=== PATIENT | female | born 1945 | race Caucasian/White ===

== ENCOUNTER 2017-05-16 10:03 | Emergency (ER) | payer OTHER ==
[~2017-05-16] VITALS: Ht 160 cm; Wt 63.0 kg
[~2017-05-16 10:03] MED LIST: AMLO5TAB4 PO; ASPI-664 PO; CARV25TA79 PO; CIPR500T4 PO; DICY20TA59 PO; FERR324T6 PO; GABA100C14 PO; LANT3I SC; LEVE500T8 PO; LINA5TAB PO; LISI20TA11 PO; METF1000 PO; ONDA4TAB35 PO; TRAM-40 PO; [UNRECOGNIZED DRUG - CODE] PO
[2017-05-16 10:06] VITALS: Ht 160 cm; Wt 63.0 kg
--- NOTE | 2017-05-16 10:49 | ERD ---
ER Documentation Chief Complaint Date/Time DATE: 05/16/17 TIME: 10:49 Chief Complaint HEADCAHE , DIZZINESS , NAUSEA HPI 71-year-old female with history of diabetes, hypertension, GERD, seizure disorder, status post remote left BKA ambulatory to the ED with her daughter with multiple complaints. Patient was in her usual state of health until this afternoon. After taking her insulin she experienced generalized weakness, mild, generalized headache, nausea, lightheadedness and malaise. No seizure, syncope or loss of consciousness. Daughter checked her blood sugar and it was 66 mg/dL. Gave some sweets and patient immediately felt better. Currently is back to baseline. No chest pain, palpitations, shortness of breath or cough. No visual changes, focal weakness or numbness. No URI symptoms or body aches. No dysuria, polyuria or flank pain. No fevers or chills. ROS All systems reviewed and are negative except as per history of present illness. Medications Home Meds Active Scripts Ferrous Sulfate (Ferrous Sulfate) 324 Mg Tabsr, 324 MG PO BID, #60 0 Refills Prov:GRAY GARSIA MD 01/18/16 Amlodipine Besylate* (Norvasc*) 5 Mg Tablet, 10 MG PO DAILY, #30 TAB 1 Refill Prov:GRAY GARSIA MD 01/18/16 Carvedilol* (Carvedilol*) 25 Mg Tablet, 50 MG PO BID, #60 TAB 1 Refill Prov:GRAY GARSIA MD 01/18/16 Reported Medications Ibuprofen* (Motrin*) 600 Mg Tab, 600 MG PO Q6H Y for PAIN, TAB 05/16/17 Insulin Lispro (Humalog Kwikpen) 200 Unit/1 Ml Insuln.pen, 5 UNIT SQ AC MEALS, EA 05/16/17 Insulin Glargine,Hum.rec.anlog (Toujeo Solostar) 300 Unit/1 Ml Insuln.pen, 10 UNIT SQ QHS 05/16/17 Omeprazole* (Omeprazole*) 20 Mg Capsule.dr, 20 MG PO DAILY, #30 CAP 05/16/17 Gabapentin* (Gabapentin*) 100 Mg Capsule, 100 MG PO TID, #90 CAP 01/14/16 Metformin Hcl* (Metformin Hcl*) 1,000 Mg Tablet, 1000 MG PO BID WITH MEALS, TAB 06/13/15 Levetiracetam* (Levetiracetam*) 500 Mg Tablet, 500 MG PO BID, TAB 06/13/15 Lisinopril* (Lisinopril*) 20 Mg Tablet, 20 MG PO DAILY, TAB 06/13/15 Aspirin (Low Dose Aspirin) 81 Mg Tablet.dr, 81 MG PO DAILY 06/13/15 Discontinued Reported Medications Insulin Glargine* (Lantus*) 100 Unit/Ml Soln, 27 UNIT SC QHS, VIAL 01/14/16 Linagliptin (TRADJENTA) 5 Mg Tablet, 5 MG PO DAILY 06/13/15 Discontinued Scripts Ciprofloxacin Hcl* (Ciprofloxacin Hcl*) 500 Mg Tablet, 500 MG PO BID, #14 TAB Prov:MEKHI SIDDIQUISTBRITTAS A. DO 01/21/16 Tramadol Hcl* (Ultram*) 50 Mg Tablet, 50 MG PO Q6H Y for PAIN, #20 TAB Prov:MEKHI SIDDIQUISTBRITTAS A. DO 01/21/16 Dicyclomine Hcl* (Bentyl*) 20 Mg Tablet, 20 MG PO QID, #20 TAB Prov:MEKHI SIDDIQUISTBRITTAS A. DO 01/21/16 Ondansetron Hcl* (Zofran* ODT) 4 mg -ODT Tab.disper, 4 MG PO Q6 Y for NAUSEA AND /OR VOMITING, #10 TAB Prov:MEKHI SIDDIQUISTBRITTAS A. DO 01/21/16 Cefuroxime Axetil* (Ceftin*) 250 Mg Tablet, 250 MG PO BID, #20 TAB 0 Refills Prov:GRAY GARSIA MD 01/18/16 Allergies Allergies: Coded Allergies: acetaminophen (Verified Allergy, Unknown, 05/16/17) hydrocodone (Verified Allergy, Unknown, 05/16/17) PMhx/Soc Reviewed in chart. As per HPI. History of Surgery: Yes (RT GREAT TOE AMPUTATION 15 YEARS AGO,LT BKA 4 YEARS AGO) Anesthesia Reaction: No Hx Neurological Disorder: Yes (SEIZURES) Hx Respiratory Disorders: No Hx Cardiac Disorders: Yes (HTN) Hx Psychiatric Problems: No Hx Miscellaneous Medical Probl: Yes (GERD, DM) Hx Alcohol Use: No Hx Substance Use: No Hx Tobacco Use: No FmHx Reviewed in chart. As per HPI. No hypertension, stroke or diabetes Physical Exam Vitals Vital Signs Date Time Temp Pulse Resp B/P Pulse Ox O2 Delivery O2 Flow Rate FiO2 05/16/17 14:59 98.6 85 21 159/71 99 Room Air 05/16/17 13:30 98.8 80 14 150/60 98 Room Air 05/16/17 12:20 98.9 83 15 149/53 99 Room Air 05/16/17 10:06 98.1 84 18 199/85 100 Physical Exam Const: Alert, no acute distress. Head: Atraumatic Eyes: Normal Conjunctiva. Pupils equal reactive light, extraocular movements are intact ENT: Normal External Ears, Nose and Mouth. Neck: Full range of motion. Nontender. Thyromegaly. Resp: Breath sounds are equal and clear to auscultation bilaterally Cardio: Regular rate and rhythm, no murmurs Abd: Soft, non tender, non distended. Normal bowel sounds Skin: No petechiae or rashes Back: No midline or flank tenderness Ext: No cyanosis, or edema. Status post left BKA Neur: Awake and alert. Cranial nerves II through XII are grossly intact. No focal deficit Psych: Normal Mood and Affect Result Diagram: 05/16/17 1104 05/16/17 1305 Results 24 hrs Laboratory Tests Test 05/16/17 10:54 05/16/17 11:04 05/16/17 13:05 Bedside Glucose 242mg/dL White Blood Count 9.110^3/ul Red Blood Count 3.3810^6/ul Hemoglobin 9.2g/dl Hematocrit 28.4% Mean Corpuscular Volume 84.0fl Mean Corpuscular Hemoglobin 27.2pg Mean Corpuscular Hemoglobin Concent 32.4g/dl Red Cell Distribution Width 13.3% Platelet Count 68302^3/UL Mean Platelet Volume 11.7fl Neutrophils % 69.9% Lymphocytes % 24.9% Monocytes % 4.4% Eosinophils % 0.4% Basophils % 0.1% Nucleated Red Blood Cells % 0.0/100WBC Neutrophils # 6.410^3/ul Lymphocytes # 2.310^3/ul Monocytes # 0.410^3/ul Eosinophils # 0.010^3/ul Basophils # 0.010^3/ul Nucleated Red Blood Cells # 0.010^3/ul Sodium Level 137mmol/L 139mmol/L Potassium Level 5.3mmol/L 4.7mmol/L Chloride Level 111mmol/L 110mmol/L Carbon Dioxide Level 15mmol/L 18mmol/L Anion Gap 16 16 Blood Urea Nitrogen 27mg/dl 27mg/dl Creatinine 1.31mg/dl 1.31mg/dl Glucose Level 255mg/dl 225mg/dl Calcium Level 9.0mg/dl 9.0mg/dl Total Bilirubin 0.0mg/dl Direct Bilirubin 0.00mg/dl Indirect Bilirubin 0.0mg/dl Aspartate Amino Transf (AST/SGOT) 13IU/L Alanine Aminotransferase (ALT/SGPT) 24IU/L Alkaline Phosphatase 81IU/L Troponin I < 0.012ng/ml Total Protein 7.3g/dl Albumin 4.3g/dl Globulin 3.00g/dl Albumin/Globulin Ratio 1.43 Current Medications Medications (Trade) Dose Ordered Sig/Le Route PRN Reason Start Time Stop Time Status Last Admin Dose Admin Sodium Chloride (NS) 500 ml @ 500 mls/hr Q1H STAT IV 05/16/17 12:57 05/16/17 13:56 DC 05/16/17 13:33 EKG: Time: 11:02. Sinus rhythm. Ventricular rate 83, normal OK and QRS intervals. No acute ST segment elevation or depression. No axis deviation or ectopy. EP Impression: Normal EKG IMAGING: PROCEDURE: Chest x-ray CLINICAL INDICATION: Weakness TECHNIQUE: Chest single view COMPARISON: 01/15/2016 FINDINGS: The heart is normal in size. There is stable atherosclerotic aortic calcification. The pulmonary vessels are normal in caliber. The lungs are clear. The costophrenic angles are sharp. The visualized bony thorax is unremarkable. IMPRESSION: No acute cardiopulmonary disease. Stable atherosclerotic aortic calcification There is abnormal calcification right paratracheal space with deviation of the trachea to the left. This may be related to a large thyroid lobe with nodule, tortuous vascularity, or adenopathy. Recommend ultrasound correlation. RPTAT: HH .Demetrius Lincoln MD, MD Date Time Electronically viewed and signed by .Demetrius Lincoln MD, MD on 05/16/2017 11:38 .W/ Procedures/MDM DOCUMENTS REVIEWED: ED nurse, no prior records ED COURSE: Normal saline 500 cc 2. REEXAMINATION/REEVALUATION: Time: 15:00. Doing well. Vital signs stable. Asymptomatic [employer]ISION [employer]KIN-year-old female with history of diabetes, hypertension, GERD, seizure disorder, status post remote left BKA ambulatory to the ED with her daughter with multiple complaints including headache, generalized weakness and malaise. Patient was mildly hypoglycemic and symptoms resolved with oral nutrition. No chest pain, ischemic EKG changes or other signs of ACS. Abdominal exam is benign without tenderness, masses or other signs of an acute intra-abdominal process including abdominal aortic aneurysm or obstruction. Chronic renal insufficiency not significantly changed from baseline. Now with mild hyperglycemia but no DKA or HONK. No fever, leukocytosis or signs of an occult infectious process. Mild headache not consistent with subarachnoid hemorrhage, no focal deficit or indication for neuroimaging. Chest x-ray reveals thyroid abnormality with the patient is already familiar with and has had prior workup which was negative hence no further evaluation be done today. Patient observed in the ED for over 4 hours, asymptomatic and wants to go home. I discussed the case with her PMD, recommends discharge with outpatient follow-up in his office tomorrow. Stable for discharge precautionary instructions and outpatient follow -up as counseled. Counseled patient and daughter regarding diagnostic workup, diagnosis and need for followup. Understands to return to ED if symptoms recur, worsen or any other concerns. Observation Note: Time: 4 hours Family Hx: No Hypertension Evaluation: Multiple exams showed improving symptoms and no evidence of acute neurologic deficit, unstable vital signs or hypoglycemia. Departure Diagnosis: Primary Impression: Hypoglycemia Additional Impressions: Diabetes mellitus Diabetes mellitus type: type 2 Diabetes mellitus complication status: without complication Diabetes mellitus intermodal truck driver insulin use: with intermodal truck driver use Qualified Code: E11.9 - Type 2 diabetes mellitus without complication, with long-term current use of insulin Dehydration Chronic kidney disease Chronic kidney disease stage: unspecified stage Qualified Code: N18.9 - Chronic kidney disease, unspecified stage Condition: Stable (Improved) ANGELES HERNANDEZ MD May 16, 2017 10:49
[2017-05-16 11:23] LABS: ADD SCAN DIFF NO
[2017-05-16 11:38] LABS: BASOPHILS % 0.1 % (0.0-2.0); EOSINOPHILS % 0.4 % (0.0-7.0); HEMATOCRIT 28.4 % (37.0-47.0); HEMOGLOBIN 9.2 g/dl (12.0-16.0); LYMPHOCYTES # 2.3 10^3/ul (0.8-2.9); LYMPHOCYTES % 24.9 % (15.0-51.0); MEAN CORPUSCULAR HEMOGLOBIN 27.2 pg (29.0-33.0); MEAN CORPUSCULAR HGB CONC 32.4 g/dl (32.0-37.0); MONOCYTE # 0.4 10^3/ul (0.3-0.9); MONOCYTES % 4.4 % (0.0-11.0); NEUTROPHIL # 6.4 10^3/ul (1.6-7.5); NEUTROPHILS % 69.9 % (39.0-77.0); PLATELET COUNT 257 10^3/UL (140-415); RED BLOOD COUNT 3.38 10^6/ul (4.20-5.40); RED CELL DISTRIBUTION WIDTH 13.3 % (11.5-14.5); WHITE BLOOD COUNT 9.1 10^3/ul (4.8-10.8)
--- NOTE | 2017-05-16 11:38 | RADRPT ---
PROCEDURE: Chest x-ray CLINICAL INDICATION: Weakness TECHNIQUE: Chest single view COMPARISON: 01/15/2016 FINDINGS: The heart is normal in size. There is stable atherosclerotic aortic calcification. The pulmonary ve ssels are normal in caliber. The lungs are clear. The costophrenic angles are sharp. The visualiz ed bony thorax is unremarkable. IMPRESSION: No acute cardiopulmonary disease. Stable atherosclerotic aortic calcification There is abnormal calcification right paratracheal space with deviation of the trachea to the left. This may be related to a large thyroid lobe with nodule, tortuous vascularity, or adenopathy. [place] mmend ultrasound correlation. RPTAT: HH .Demetrius Lincoln MD, Date Time Electronically viewed and signed by .Demetrius Lincoln MD, on 05/16/2017 11:38 .W/
[2017-05-16 11:39] LABS: MEAN PLATELET VOLUME 11.7 fl (7.4-10.4)
[2017-05-16] MEDS ORDERED: OMEP20CA16 PO (11:58)
[2017-05-16] MEDS ORDERED: INSU300I SQ (11:58)
[2017-05-16] MEDS ORDERED: INSU200I SQ (11:59)
[2017-05-16] MEDS ORDERED: IBUP-1542 PO (11:59)
[2017-05-16 12:06] LABS: ALANINE AMINOTRANSFERASE 24 IU/L (13-69); ALBUMIN 4.3 g/dl (3.3-4.9); ALBUMIN/GLOBULIN RATIO 1.43; ALKALINE PHOSPHATASE 81 IU/L (42-121); ASPARTATE AMINO TRANSFERASE 13 IU/L (15-46); BLOOD UREA NITROGEN 27 mg/dl (7-20); CARBON DIOXIDE 15 mmol/L (21-31); CHLORIDE 111 mmol/L (97-110); CREATININE 1.31 mg/dl (0.44-1.00); GLUCOSE 255 mg/dl (70-220); SODIUM 137 mmol/L (135-144); TOTAL PROTEIN 7.3 g/dl (6.1-8.1)
[2017-05-16 12:27] LABS: ANION GAP 16 (8-16); POTASSIUM 5.3 mmol/L (3.5-5.1); TROPONIN-I < 0.012 ng/ml (0.00-0.12)
[2017-05-16] MEDS ORDERED: SOD CHLORIDE 0.9% 500 ML IV STA (12:57)
[2017-05-16 13:43] LABS: CREATININE 1.31 mg/dl (0.44-1.00); POTASSIUM 4.7 mmol/L (3.5-5.1)
[2017-05-16 14:59] VITALS: BP 159/71; PULSE 85; RESP 21; TEMP 98.6
== END 2017-05-16 15:08 | disposition home or self-care (01) ==
LOC: E/R 10:03
DX: E11.649 Type 2 diabetes mellitus with hypoglycemia without coma (principal); E86.0 Dehydration; I12.9 Hypertensive chronic kidney disease with stage 1 through stage 4 chronic kidney disease, or unspecified chronic kidney disease; N18.9 Chronic kidney disease, unspecified; Z79.4 Long term (current) use of insulin; Z79.82 Long term (current) use of aspirin; Z79.84 Long term (current) use of oral hypoglycemic drugs
CPT/HCPCS: 71010; 80048; 80053; 82962; 84484; 85025; 93005; J7040; 36415; 96360; 96361

== ENCOUNTER 2017-08-30 09:06 | Inpatient (IN) | payer MEDICARE, OTHER ==
[~2017-08-30] VITALS: Ht 157.5 cm; Wt 55.9 kg
[~2017-08-30 09:06] MED LIST changes: -CIPR500T4 PO; -DICY20TA59 PO; +IBUP-1542 PO; +INSU200I SQ; +INSU300I SQ; -LANT3I SC; -LINA5TAB PO; +OMEP20CA16 PO; -ONDA4TAB35 PO; -TRAM-40 PO; -[UNRECOGNIZED DRUG - CODE] PO
[2017-08-30] MEDS ORDERED: AMLO5TAB4 PO (10:01)
[2017-08-30] MEDS ORDERED: ASPI-664 PO (10:03)
[2017-08-30] MEDS ORDERED: CARV12.598 PO (10:05)
[2017-08-30] MEDS ORDERED: LEVE-5 PO (10:05)
[2017-08-30] MEDS ORDERED: SIMV10TA PO (10:06)
[2017-08-30] MEDS ORDERED: INSU3INS2 SQ (10:06)
[2017-08-30] MEDS ORDERED: OMEP20CA16 PO (10:07)
[2017-08-30] MEDS ORDERED: LOSA25TA5 PO (10:07)
[2017-08-30] MEDS ORDERED: ONDANSETRON 4 MG INJ IV PRN ×2 (10:30→14:00)
[2017-08-30] MEDS ORDERED: NA POLYST SULFON 15 GM/60 ML BTL PO ONE (11:30)
[2017-08-30 12:38] VITALS: BP 178/77; PULSE 88; Ht 157.5 cm; Wt 55.9 kg
--- NOTE | 2017-08-30 13:19 | ERD ---
ER Documentation Chief Complaint Chief Complaint sent by pmd for blood transfusion, unknown h&h HPI Patient is a 72-year-old female with hypertension and diabetes who presents for a blood transfusion. The patient was sent by Dr. Dexter for "blood transfusion". The patient said that she has had blood in her stool and urine for the past 15 days. She denies weakness or shortness of breath. She denies pain. She has had no treatment as of yet. ROS All systems reviewed and are negative except as per history of present illness. Medications Home Meds Reported Medications Omeprazole* (Omeprazole*) 20 Mg Capsule.dr, 20 MG PO DAILY, #30 CAP 08/30/17 Losartan Potassium* (Losartan Potassium*) 25 Mg Tablet, 25 MG PO DAILY, TAB 08/30/17 Simvastatin* (Zocor*) 10 Mg Tablet, 10 MG PO QHS, #30 TAB 08/30/17 Insulin Glargine/Lixisenatide (Soliqua 100 Unit-33 Mcg/ml Pen) 3 Ml Insuln.pen, 20 UNITS SQ DAILY 08/30/17 Levetiracetam* (Keppra*) 500 Mg Tablet, 500 MG PO BID, TAB 08/30/17 Carvedilol* (Coreg*) 12.5 Mg Tablet, 12.5 MG PO BID, #60 TAB 08/30/17 Aspirin* (Aspirin* EC) 81 Mg Tablet.dr, 81 MG PO DAILY, TAB 08/30/17 Amlodipine Besylate* (Norvasc*) 5 Mg Tablet, 5 MG PO DAILY, TAB 08/30/17 Gabapentin* (Gabapentin*) 100 Mg Capsule, 100 MG PO TID, #90 CAP 01/14/16 Levetiracetam* (Levetiracetam*) 500 Mg Tablet, 500 MG PO BID, TAB 06/13/15 Discontinued Reported Medications Ibuprofen* (Motrin*) 600 Mg Tab, 600 MG PO Q6H Y for PAIN, TAB 05/16/17 Insulin Lispro (Humalog Kwikpen) 200 Unit/1 Ml Insuln.pen, 5 UNIT SQ AC MEALS, EA 05/16/17 Insulin Glargine,Hum.rec.anlog (Toujeo Solostar) 300 Unit/1 Ml Insuln.pen, 10 UNIT SQ QHS 05/16/17 Omeprazole* (Omeprazole*) 20 Mg Capsule.dr, 20 MG PO DAILY, #30 CAP 05/16/17 Metformin Hcl* (Metformin Hcl*) 1,000 Mg Tablet, 1000 MG PO BID WITH MEALS, TAB 06/13/15 Lisinopril* (Lisinopril*) 20 Mg Tablet, 20 MG PO DAILY, TAB 06/13/15 Aspirin (Low Dose Aspirin) 81 Mg Tablet.dr, 81 MG PO DAILY 06/13/15 Discontinued Scripts Ferrous Sulfate (Ferrous Sulfate) 324 Mg Tabsr, 324 MG PO BID, #60 0 Refills Prov:GRAY GARSIA MD 01/18/16 Amlodipine Besylate* (Norvasc*) 5 Mg Tablet, 10 MG PO DAILY, #30 TAB 1 Refill Prov:GRAY GARSIA MD 01/18/16 Carvedilol* (Carvedilol*) 25 Mg Tablet, 50 MG PO BID, #60 TAB 1 Refill Prov:GRAY GARSIA MD 01/18/16 Allergies Allergies: Coded Allergies: acetaminophen (Verified Allergy, Unknown, 08/30/17) hydrocodone (Verified Allergy, Unknown, 08/30/17) PMhx/Soc Anesthesia Reaction: No Hx Neurological Disorder: No Hx Respiratory Disorders: No Hx Cardiac Disorders: Yes (HTN) Hx Psychiatric Problems: No Hx Miscellaneous Medical Probl: No Hx Alcohol Use: No Hx Substance Use: No Hx Tobacco Use: No Smoking Status: Never smoker FmHx Family History: diabetes Physical Exam Vitals Vital Signs Date Time Temp Pulse Resp B/P Pulse Ox O2 Delivery O2 Flow Rate FiO2 08/30/17 12:38 97.6 88 178/77 96 Room Air 08/30/17 11:36 78 20 120/78 99 Room Air 08/30/17 09:51 Nasal Cannula 2 08/30/17 09:10 97.8 82 18 118/57 98 Physical Exam Const: No acute distress Head: Atraumatic Eyes: Normal Conjunctiva ENT: Normal External Ears, Nose and Mouth. Neck: Full range of motion..~ No meningismus. Resp: Clear to auscultation bilaterally Cardio: Regular rate and rhythm, no murmurs Abd: Soft, non tender, non distended. Normal bowel sounds Skin: Pale skin Back: No midline or flank tenderness Ext: No cyanosis, or edema Neur: Awake and alert Psych: Normal Mood and Affect Result Diagram: 08/30/17 0840 08/30/17 0840 Results 24 hrs Laboratory Tests Test 08/30/17 08:40 White Blood Count 9.210^3/ul Red Blood Count 3.1210^6/ul Hemoglobin 8.1g/dl Hematocrit 26.6% Mean Corpuscular Volume 85.3fl Mean Corpuscular Hemoglobin 26.0pg Mean Corpuscular Hemoglobin Concent 30.5g/dl Red Cell Distribution Width 13.7% Platelet Count 93854^3/UL Mean Platelet Volume 9.9fl Neutrophils % 61.6% Lymphocytes % 27.1% Monocytes % 7.6% Eosinophils % 3.1% Basophils % 0.3% Nucleated Red Blood Cells % 0.0/100WBC Neutrophils # 5.710^3/ul Lymphocytes # 2.510^3/ul Monocytes # 0.710^3/ul Eosinophils # 0.310^3/ul Basophils # 0.010^3/ul Nucleated Red Blood Cells # 0.010^3/ul Prothrombin Time 12.5Sec Prothrombin Time Ratio 1.0 INR International Normalized Ratio 0.93 Activated Partial Thromboplast Time 31.6Sec Sodium Level 144mmol/L Potassium Level 5.6mmol/L Chloride Level 111mmol/L Carbon Dioxide Level 20mmol/L Anion Gap 19 Blood Urea Nitrogen 44mg/dl Creatinine 2.12mg/dl Glucose Level 148mg/dl Calcium Level 8.9mg/dl Total Bilirubin 0.1mg/dl Direct Bilirubin 0.00mg/dl Indirect Bilirubin 0.1mg/dl Aspartate Amino Transf (AST/SGOT) 13IU/L Alanine Aminotransferase (ALT/SGPT) 21IU/L Alkaline Phosphatase 76IU/L Troponin I < 0.012ng/ml Total Protein 8.0g/dl Albumin 4.1g/dl Globulin 3.90g/dl Albumin/Globulin Ratio 1.05 Current Medications Medications (Trade) Dose Ordered Sig/Le Route PRN Reason Start Time Stop Time Status Last Admin Dose Admin Ondansetron HCl (Zofran Inj) 4 mg BRIDGE ORDER PRN IV NAUSEA AND/OR VOMITING 08/30/17 10:30 08/31/17 10:29 Sodium Polystyrene Sulfonate (Kayexalate) 30 gm ONCE ONCE PO 08/30/17 11:30 08/30/17 11:31 DC 08/30/17 11:32 Procedures/MDM EKG read by me: Rate/Rhythm: Regular rate and rhythm at a normal rate Intervals: Normal Impression: No evidence of ischemia or arrhythmia Patient is a 72-year-old female presents with acute GI bleed. Her hemoglobin is 8.1 and she currently does not need transfusion but if she drops below 7 she will require transfusion. She has elevated BUN and creatinine as well showing acute renal failure likely from GI bleed. Her potassium is elevated at 5.6 and she was given Kayexalate. She will be admitted to the panel team to a medical surgical bed. She will likely benefit from GI consultation. Departure Diagnosis: Primary Impression: Anemia Anemia type: unspecified type Qualified Code: D64.9 - Anemia, unspecified type Additional Impressions: ARF (acute renal failure) Acute renal failure type: unspecified Qualified Code: N17.9 - Acute renal failure, unspecified acute renal failure type GI bleed GI bleed type/associated pathology: anorectal hemorrhage Qualified Code: K62.5 - Gastrointestinal hemorrhage associated with anorectal source Hyperkalemia Condition: NEHA Prajapati MD Aug 30, 2017 13:19
[2017-08-30 13:20] VITALS: BP 142/63; PULSE 89
[2017-08-30] MEDS ORDERED: SOD CHLORIDE 0.9% 1,000 ML IV SCH (13:34)
--- NOTE | 2017-08-30 13:55 | HP ---
Date/Time of Note Date/Time of Note DATE: 08/30/17 TIME: 13:44 Assessment/Plan VTE Prophylaxis VTE Prophylaxis Intervention: ambulation Lines/Catheters IV [facility]from [facility] Saline Lock Assessment/Plan Chief Complaint/Hosp Course 72-year-old female, with a family hx of colon cancer (mother) who was sent by primary care doctor to the emergency room for evaluation of anemia and positive FOBT done as outpatient. 1.Mild Anemia: Differential diagnoses includes: decreased production, sequestration, destruction/loss. At this time most concerning is occult GI blood loss vs colon malignancy given the patients reported guaiac positive stools (done outpt) and hypochromic indices and strong family hx of colon cancer (mother). Plan: N.p.o. except medications, PPI prophylaxis,GI consult for C-scope evaluation Repeat FOBT, Check FE studies Follow serial HCT (check q12h) Needs routine health screening (colonoscopy as age recommended). 2. RODRICK on likely CKD. Note patient with long-standing hx of DM put her at risk of DM nephropathy. -Nephrology consult -Monitor renal fxn closely-Renally dose meds 3.Metabolic acidosis/Hyperkalemia with RODRICK/Possible GI bleed. -Status post Kayexalate. -Repeat K level, f/u with nephro recs. 4. Essential hypertension -Resume home medications 5. Hypercholesterolemia. -Resume statin. Obtain lipid panel and titrate dose as indicated. 6. Type 2 diabetes. -Obtain A1c. Accu-Cheks/ISS/Lantus based on weight-titrate as indicated 7. Diabetic neuropathy. -Resume gabapentin 7. Diabetic foot ulcer, right. Chronic -Wound care consult and start wound care protocol. 9. Peripheral vascular disease, status post left AKA. -Hold aspirin secondary to GI bleed. 10. Constipation -Stool softeners/ PRN Laxatives. 11. Hx biliary Pancreatitis, status post ERCP with sphincterotomy and stent placement. -Defer sx for further recs GI Prophylaxis: PPIs Rest of the management per clinical course and input from consultants. Approximately 60mins spent on this H &P Patient was seen in collaboration with . Problems: HPI/ROS Admit Date/Time Admit Date/Time Aug 30, 2017 at 10:29 Hx of Present Illness This is a 72-year-old female with a past medical history of hypertension, hypercholesterolemia, type 2 diabetes, iron deficiency anemia,atherosclerosis, left AKA, Pancreatitis with status post ERCP with sphincterotomy and stent placement, who was sent by patient's primary care doctor for evaluation of anemia with rectal bleed/positive FOBT. Patient denied any visible melena, hematochezia, or hematemesis,unintentional weight loss or poor appetitive. However, she reported that she has been tested for positive occult blood before and her mother of colon cancer. Patient also takes aspirin and iron at home. She is also constipated. Patient denied nausea, vomiting, abdominal pain , loss of appetite, dysuria, hematuria, hemoptysis, cough, chest pain, palpitation, shortness of breath or other constitutional symptoms. Patient denied fever or chills. She denied any hx of cancer.She never had colonoscopy or endoscopy. In the emergency room, patient's hemoglobin was 8.1, hematocrit 26.6, potassium 5.6, BUN 44, and creatinine 2.12. Patient was given 30 g Kayexalate in the emergency room. There is no repeat potassium available at this time. ROS A 12 point review of system was assessed and is negative other than what is mentioned in the HPI. PMH/Family/Social Past Medical History See HPI Past Surgical History See HPI Family History Significant Family History: cancer (mother of colon cancer) Social History Patient denied history of alcohol, smoking or illicit drug use but Smoking Status: Never smoker Exam/Review of Systems Vital Signs Vitals Vital Signs Date Time Temp Pulse Resp B/P Pulse Ox O2 Delivery O2 Flow Rate FiO2 08/30/17 13:20 89 142/63 08/30/17 12:38 97.6 96 Room Air 08/30/17 11:36 20 08/30/17 09:51 2 Exam Exam General: Well developed,adequately built female, not in any acute distress . HEENT: Normocephalic, Atraumatic, No laceration or hematoma; Eyes: PEERL, Conjunctiva clear, Anicteric sclera Neck: Supple without any lymphadenopathy, nontender, no JVD, no carotid bruits, trachea midline, no thyromegaly Cardiac: S1, S2 auscultated, regular rhythm and rate, no mumurs or gallop Pulmonary: Normal respiratory effort. Chest clear to auscultation bilaterally, no adventitious breath sounds GI: Abdomen normal to inspection. Soft, non tender, non- distended, no masses, no rebound tenderness or guarding. Bowel sounds active on all four quadrants Genitourinary: With some dysuria. No hematuria. Extremities: Left AKA. No cyanosis, clubbing, or edema. Pulses [2+] bilaterally. Full ROM on all THREE extremities. No focal weakness appreciated. Neurologic: Alert to person, place, time, and situation. Affect appropriate, intact sensation. Skin: Clean,dry, and intact. No ecchymosis, no rashes, or lesions Labs Result Diagram: 08/30/17 0840 08/30/17 0840 BERNARD PYLE NP Aug 30, 2017 13:54
--- NOTE | 2017-08-30 13:56 | CONS ---
Date/Time of Note Date/Time of Note DATE: 08/30/17 TIME: 13:55 Assessment/Plan Assessment/Plan Additional Assessment/Plan 1. Non oliguric Acute kidney injury on possible CKD due to prerenal azotemi + ATN f 2. 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 Acute hyperkalemia due to RODRICK on CKD 4. Severe Iron deficiency anemia with possible FOBT Positive, pt also has contributing anemia of CKD 5. H/o Type II DM poorly controlled with HBA1c 8.9 6. H/o HTN 7. H/o PVD Plan: Pt has RODRICK on CKD Ferrlecit 125mg IV daily x 5 days will order urine studies including urine Na, urine prot/cr ratio, Urine Eosinophils, Uric acid, Renal US has been ordered Pt is developing hyperchloremic metabolic acidosis- d/c NS, switch to 1/2 NS at 75 cc/hr GI work up as per PMD and Monitoring of H/H Q 6 hr Thanks for consultation, we will continue to follow up on patient Consultation Date/Type/Reason Admit Date/Time Aug 30, 2017 at 10:29 Date of Consultation: Aug 30, 2017 Type of Consultation: NEPHROLOGY Reason for Consultation acute kidney injury, Hyperkalemia Referring Provider: JUSTIN CHANDLER of Present Illness 72-year-old female with a past medical history of hypertension, hypercholesterolemia, type 2 diabetes, iron deficiency anemia,atherosclerosis, left AKA, Pancreatitis with status post ERCP with sphincterotomy and stent placement, who was sent by patient's primary care doctor for evaluation of anemia with rectal bleed/positive FOBT. pt give h/o positive FOBT but denies any BRBPR. Pt denies any previous PMHx of CKD, kidney stone and kidney cyst. In the emergency room, patient's hemoglobin was 8.1, hematocrit 26.6, potassium 5.6, BUN 44, and creatinine 2.12. Patient was given 30 g Kayexalate in the emergency room. pt also has severe iron deficiency with Iron saturation level 7. BP stable, afebrile Renal has been consulted for RODRICK, Metabolic acidossi and Hyperkalemia Constitutional: no complaints Eyes: no complaints ENT: no complaints Respiratory: no complaints Cardiovascular: no complaints Gastrointestinal: blood, constipation Genitourinary: no complaints Musculoskeletal: no complaints Skin: no complaints Neurologic: no complaints Endocrine: no complaints Lymphatic: no complaints Psychological: no complaints Immunologic: no complaints Past Medical History Medical History: diabetes, high cholesterol, hypertension, other ( atherosclerotic vascular disease ) Past Surgical History Past Surgical Hx: no surgical history Family History Significant Family History: no pertinent family hx Social History Alcohol Use: none Smoking Status: Never smoker Drug Use: none Exam/Review of Systems Vital Signs Vitals Vital Signs Date Time Temp Pulse Resp B/P Pulse Ox O2 Delivery O2 Flow Rate FiO2 08/30/17 13:20 89 142/63 08/30/17 12:38 97.6 96 Room Air 08/30/17 11:36 20 08/30/17 09:51 2 Exam Constitutional: alert Psych: no complaints Head: normocephalic Eyes: nl conjunctiva ENMT: nl external ears & nose Neck: non-tender, supple Respiratory: clear to auscultation, diminished breath sounds, normal air movement Cardiovascular: nl pulses, regular rate and rhythm Gastrointestinal: firm, non-tender, soft Musculoskeletal: muscle tone, muscle weakness, nl extremities to inspection, nl gait and stance Extremities: normal pulses Neurological: OUTER DIAMETER TECHNICIAN II-XII intact, nl mental status, nl speech, nl strength Results Result Diagram: 08/30/17 0840 08/30/17 0840 Results 24 hrs Laboratory Tests Test 08/30/17 08:40 White Blood Count 9.2 Red Blood Count 3.12 L Hemoglobin 8.1 L Hematocrit 26.6 L Mean Corpuscular Volume 85.3 Mean Corpuscular Hemoglobin 26.0 L Mean Corpuscular Hemoglobin Concent 30.5 L Red Cell Distribution Width 13.7 Platelet Count 408 # Mean Platelet Volume 9.9 Neutrophils % 61.6 Lymphocytes % 27.1 Monocytes % 7.6 Eosinophils % 3.1 Basophils % 0.3 Nucleated Red Blood Cells % 0.0 Neutrophils # 5.7 Lymphocytes # 2.5 Monocytes # 0.7 Eosinophils # 0.3 Basophils # 0.0 Nucleated Red Blood Cells # 0.0 Prothrombin Time 12.5 Prothrombin Time Ratio 1.0 INR International Normalized Ratio 0.93 Activated Partial Thromboplast Time 31.6 Sodium Level 144 Potassium Level 5.6 H Chloride Level 111 H Carbon Dioxide Level 20 L Anion Gap 19 H Blood Urea Nitrogen 44 H Creatinine 2.12 H Glucose Level 148 Calcium Level 8.9 Total Bilirubin 0.1 L Direct Bilirubin 0.00 Indirect Bilirubin 0.1 Aspartate Amino Transf (AST/SGOT) 13 L Alanine Aminotransferase (ALT/SGPT) 21 Alkaline Phosphatase 76 Troponin I < 0.012 Total Protein 8.0 Albumin 4.1 Globulin 3.90 H Albumin/Globulin Ratio 1.05 Medications Medications Current Medications Sodium Chloride (NS) 1,000 ml @ 75 mls/hr [id number] IV ; Start 08/30/17 at 13:34 ; Status UNV Ondansetron HCl (Zofran Inj) 4 mg Q6H PRN IV NAUSEA AND/OR VOMITING; Start at 14:00; Status UNV Acetaminophen (Tylenol Tab) 650 mg Q6H PRN PO PAIN LEVEL 1-3 OR FEVER; Start 08/30/17 at 14:00; Status UNV Acetaminophen (Tylenol Supp) 650 mg Q6H PRN MT PAIN LEVEL 1-3 OR FEVER; Start 08/30/17 at 14:00; Status UNV Morphine Sulfate (morphine) 2 mg Q4H PRN IV SEVERE PAIN LEVEL 7-10; Start at 14:00; Status UNV Amlodipine Besylate (Norvasc) 5 mg DAILY PO ; Start 08/31/17 at 09:00; Status UNV Carvedilol (Coreg) 12.5 mg BID PO ; Start 08/30/17 at 21:00; Status UNV Gabapentin (Neurontin) 100 mg TID PO ; Start 08/30/17 at 21:00; Status UNV Levetiracetam (Keppra) 500 mg BID PO ; Start 08/30/17 at 21:00; Status UNV Losartan Potassium (Cozaar) 25 mg DAILY PO ; Start 08/31/17 at 09:00; Status UNV Miscellaneous Information 10 mg QHS PO ; Start 08/30/17 at 21:00; Status UNV Pantoprazole (Protonix Iv) 40 mg BID@06,18 IV ; Start 08/30/17 at 18:00; Status UNV Influenza Virus Vaccine (Fluzone) 0.5 ml ONCE ONCE IM* ; Start 08/31/17 at 10: 00; Stop 08/31/17 at 10:01 SHADI GOINS MD Aug 30, 2017 13:56
[2017-08-30] MEDS ORDERED: ACETAMINOPHEN 650 MG SUPP PR PRN (14:00)
[2017-08-30] MEDS ORDERED: morphine 2 MG INJ IV PRN (14:00)
[2017-08-30] MEDS ORDERED: NACL 0.9% 3 ML SYG IV SCH (14:00)
[2017-08-30] MEDS ORDERED: GLUCAGON 1 MG INJ IM PRN (14:30)
[2017-08-30] MEDS ORDERED: GLUCOSE GEL 15 GRAM TUBE BUCCAL PRN (14:30)
[2017-08-30] MEDS ORDERED: DEXTROSE 50% 50 ML SYRINGE IV PRN ×2 (14:30)
[2017-08-30] MEDS ORDERED: GLUCOSE GEL 15 GRAM TUBE PO PRN ×2 (14:30)
[2017-08-30] MEDS ORDERED: AMLODIPINE 5 MG TAB PO SCH (15:30)
[2017-08-30 15:40] VITALS: BP 148/73; PULSE 89; RESP 18
--- NOTE | 2017-08-30 16:22 | CONS ---
Date/Time of Note Date/Time of Note DATE: 08/30/17 TIME: 16:03 Assessment/Plan Assessment/Plan Chief Complaint/Hosp Course Summary Assessment and Plan: Assessment: Anemia-hypochromic Positive FOBT (outpatient) Plan: KUB to assess if CBD stent has been removed Clear liquids today and in am Then NPO after 10:00 am Colonoscopy tomorrow Endoscopy - risks/benefits/alternatives/indications of procedure and sedation/ anesthesia discussed with patient who states understanding and gives informed consent to proceed. PARQ held and questions were answered. 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 She denies seeing any BRBPR, black tarry stools, hematemesis, nausea, vomiting, diarrhea, abdominal pain,or unintentional weight loss. She does complain of constipation since she started po iron replacement. She states she has never had a colonoscopy family history of colon cancer i.e. mother, did have an ERCP January 2016 with stent placement, not sure if stent has been removed. Will plan for colonoscopy tomorrow and order KUB, to assess if stent has been removed. Past Medical History: DM HTN ERCP with stent placement 01/2016-no indication stent was removed Renal disease GERD HAS NEVER HAD A COLON Allergies: acetaminophen Hydrocodone Family History: Family history of colon cancer i.e. mother Social History: Denies drinking Denies smoking Denies drug use PHYSICAL EXAMINATION: GENERAL: Well developed, well nourished, alert & oriented x 3, in no acute distress SKIN: No lesions, no stigmata chronic liver disease, no evidence of bleeding diathesis LYMPHATIC: No palpable lymphadenopathy. HEAD: Normocephalic, atraumatic, no tenderness. EYES: Pupils equal reactive to light and accommodation, full extraocular movements, sclera clear, non-icteric, no discharge. EARS/NOSE AND THROAT: Ears normal, nose normal, oropharynx normal, oral membranes well hydrated without lesions. NECK: Supple, no masses, thyroid normal, JVP within normal limits, carotids normal without bruits. CHEST: Inspection within normal limits. CARDIOVASCULAR: Heart: Regular rate and rhythm, no murmurs, gallops or rubs. Peripheral pulses present within normal limits, no cyanosis, clubbing or edemas. No pulsatile abdominal mass RESPIRATORY: Lungs clear to auscultation and percussion, no wheezing, no rubs GASTROINTESTINAL AND LIVER: Abdomen: Soft, non tenderness, non-distended, no hernias, no masses, no organomegaly, no ascites, no guarding, no rebound tenderness, normoactive bowel sounds. Rectal: Deferred. GENITOURINARY: Female genitalia within normal limits. EXTREMITIES: No cyanosis, clubbing or edema. Problems: Consultation Date/Type/Reason Admit Date/Time Aug 30, 2017 at 10:29 Date of Consultation: Aug 30, 2017 Type of Consultation: GI Reason for Consultation (+) FOBT, anemia Past Medical History Medical History: diabetes, gallstones, GERD, hypertension, renal disease, other (Constipation ) Past Surgical History Past Surgical Hx: endoscopy (ERCP with stent placement ) Family History Significant Family History: cancer (colon cancer i.e. mother) Social History Alcohol Use: none Smoking Status: Never smoker Drug Use: none Exam/Review of Systems Vital Signs Vitals Vital Signs Date Time Temp Pulse Resp B/P Pulse Ox O2 Delivery O2 Flow Rate FiO2 08/30/17 13:20 89 142/63 08/30/17 12:38 97.6 96 Room Air 08/30/17 11:36 20 08/30/17 09:51 2 Results Result Diagram: 08/30/17 0840 08/30/17 0840 Results 24 hrs Laboratory Tests Test 08/30/17 08:40 White Blood Count 9.2 Red Blood Count 3.12 L Hemoglobin 8.1 L Hematocrit 26.6 L Mean Corpuscular Volume 85.3 Mean Corpuscular Hemoglobin 26.0 L Mean Corpuscular Hemoglobin Concent 30.5 L Red Cell Distribution Width 13.7 Platelet Count 408 # Mean Platelet Volume 9.9 Neutrophils % 61.6 Lymphocytes % 27.1 Monocytes % 7.6 Eosinophils % 3.1 Basophils % 0.3 Nucleated Red Blood Cells % 0.0 Neutrophils # 5.7 Lymphocytes # 2.5 Monocytes # 0.7 Eosinophils # 0.3 Basophils # 0.0 Nucleated Red Blood Cells # 0.0 Prothrombin Time 12.5 Prothrombin Time Ratio 1.0 INR International Normalized Ratio 0.93 Activated Partial Thromboplast Time 31.6 Sodium Level 144 Potassium Level 5.6 H Chloride Level 111 H Carbon Dioxide Level 20 L Anion Gap 19 H Blood Urea Nitrogen 44 H Creatinine 2.12 H Glucose Level 148 Hemoglobin A1c 8.9 H Calcium Level 8.9 Iron Level 24 L Total Iron Binding Capacity 346 Percent Iron Saturation 7 L Ferritin 11.4 Total Bilirubin 0.1 L Direct Bilirubin 0.00 Indirect Bilirubin 0.1 Aspartate Amino Transf (AST/SGOT) 13 L Alanine Aminotransferase (ALT/SGPT) 21 Alkaline Phosphatase 76 Troponin I < 0.012 Total Protein 8.0 Albumin 4.1 Globulin 3.90 H Albumin/Globulin Ratio 1.05 Triglycerides Level 76 Cholesterol Level 97 L LDL Cholesterol, Calculated 52 HDL Cholesterol 30 L Cholesterol/HDL Ratio 3.2 Thyroid Stimulating Hormone (TSH) 0.035 L Medications Medications Current Medications Sodium Chloride (NS) 1,000 ml @ 75 mls/hr [id number] IV Last administered on t 14:18; Admin Dose 75 MLS/HR; Start 08/30/17 at 13:34 Ondansetron HCl (Zofran Inj) 4 mg Q6H PRN IV NAUSEA AND/OR VOMITING; Start at 14:00 Acetaminophen (Tylenol Tab) 650 mg Q6H PRN PO PAIN LEVEL 1-3 OR FEVER; Start 08/30/17 at 14:00 Acetaminophen (Tylenol Supp) 650 mg Q6H PRN OR PAIN LEVEL 1-3 OR FEVER; Start 08/30/17 at 14:00 Morphine Sulfate (morphine) 2 mg Q4H PRN IV SEVERE PAIN LEVEL 7-10; Start at 14:00 Carvedilol (Coreg) 12.5 mg BID PO ; Start 08/30/17 at 21:00 Gabapentin (Neurontin) 100 mg TID PO ; Start 08/30/17 at 21:00 Levetiracetam (Keppra) 500 mg BID PO ; Start 08/30/17 at 21:00 Losartan Potassium (Cozaar) 25 mg DAILY PO ; Start 08/31/17 at 09:00 Atorvastatin Calcium (Lipitor) 10 mg DAILY@21 PO ; Start 08/30/17 at 21:00 Pantoprazole (Protonix Iv) 40 mg BID@06,18 IV ; Start 08/30/17 at 18:00 Influenza Virus Vaccine (Fluzone) 0.5 ml ONCE ONCE IM* ; Start 08/31/17 at 10: 00; Stop 08/31/17 at 10:01 Insulin Glargine (Lantus) 14 unit DAILY@08 SC ; Start 08/31/17 at 08:00 Diagnostic Test (Pha) (Accu-Chek) 1 ea 02 XX ; Start 08/31/17 at 02:00 Amlodipine Besylate (Norvasc) 5 mg DAILY PO ; Start 08/31/17 at 09:00 Miscellaneous Information 1 ea NOTE XX ; Start 08/30/17 at 14:30 Glucose (Glutose) 15 gm Q15M PRN PO DECREASED GLUCOSE; Start 08/30/17 at 14:30 Glucose (Glutose) 22.5 gm Q15M PRN PO DECREASED GLUCOSE; Start 08/30/17 at 14: 30 Dextrose (D50w Syringe) 25 ml Q15M PRN IV DECREASED GLUCOSE; Start 08/30/17 at 14:30 Dextrose (D50w Syringe) 50 ml Q15M PRN IV DECREASED GLUCOSE; Start 08/30/17 at 14:30 Glucagon (Glucagen) 1 mg Q15M PRN IM DECREASED GLUCOSE; Start 08/30/17 at 14: 30 Glucose (Glutose) 15 gm Q15M PRN BUCCAL DECREASED GLUCOSE; Start 08/30/17 at 14:30 Copies To: CC: QUIRINO GALVAN MD, VICTORIA Aug 30, 2017 16:14
[2017-08-30] MEDS ORDERED: BISACODYL (EC) 5 MG TAB PO ONE (16:30)
--- NOTE | 2017-08-30 17:18 | RADRPT ---
PROCEDURE: Renal US. CLINICAL INDICATION: Renal dysfunction. TECHNIQUE: Multiple sonographic images of the kidneys and urinary bladder were obtained. The imag es were reviewed on a PACS workstation. COMPARISON: CT scan of the abdomen and pelvis dated 01/21/2016. FINDINGS: The right kidney measures 10.2 cm. The left kidney measures 9.6 cm. There is no renal mass. There is no hydronephrosis. There is no renal calculus. Renal parenchymal thickness is normal bilaterally. Both kidneys are hyperechoic consistent with medical renal disease. The perirenal regions are normal with no fluid collection or mass. The urinary bladder is unremarkable. IMPRESSION: 1. Bilateral hyperechoic kidneys consistent with medical renal disease. 2. No hydronephrosis. 3. Otherwise unremarkable renal ultrasound. RPTAT: QQ .Edmar Holt MD, Date Time Electronically viewed and signed by .Edmar Holt MD, on 08/30/2017 17:18 .R/
[2017-08-30] MEDS: PANTOPRAZOLE 40 MG INJ IV SCH (17:28)
[2017-08-30] MEDS: SOD CHLORIDE 0.45% 1,000 ML IV SCH (17:28)
[2017-08-30] MEDS ORDERED: MAGNESIUM CITRATE 300 ML BTL PO ONE (17:30)
[2017-08-30] MEDS: INSULIN ASPART [NOVOLOG] 3 ML PEN SC SCH ×2 (18:05→21:00)
[2017-08-30] MEDS: SOD FERRIC GLUC COMPLX 125 MG in SOD CHLORIDE 0.9% 100 ML IVPB SCH (18:16)
[2017-08-30] MEDS ORDERED: POLYETHYLENE GLYCOL 3350 119 GM POWDER PO ONE (18:30)
[2017-08-30 20:00] VITALS: BP 164/74; RESP 19
[2017-08-30] MEDS ORDERED: BISACODYL (EC) 5 MG TAB PO PRN (20:00)
[2017-08-30] MEDS: LEVETIRACETAM 500 MG TAB PO SCH (21:53)
[2017-08-30] MEDS: ATORVASTATIN 10 MG TAB PO SCH (21:53)
[2017-08-30] MEDS: DOCUSATE SODIUM 100 MG CAP PO SCH (21:53)
[2017-08-30] MEDS: GABAPENTIN 100 MG CAP PO SCH (21:53)
[2017-08-31] VITALS (10 sets, daily range): BP systolic 93–157; BP diastolic 50–92; PULSE 69–70; RESP 13–20
[2017-08-31] MEDS ORDERED: ACCU-CHEK XX SCH (02:00)
[2017-08-31] MEDS: ACCU-CHEK XX SCH (02:00)
[2017-08-31] MEDS: PANTOPRAZOLE 40 MG INJ IV SCH ×2 (05:45→18:58)
[2017-08-31] MEDS ORDERED: POLYETHYLENE GLYCOL 3350 119 GM POWDER PO ONE (06:00)
[2017-08-31] MEDS: SOD CHLORIDE 0.45% 1,000 ML IV SCH ×2 (06:48→12:53)
[2017-08-31] MEDS: INSULIN ASPART [NOVOLOG] 3 ML PEN SC SCH ×4 (07:40→21:00)
[2017-08-31] MEDS ORDERED: BISACODYL (EC) 5 MG TAB PO ONE (08:00)
--- NOTE | 2017-08-31 08:01 | RADRPT ---
PROCEDURE: XR Abdomen. CLINICAL INDICATION: Abdomen pain. TECHNIQUE: AP supine abdomen x-ray. COMPARISON: CT scan of the abdomen and pelvis dated 01/21/2016. FINDINGS: The bowel gas pattern is normal with no evidence of obstruction. There is a plastic stent in the common bile duct. There are no abnormal calcifications overlying the urinary tracts. There are degenerative changes of the spine. IMPRESSION: 1. Common bile duct stent. 2. Degenerative changes of the spine. 3. Otherwise unremarkable study. RPTAT: QQ .Edmar Holt MD, MD Date Time Electronically viewed and signed by .Edmar Holt MD, MD on 08/31/2017 08:01 .R/
[2017-08-31] MEDS: INSULIN GLARGINE [LANtus] 3 ML PEN SC SCH (08:02)
[2017-08-31] MEDS: AMLODIPINE 5 MG TAB PO SCH (09:15)
[2017-08-31] MEDS: LEVETIRACETAM 500 MG TAB PO SCH ×2 (09:15→21:45)
[2017-08-31] MEDS: DOCUSATE SODIUM 100 MG CAP PO SCH ×2 (09:15→21:00)
[2017-08-31] MEDS: LOSARTAN 25 MG TAB PO SCH (09:15)
[2017-08-31] MEDS: GABAPENTIN 100 MG CAP PO SCH ×3 (09:16→21:45)
[2017-08-31] MEDS ORDERED: INSULIN REGULAR, HUMAN 100 UNIT/1 ML 3ML VIAL IV STA (09:20)
[2017-08-31] MEDS ORDERED: ALBUTEROL 0.083% (NEB) 2.5 MG/3 ML AMP HHN STA (09:20)
--- NOTE | 2017-08-31 09:29 | CONS ---
Date/Time of Note Date/Time of Note DATE: 08/31/17 TIME: 09:22 Assessment/Plan Assessment/Plan Chief Complaint/Hosp Course 72-year-old female with a past medical history of hypertension, hypercholesterolemia, type 2 diabetes, iron deficiency anemia,atherosclerosis, left AKA, Pancreatitis with status post ERCP with sphincterotomy and stent placement, who was sent by patient's primary care doctor for evaluation of anemia with rectal bleed/positive FOBT. pt give h/o positive FOBT but denies any BRBPR. Pt denies any previous PMHx of CKD, kidney stone and kidney cyst. In the emergency room, patient's hemoglobin was 8.1, hematocrit 26.6, potassium 5.6, BUN 44, and creatinine 2.12. Patient was given 30 g Kayexalate in the emergency room. pt also has severe iron deficiency with Iron saturation level 7. BP stable, afebrile Renal has been consulted for RODRICK, Metabolic acidosis and Hyperkalemia Problems: Additional Assessment/Plan 1. Non oliguric Acute kidney injury on possible CKD due to prerenal azotemi + ATN f 2. 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 Acute hyperkalemia due to RODRICK on CKD 4. Severe Iron deficiency anemia with possible FOBT Positive, pt also has contributing anemia of CKD 5. H/o Type II DM poorly controlled with HBA1c 8.9 6. H/o HTN 7. H/o PVD Plan: Pt has RODRICK on CKD- Today BUN/Cr improving but K 6.8,HCo3 20- pt is scheduled for endoscopy today, will give sodium bicarbonate 50 ml IV x 1 , Albuterol HHN neb x 1 and also give Insulin + dextrose for hyperkalemia, will order BMP stat after to follow up on K before endoscopy Ferrlecit 125mg IV daily x 5 days started for iron def anemia Renal US and Urine studies c/w low proteinuric CKD and medical renal disease continue 1/2 NS at 75 cc/hr Plan for endoscopy for GI bleedign work up today by GI will follow up Consultation Date/Type/Reason Admit Date/Time Aug 30, 2017 at 10:29 Initial Consult Date 08/30/17 Type of Consultation: NEPHROLOGY Referring Provider: JUSTIN CHANDLER 24 HR Interval Summary Free Text/Dictation plan for endoscopy today, BUn/Cr improving, K 6.8, HCo3 20 Hb 8.0, plan for endoscopy today Exam/Review of Systems Vital Signs Vitals Vital Signs Date Time Temp Pulse Resp B/P Pulse Ox O2 Delivery O2 Flow Rate FiO2 08/31/17 08:12 97.9 73 17 157/73 100 08/30/17 15:40 Room Air 08/30/17 09:51 2 Intake and Output 08/30/17 08/30/17 08/31/17 15:00 23:00 07:00 Intake Total 110 ml 400 ml Balance 110 ml 400 ml Exam Constitutional: alert Respiratory: clear to auscultation, diminished breath sounds, normal air movement Cardiovascular: nl pulses, regular rate and rhythm Gastrointestinal: firm, non-tender, soft Musculoskeletal: muscle tone, muscle weakness, nl extremities to inspection, nl gait and stance Extremities: normal pulses Neurological: BIOLOGICAL SCIENTIST II-XII intact, nl mental status, nl speech, nl strength Results Result Diagram: 08/31/17 0444 08/31/17 0444 Results 24 hrs Laboratory Tests Test 08/30/17 18:00 08/30/17 18:12 08/30/17 18:15 08/30/17 18:16 Urine Eosinophils % 0.2 Urine Random Creatinine 48.82 Urine Random Sodium 89 Urine Protein/Creatinine Ratio 2.02 Urine Total Protein 99.0 H Bedside Glucose 131 Sodium Level 145 H Potassium Level 5.0 Chloride Level 113 H Carbon Dioxide Level 22 Anion Gap 15 Blood Urea Nitrogen 38 H Creatinine 1.74 H Glucose Level 129 Calcium Level 8.6 Hemoglobin 7.7 L Hematocrit 25.3 L Magnesium Level 1.8 Test 08/30/17 21:48 08/31/17 04:44 08/31/17 07:38 Bedside Glucose 85 91 White Blood Count 10.0 Red Blood Count 3.12 L Hemoglobin 8.0 L Hematocrit 26.9 L Mean Corpuscular Volume 86.2 Mean Corpuscular Hemoglobin 25.6 L Mean Corpuscular Hemoglobin Concent 29.7 L Red Cell Distribution Width 13.7 Platelet Count 425 H Mean Platelet Volume 10.2 Neutrophils % 70.3 Lymphocytes % 21.6 Monocytes % 5.4 Eosinophils % 1.9 Basophils % 0.4 Nucleated Red Blood Cells % 0.0 Neutrophils # 7.1 Lymphocytes # 2.2 Monocytes # 0.5 Eosinophils # 0.2 Basophils # 0.0 Nucleated Red Blood Cells # 0.0 Sodium Level 145 H Potassium Level 6.8 *H Chloride Level 117 H Carbon Dioxide Level 20 L Anion Gap 15 Blood Urea Nitrogen 35 H Creatinine 1.67 H Glucose Level 113 Uric Acid 5.8 Calcium Level 9.0 Phosphorus Level 4.5 Magnesium Level 2.2 Total Bilirubin 0.0 L Direct Bilirubin 0.00 Indirect Bilirubin 0.0 Aspartate Amino Transf (AST/SGOT) 16 Alanine Aminotransferase (ALT/SGPT) 20 Alkaline Phosphatase 83 Creatine Kinase 33 Total Protein 7.2 Albumin 3.4 Globulin 3.80 H Albumin/Globulin Ratio 0.89 Medications Medications Current Medications Ondansetron HCl (Zofran Inj) 4 mg Q6H PRN IV NAUSEA AND/OR VOMITING; Start at 14:00 Acetaminophen (Tylenol Tab) 650 mg Q6H PRN PO PAIN LEVEL 1-3 OR FEVER; Start 08/30/17 at 14:00 Acetaminophen (Tylenol Supp) 650 mg Q6H PRN MS PAIN LEVEL 1-3 OR FEVER; Start 08/30/17 at 14:00 Morphine Sulfate (morphine) 2 mg Q4H PRN IV SEVERE PAIN LEVEL 7-10; Start at 14:00 Carvedilol (Coreg) 12.5 mg BID PO Last administered on 08/31/17 09:15; Admin Dose 12.5 MG; Start 08/30/17 at 21:00 Gabapentin (Neurontin) 100 mg TID PO Last administered on 08/31/17 09:16; Admin Dose 100 MG; Start 08/30/17 at 21:00 Levetiracetam (Keppra) 500 mg BID PO Last administered on 08/31/17 09:15; Admin Dose 500 MG; Start 08/30/17 at 21:00 Losartan Potassium (Cozaar) 25 mg DAILY PO Last administered on 08/31/17 09: 15; Admin Dose 25 MG; Start 08/31/17 at 09:00 Atorvastatin Calcium (Lipitor) 10 mg DAILY@21 PO Last administered on 21:53; Admin Dose 10 MG; Start 08/30/17 at 21:00 Pantoprazole (Protonix Iv) 40 mg BID@06,18 IV Last administered on 08/31/17 05:45; Admin Dose 40 MG; Start 08/30/17 at 18:00 Influenza Virus Vaccine (Fluzone) 0.5 ml ONCE ONCE IM* ; Start 08/31/17 at 10: 00; Stop 08/31/17 at 10:01 Insulin Glargine (Lantus) 14 unit DAILY@08 SC Last administered on 08/31/17 08:02; Admin Dose 14 UNIT; Start 08/31/17 at 08:00 Diagnostic Test (Pha) (Accu-Chek) 1 ea 02 XX ; Start 08/31/17 at 02:00 Amlodipine Besylate (Norvasc) 5 mg DAILY PO Last administered on 08/31/17 09: 15; Admin Dose 5 MG; Start 08/31/17 at 09:00 Miscellaneous Information 1 ea NOTE XX ; Start 08/30/17 at 14:30 Glucose (Glutose) 15 gm Q15M PRN PO DECREASED GLUCOSE; Start 08/30/17 at 14:30 Glucose (Glutose) 22.5 gm Q15M PRN PO DECREASED GLUCOSE; Start 08/30/17 at 14: 30 Dextrose (D50w Syringe) 25 ml Q15M PRN IV DECREASED GLUCOSE; Start 08/30/17 at 14:30 Dextrose (D50w Syringe) 50 ml Q15M PRN IV DECREASED GLUCOSE; Start 08/30/17 at 14:30 Glucagon (Glucagen) 1 mg Q15M PRN IM DECREASED GLUCOSE; Start 08/30/17 at 14: 30 Glucose 15 gm 15 gm Q15M PRN BUCCAL DECREASED GLUCOSE; Start 08/30/17 at 14:30 Sodium Chloride 1,000 ml @ 70 mls/hr [id number] IV Last administered on 17:28; Admin Dose 70 MLS/HR; Start 08/30/17 at 16:30 Ferric Sodium Gluconate Complex/ Sodium Chloride (Ferrlecit/NS) 110 ml @ 110 mls/hr Q24H IVPB Last administered on 08/30/17 18:16; Admin Dose 110 MLS/HR; Start 08/30/17 at 18:00; Stop 09/03/17 at 18:59 Docusate Sodium (Colace) 100 mg BID PO Last administered on 08/31/17 09:15; Admin Dose 100 MG; Start 08/30/17 at 21:00 Bisacodyl (Dulcolax) 5 mg DAILY PRN PO CONSTIPATION; Start 08/30/17 at 20:00 Sodium Bicarbonate (Na Bicarb 8.4% Syg) 50 ml ONCE ONCE IV ; Start 08/31/17 at 09:30; Stop 08/31/17 at 09:31; Status UNSHADI ALEGRE MD Aug 31, 2017 09:29
[2017-08-31] MEDS ORDERED: NA BICARBONATE 8.4% 50 ML SYG IV ONE (09:30)
[2017-08-31] MEDS ORDERED: DEXTROSE 50% 50 ML SYRINGE IV ONE (09:30)
[2017-08-31] MEDS ORDERED: INFLUENZA VIRUS VACCINE 0.5 ML SYG IM* ONE (10:00)
[2017-08-31] MEDS ORDERED: SODIUM BICARBONATE (IV ADD) 50 ML IV SCH (11:00)
--- NOTE | 2017-08-31 12:22 | PN ---
Date/Time of Note Date/Time of Note DATE: 08/31/17 TIME: 12:22 Assessment/Plan VTE Prophylaxis VTE Prophylaxis Intervention: ambulation Lines/Catheters IV C[facility]ter Type (from [facility] Peripheral IV Urinary Cath still in place: No Assessment/Plan Chief Complaint/Hosp Course 72-year-old female, with a family hx of colon cancer (mother),who was sent by primary care doctor to the emergency room for evaluation of anemia and positive FOBT done as outpatient. 1.Mild Anemia with iron deficiency: Differential diagnoses includes: decreased production, sequestration, destruction/loss. At this time most concerning is occult GI blood loss vs colon malignancy given the patients reported guaiac positive stools (done outpt) and hypochromic indices with strong family hx. Patient also on iron/aspirin at home. Plan: -For C-scope today with . -N.p.o. except medications, PPI prophylaxis, IV ironx 3 doses-then oral. -F/u FOBT Follow serial HCT (check q12h) 2. RODRICK on likely CKD. Note patient with long-standing hx of DM put her at risk of DM nephropathy. -Nephrology on board. -Monitor renal fxn closely-Renally dose meds 3.Metabolic acidosis/Hyperkalemia with RODRICK/Possible GI bleed. -Defer nephro for hyperkalemia treatment. -Monitor K level 4. Essential hypertension -Continue home medications 5. Hypercholesterolemia. -Continue statin. 6. Type 2 diabetes. A1C 8.9. - Accu-Cheks/ISS/Lantus based on weight-titrate as indicated 7. Diabetic neuropathy. -Continue gabapentin 7. Diabetic foot ulcer, right. Chronic - wound care protocol. 9. Peripheral vascular disease, status post left AKA. -Hold aspirin secondary to GI bleed. 10. Constipation -Stool softeners/ PRN Laxatives. 11. Hx biliary Pancreatitis, status post ERCP with sphincterotomy and stent placement. -Defer sx for further recs GI Prophylaxis: PPIs F/u with GI/nephro recs. Patient was seen in collaboration with . Problems: Subjective 24 Hr Interval Summary Free Text/Dictation No reported bleeding episodes., Exam/Review of Systems Vital Signs Vitals Vital Signs Date Time Temp Pulse Resp B/P Pulse Ox O2 Delivery O2 Flow Rate FiO2 08/31/17 10:56 76 20 94 21 10/27/17 08:12 97.9 157/73 08/30/17 15:40 Room Air 08/30/17 09:51 2 Intake and Output 08/30/17 08/30/17 08/31/17 15:00 23:00 07:00 Intake Total 110 ml 400 ml Balance 110 ml 400 ml Exam General: Well developed,adequately built female, not in any acute distress . HEENT: Normocephalic, Atraumatic, No laceration or hematoma; Eyes: PEERL, Conjunctiva clear, Anicteric sclera Neck: Supple without any lymphadenopathy, nontender, no JVD, no carotid bruits, trachea midline, no thyromegaly Cardiac: S1, S2 auscultated, regular rhythm and rate, no mumurs or gallop Pulmonary: Normal respiratory effort. Chest clear to auscultation bilaterally, no adventitious breath sounds GI: Abdomen normal to inspection. Soft, non tender, non- distended, no masses, no rebound tenderness or guarding. Bowel sounds active on all four quadrants Genitourinary: With some dysuria. No hematuria. Extremities: Left AKA. No cyanosis, clubbing, or edema. Pulses [2+] bilaterally. Full ROM on all THREE extremities. No focal weakness appreciated. Neurologic: Alert to person, place, time, and situation. Affect appropriate, intact sensation. Skin: Clean,dry, and intact. No ecchymosis, no rashes, or lesions Results Result Diagram: 08/31/17 0444 08/31/17 1014 Results 24 hrs Laboratory Tests Test 08/30/17 18:00 08/30/17 18:12 08/30/17 18:15 08/30/17 18:16 Urine Eosinophils % 0.2 Urine Random Creatinine 48.82 Urine Random Sodium 89 Urine Protein/Creatinine Ratio 2.02 Urine Total Protein 99.0 H Bedside Glucose 131 Sodium Level 145 H Potassium Level 5.0 Chloride Level 113 H Carbon Dioxide Level 22 Anion Gap 15 Blood Urea Nitrogen 38 H Creatinine 1.74 H Glucose Level 129 Calcium Level 8.6 Hemoglobin 7.7 L Hematocrit 25.3 L Magnesium Level 1.8 Test 08/30/17 21:48 08/31/17 04:44 08/31/17 07:38 08/31/17 10:14 Bedside Glucose 85 91 White Blood Count 10.0 Red Blood Count 3.12 L Hemoglobin 8.0 L Hematocrit 26.9 L Mean Corpuscular Volume 86.2 Mean Corpuscular Hemoglobin 25.6 L Mean Corpuscular Hemoglobin Concent 29.7 L Red Cell Distribution Width 13.7 Platelet Count 425 H Mean Platelet Volume 10.2 Neutrophils % 70.3 Lymphocytes % 21.6 Monocytes % 5.4 Eosinophils % 1.9 Basophils % 0.4 Nucleated Red Blood Cells % 0.0 Neutrophils # 7.1 Lymphocytes # 2.2 Monocytes # 0.5 Eosinophils # 0.2 Basophils # 0.0 Nucleated Red Blood Cells # 0.0 Sodium Level 145 H 143 Potassium Level 6.8 *H 6.1 *H Chloride Level 117 H 115 H Carbon Dioxide Level 20 L 20 L Anion Gap 15 14 Blood Urea Nitrogen 35 H 32 H Creatinine 1.67 H 1.54 H Glucose Level 113 176 Uric Acid 5.8 Calcium Level 9.0 9.3 Phosphorus Level 4.5 Magnesium Level 2.2 Total Bilirubin 0.0 L Direct Bilirubin 0.00 Indirect Bilirubin 0.0 Aspartate Amino Transf (AST/SGOT) 16 Alanine Aminotransferase (ALT/SGPT) 20 Alkaline Phosphatase 83 Creatine Kinase 33 Total Protein 7.2 Albumin 3.4 Globulin 3.80 H Albumin/Globulin Ratio 0.89 Test 08/31/17 12:17 Bedside Glucose 195 Medications Medications Current Medications Ondansetron HCl (Zofran Inj) 4 mg Q6H PRN IV NAUSEA AND/OR VOMITING; Start at 14:00 Acetaminophen (Tylenol Tab) 650 mg Q6H PRN PO PAIN LEVEL 1-3 OR FEVER; Start 08/30/17 at 14:00 Acetaminophen (Tylenol Supp) 650 mg Q6H PRN [place] PAIN LEVEL 1-3 OR FEVER; Start 08/30/17 at 14:00 Morphine Sulfate (morphine) 2 mg Q4H PRN IV SEVERE PAIN LEVEL 7-10; Start at 14:00 Carvedilol (Coreg) 12.5 mg BID PO Last administered on 08/31/17 09:15; Admin Dose 12.5 MG; Start 08/30/17 at 21:00 Gabapentin (Neurontin) 100 mg TID PO Last administered on 08/31/17 09:16; Admin Dose 100 MG; Start 08/30/17 at 21:00 Levetiracetam (Keppra) 500 mg BID PO Last administered on 08/31/17 09:15; Admin Dose 500 MG; Start 08/30/17 at 21:00 Losartan Potassium (Cozaar) 25 mg DAILY PO Last administered on 08/31/17 09: 15; Admin Dose 25 MG; Start 08/31/17 at 09:00 Atorvastatin Calcium (Lipitor) 10 mg DAILY@21 PO Last administered on 21:53; Admin Dose 10 MG; Start 08/30/17 at 21:00 Pantoprazole (Protonix Iv) 40 mg BID@06,18 IV Last administered on 08/31/17 05:45; Admin Dose 40 MG; Start 08/30/17 at 18:00 Insulin Glargine (Lantus) 14 unit DAILY@08 SC Last administered on 08/31/17 08:02; Admin Dose 14 UNIT; Start 08/31/17 at 08:00 Diagnostic Test (Pha) (Accu-Chek) 1 ea 02 XX ; Start 08/31/17 at 02:00 Amlodipine Besylate (Norvasc) 5 mg DAILY PO Last administered on 08/31/17 09: 15; Admin Dose 5 MG; Start 08/31/17 at 09:00 Miscellaneous Information 1 ea NOTE XX ; Start 08/30/17 at 14:30 Glucose (Glutose) 15 gm Q15M PRN PO DECREASED GLUCOSE; Start 08/30/17 at 14:30 Glucose (Glutose) 22.5 gm Q15M PRN PO DECREASED GLUCOSE; Start 08/30/17 at 14: 30 Dextrose (D50w Syringe) 25 ml Q15M PRN IV DECREASED GLUCOSE; Start 08/30/17 at 14:30 Dextrose (D50w Syringe) 50 ml Q15M PRN IV DECREASED GLUCOSE; Start 08/30/17 at 14:30 Glucagon (Glucagen) 1 mg Q15M PRN IM DECREASED GLUCOSE; Start 08/30/17 at 14: 30 Glucose 15 gm 15 gm Q15M PRN BUCCAL DECREASED GLUCOSE; Start 08/30/17 at 14:30 Sodium Chloride 1,000 ml @ 70 mls/hr [id number] IV Last administered on 17:28; Admin Dose 70 MLS/HR; Start 08/30/17 at 16:30 Ferric Sodium Gluconate Complex/ Sodium Chloride (Ferrlecit/NS) 110 ml @ 110 mls/hr Q24H IVPB Last administered on 08/30/17 18:16; Admin Dose 110 MLS/HR; Start 08/30/17 at 18:00; Stop 09/03/17 at 18:59 Docusate Sodium (Colace) 100 mg BID PO Last administered on 08/31/17 09:15; Admin Dose 100 MG; Start 08/30/17 at 21:00 Bisacodyl (Dulcolax) 5 mg DAILY PRN PO CONSTIPATION; Start 08/30/17 at 20:00 BERNARD PYLE NP Aug 31, 2017 12:22
--- NOTE | 2017-08-31 13:11 | PN ---
Date/Time of Note Date/Time of Note DATE: 08/31/17 TIME: 13:08 Assessment/Plan VTE Prophylaxis VTE Prophylaxis Intervention: SCD's Lines/Catheters IV C[facility]ter Type (from [facility]): Peripheral IV Urinary Cath still in place: No Assessment/Plan Chief Complaint/Hosp Course Summary Assessment and Plan: Assessment: Anemia-hypochromic Positive FOBT (outpatient) Plan: Keep n.p.o. Colonoscopy today Will need ERCP for stent removal at some point near future Patient seen in collaboration with Subjective: Course reviewed with nursing staff Patient interviewed and examined All labs, imaging and other results reviewed The patient feeling well family at bedside, she remains n.p.o. plans for colonoscopy later today PHYSICAL EXAMINATION: GENERAL: Well developed, well nourished, alert & oriented x 3, in no acute distress SKIN: No lesions, no stigmata chronic liver disease, no evidence of bleeding diathesis LYMPHATIC: No palpable lymphadenopathy. HEAD: Normocephalic, atraumatic, no tenderness. EYES: Pupils equal reactive to light and accommodation, full extraocular movements, sclera clear, non-icteric, no discharge. EARS/NOSE AND THROAT: Ears normal, nose normal, oropharynx normal, oral membranes well hydrated without lesions. NECK: Supple, no masses, thyroid normal, JVP within normal limits, carotids normal without bruits. CHEST: Inspection within normal limits. CARDIOVASCULAR: Heart: Regular rate and rhythm, no murmurs, gallops or rubs. Peripheral pulses present within normal limits, no cyanosis, clubbing or edemas. No pulsatile abdominal mass RESPIRATORY: Lungs clear to auscultation and percussion, no wheezing, no rubs GASTROINTESTINAL AND LIVER: Abdomen: Soft, non tenderness, non-distended, no hernias, no masses, no organomegaly, no ascites, no guarding, no rebound tenderness, normoactive bowel sounds. Rectal: Deferred. GENITOURINARY: Female genitalia within normal limits. EXTREMITIES: No cyanosis, clubbing or edema. Problems: Exam/Review of Systems Vital Signs Vitals Vital Signs Date Time Temp Pulse Resp B/P Pulse Ox O2 Delivery O2 Flow Rate FiO2 08/31/17 10:56 76 20 94 21 08/31/17 08:12 97.9 157/73 08/30/17 15:40 Room Air 08/30/17 09:51 2 Intake and Output 08/30/17 08/30/17 08/31/17 15:00 23:00 07:00 Intake Total 110 ml 400 ml Balance 110 ml 400 ml Results Result Diagram: 08/31/17 0444 08/31/17 1014 Results 24 hrs Laboratory Tests Test 08/30/17 18:00 08/30/17 18:12 08/30/17 18:15 08/30/17 18:16 Urine Eosinophils % 0.2 Urine Random Creatinine 48.82 Urine Random Sodium 89 Urine Protein/Creatinine Ratio 2.02 Urine Total Protein 99.0 H Bedside Glucose 131 Sodium Level 145 H Potassium Level 5.0 Chloride Level 113 H Carbon Dioxide Level 22 Anion Gap 15 Blood Urea Nitrogen 38 H Creatinine 1.74 H Glucose Level 129 Calcium Level 8.6 Hemoglobin 7.7 L Hematocrit 25.3 L Magnesium Level 1.8 Test 08/30/17 21:48 08/31/17 04:44 08/31/17 07:38 08/31/17 10:14 Bedside Glucose 85 91 White Blood Count 10.0 Red Blood Count 3.12 L Hemoglobin 8.0 L Hematocrit 26.9 L Mean Corpuscular Volume 86.2 Mean Corpuscular Hemoglobin 25.6 L Mean Corpuscular Hemoglobin Concent 29.7 L Red Cell Distribution Width 13.7 Platelet Count 425 H Mean Platelet Volume 10.2 Neutrophils % 70.3 Lymphocytes % 21.6 Monocytes % 5.4 Eosinophils % 1.9 Basophils % 0.4 Nucleated Red Blood Cells % 0.0 Neutrophils # 7.1 Lymphocytes # 2.2 Monocytes # 0.5 Eosinophils # 0.2 Basophils # 0.0 Nucleated Red Blood Cells # 0.0 Sodium Level 145 H 143 Potassium Level 6.8 *H 6.1 *H Chloride Level 117 H 115 H Carbon Dioxide Level 20 L 20 L Anion Gap 15 14 Blood Urea Nitrogen 35 H 32 H Creatinine 1.67 H 1.54 H Glucose Level 113 176 Uric Acid 5.8 Calcium Level 9.0 9.3 Phosphorus Level 4.5 Magnesium Level 2.2 Total Bilirubin 0.0 L Direct Bilirubin 0.00 Indirect Bilirubin 0.0 Aspartate Amino Transf (AST/SGOT) 16 Alanine Aminotransferase (ALT/SGPT) 20 Alkaline Phosphatase 83 Creatine Kinase 33 Total Protein 7.2 Albumin 3.4 Globulin 3.80 H Albumin/Globulin Ratio 0.89 Test 08/31/17 12:17 Bedside Glucose 195 Medications Medications Current Medications Ondansetron HCl (Zofran Inj) 4 mg Q6H PRN IV NAUSEA AND/OR VOMITING; Start at 14:00 Acetaminophen (Tylenol Tab) 650 mg Q6H PRN PO PAIN LEVEL 1-3 OR FEVER; Start 08/30/17 at 14:00 Acetaminophen (Tylenol Supp) 650 mg Q6H PRN [place] PAIN LEVEL 1-3 OR FEVER; Start 08/30/17 at 14:00 Morphine Sulfate (morphine) 2 mg Q4H PRN IV SEVERE PAIN LEVEL 7-10; Start at 14:00 Carvedilol (Coreg) 12.5 mg BID PO Last administered on 08/31/17 09:15; Admin Dose 12.5 MG; Start 08/30/17 at 21:00 Gabapentin (Neurontin) 100 mg TID PO Last administered on 08/31/17 09:16; Admin Dose 100 MG; Start 08/30/17 at 21:00 Levetiracetam (Keppra) 500 mg BID PO Last administered on 08/31/17 09:15; Admin Dose 500 MG; Start 08/30/17 at 21:00 Losartan Potassium (Cozaar) 25 mg DAILY PO Last administered on 08/31/17 09: 15; Admin Dose 25 MG; Start 08/31/17 at 09:00 Atorvastatin Calcium (Lipitor) 10 mg DAILY@21 PO Last administered on 21:53; Admin Dose 10 MG; Start 08/30/17 at 21:00 Pantoprazole (Protonix Iv) 40 mg BID@06,18 IV Last administered on 08/31/17 05:45; Admin Dose 40 MG; Start 08/30/17 at 18:00 Insulin Glargine (Lantus) 14 unit DAILY@08 SC Last administered on 08/31/17 08:02; Admin Dose 14 UNIT; Start 08/31/17 at 08:00 Diagnostic Test (Pha) (Accu-Chek) 1 ea 02 XX ; Start 08/31/17 at 02:00 Amlodipine Besylate (Norvasc) 5 mg DAILY PO Last administered on 08/31/17 09: 15; Admin Dose 5 MG; Start 08/31/17 at 09:00 Miscellaneous Information 1 ea NOTE XX ; Start 08/30/17 at 14:30 Glucose (Glutose) 15 gm Q15M PRN PO DECREASED GLUCOSE; Start 08/30/17 at 14:30 Glucose (Glutose) 22.5 gm Q15M PRN PO DECREASED GLUCOSE; Start 08/30/17 at 14: 30 Dextrose (D50w Syringe) 25 ml Q15M PRN IV DECREASED GLUCOSE; Start 08/30/17 at 14:30 Dextrose (D50w Syringe) 50 ml Q15M PRN IV DECREASED GLUCOSE; Start 08/30/17 at 14:30 Glucagon (Glucagen) 1 mg Q15M PRN IM DECREASED GLUCOSE; Start 08/30/17 at 14: 30 Glucose 15 gm 15 gm Q15M PRN BUCCAL DECREASED GLUCOSE; Start 08/30/17 at 14:30 Sodium Chloride 1,000 ml @ 70 mls/hr [id number] IV Last administered on 12:53; Admin Dose 70 MLS/HR; Start 08/30/17 at 16:30 Ferric Sodium Gluconate Complex/ Sodium Chloride (Ferrlecit/NS) 110 ml @ 110 mls/hr Q24H IVPB Last administered on 08/30/17 18:16; Admin Dose 110 MLS/HR; Start 08/30/17 at 18:00; Stop 09/03/17 at 18:59 Docusate Sodium (Colace) 100 mg BID PO Last administered on 08/31/17 09:15; Admin Dose 100 MG; Start 08/30/17 at 21:00 Bisacodyl (Dulcolax) 5 mg DAILY PRN PO CONSTIPATION; Start 08/30/17 at 20:00 EFRAIN CADNEA Aug 31, 2017 13:11
--- NOTE | 2017-08-31 17:33 | HPN ---
Date/Time of Note Date/Time of Note DATE: 08/31/17 TIME: 17:33 Interval H&P Admission Note Pt. seen H&P reviewed: No system changes QUIRINO GALVAN MD Aug 31, 2017 17:33
[2017-08-31] MEDS ORDERED: LIDOCAINE 2% (SDV) 5 ML INJ ONE (17:34)
[2017-08-31] MEDS ORDERED: PROPOFOL 40 ML ONE (17:34)
--- NOTE | 2017-08-31 18:07 | OPPN ---
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 Multiple biopsies obtained. Localization tattoo applied. Moderate-sized internal hemorrhoids Otherwise normal colonoscopy to cecum Plan: Review pathology as soon as available CT abdomen and pelvis with contrast Surgical consult Patient has a plastic biliary stent placement January 2016 which is overdue for removal or exchange. They should be considered prior to surgical intervention. We will tentatively plan Sunday ERCP with stent removal/exchange Procedure Performed: Colonoscopy (With biopsies on localization tattoo) Surgeon QUIRINO GALVAN MD See signature line Community Development Director none Anesthesia Type: MAC Anesthesiologist: ELISEO LOMELI Tourniquet Time none EBL none Transfusion required none Biopsy 1: Mid ascending colon mass Grafts/Implants none Tubes/Drains none Complication(s) none Disposition: PACU Procedure Description After informed consent, with the patient/relatives understanding the procedure, its indications and potential risks and complications, including but not limited to: Allergic reaction, bleeding, perforation, infection, and after all pertinent questions were answered to the patient's satisfaction, the patient/ relatives signed the witnessed informed consent. Following this, premedication was administered slowly IV push under careful cardiovascular and respiratory monitoring with pulse OXIMETRY, automatic blood pressure, and reeling machine setup operator. Once the sedative effect was achieved, the patient was placed in the left lateral decubitus position, digital rectal examination was performed. The colonoscope was then introduced and advanced under visual control throughout all segments of the colon including: the rectum, sigmoid, descending colon, splenic flexure, transverse colon, hepatic flexure, ascending colon and finally reaching the cecum which was clearly identified by transillumination, finger indentation and the ileocecal valve. Careful examination of the mucosa of the lower gastrointestinal tract both on insertion as well as withdrawal of the instrument disclosed the following findings: PREPARATION QUALITY: [Adequate], RECTAL EXAM: The anorectal area was visualized examined and digital rectal examination performed with the following findings: No evidence of perirectal disease, no masses. COLONIC MUCOSA: The mucosa of all segments of the colon was carefully examined and showed the following findings: There is a large semicircumferential mass measuring at least 5 cm with clearly malignant appearance in the mid descending colon. Multiple biopsies were obtained. Localization tattoo was applied. Moderate-sized internal hemorrhoids are noted. Otherwise the examined mucosa appears within normal limits. There is no evidence of inflammatory changes, diverticular formation, polyps or other neoplasms, vascular malformation, or any other abnormality. The instrument was then withdrawn, the patient tolerated the procedure well and was transferred out of the Endoscopy Suite awake and in good condition to continue recovery under observation. Copies To: CC: QUIRINO GALVAN MD, MORDO MD Aug 31, 2017 18:07
[2017-08-31] MEDS ORDERED: BARIUM SULF 2% 450 ML BTL (BERRY SMOOTHIE) PO ONE (18:30)
[2017-08-31] MEDS: SOD FERRIC GLUC COMPLX 125 MG in SOD CHLORIDE 0.9% 100 ML IVPB SCH (18:58)
[2017-08-31] MEDS: ATORVASTATIN 10 MG TAB PO SCH (21:00)
[2017-09-01] MEDS: ACCU-CHEK XX SCH (02:00)
[2017-09-01 03:06] VITALS: BP 129/58; RESP 18
[2017-09-01] MEDS: PANTOPRAZOLE 40 MG INJ IV SCH ×2 (05:54→18:22)
[2017-09-01 07:39] VITALS: BP 149/67; RESP 18
[2017-09-01] MEDS: INSULIN ASPART [NOVOLOG] 3 ML PEN SC SCH ×4 (08:00→20:55)
[2017-09-01] MEDS: GABAPENTIN 100 MG CAP PO SCH ×3 (09:00→20:57)
[2017-09-01] MEDS: AMLODIPINE 5 MG TAB PO SCH ×2 (09:00→11:00)
[2017-09-01] MEDS: DOCUSATE SODIUM 100 MG CAP PO SCH ×2 (09:00→20:55)
[2017-09-01] MEDS: LOSARTAN 25 MG TAB PO SCH ×2 (09:00→11:00)
[2017-09-01] MEDS: LEVETIRACETAM 500 MG TAB PO SCH ×2 (09:00→20:57)
[2017-09-01] MEDS: INSULIN GLARGINE [LANtus] 3 ML PEN SC SCH (09:37)
[2017-09-01] MEDS: SOD CHLORIDE 0.45% 1,000 ML IV SCH (11:24)
--- NOTE | 2017-09-01 12:38 | CONS ---
Date/Time of Note Date/Time of Note DATE: 09/01/17 TIME: 12:32 Assessment/Plan Assessment/Plan Additional Assessment/Plan 72-year-old female with a past medical history of hypertension, hypercholesterolemia, type 2 diabetes, iron deficiency anemia,atherosclerosis, left AKA, Pancreatitis with status post ERCP with sphincterotomy and stent placement, who was sent by patient's primary care doctor for evaluation of anemia with rectal bleed/positive FOBT. Renal has been consulted for RODRICK, Metabolic acidosis and Hyperkalemia Additional Assessment/Plan 1. Non oliguric Acute kidney injury on possible CKD due to prerenal azotemi + ATN Bun/cr 28/11.44- trending down - CT abdomen/pelvis today- 2. 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 Acute hyperkalemia due to RODRICK on CKD- resolved 4. Severe Iron deficiency anemia with possible FOBT Positive, pt also has contributing anemia of CKD - PER GI -getting PRBC 1 unit transfusion 5. H/o Type II DM poorly controlled with HBA1c 8.9 6. H/o HTN 7. 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 -continue 1/2 NS at 75 cc/hr -Plan for endoscopy for GI bleeding work up today by GI -will follow up - Plan of care marianne Shearer/staff Consultation Date/Type/Reason Admit Date/Time Aug 30, 2017 at 10:29 Initial Consult Date 08/30/17 Type of Consultation: NEPHROLOGY Referring Provider: JUSTIN CHANDLER 24 HR Interval Summary Free Text/Dictation getting blood transfusion, denies any complaints, family at bed side- All Qs answered, dw staff Constitutional: other (bllod teransfusion), requiring IVF Detailed Summary Respiratory: no complaints Cardiovascular: no complaints Gastrointestinal: no complaints Genitourinary: no complaints Musculoskeletal: no complaints Exam/Review of Systems Vital Signs Vitals Vital Signs Date Time Temp Pulse Resp B/P Pulse Ox O2 Delivery O2 Flow Rate FiO2 09/01/17 07:39 98.5 77 18 149/67 99 08/31/17 18:25 Room Air 08/31/17 10:56 21 08/30/17 09:51 2 Intake and Output 08/31/17 08/31/17 09/01/17 15:00 23:00 07:00 Intake Total 650 ml 710 ml 870 ml Balance 650 ml 710 ml 870 ml Exam Constitutional: alert, oriented, well developed Respiratory: diminished breath sounds, normal air movement Cardiovascular: nl pulses, other (s1s2) Gastrointestinal: soft Musculoskeletal: nl extremities to inspection Neurological: nl mental status, nl speech Results Result Diagram: 09/01/174 09/01/17423 Results 24 hrs Laboratory Tests Test 08/31/17 15:49 08/31/17 16:01 08/31/17 16:16 08/31/17 17:25 Bedside Glucose 62 L 270 H 234 H Hemoglobin 7.9 L Hematocrit 25.6 L Test 08/31/17 18:28 08/31/17 21:43 09/01/17 04:24 09/01/17 07:59 Bedside Glucose 159 185 97 White Blood Count 8.2 Red Blood Count 2.93 L Hemoglobin 7.6 L Hematocrit 25.1 L Mean Corpuscular Volume 85.7 Mean Corpuscular Hemoglobin 25.9 L Mean Corpuscular Hemoglobin Concent 30.3 L Red Cell Distribution Width 13.8 Platelet Count 390 Mean Platelet Volume 10.0 Neutrophils % 64.8 Lymphocytes % 24.5 Monocytes % 7.7 Eosinophils % 2.2 Basophils % 0.4 Nucleated Red Blood Cells % 0.0 Neutrophils # 5.3 Lymphocytes # 2.0 Monocytes # 0.6 Eosinophils # 0.2 Basophils # 0.0 Nucleated Red Blood Cells # 0.0 Prothrombin Time 13.2 Prothrombin Time Ratio 1.0 INR International Normalized Ratio 1.00 Activated Partial Thromboplast Time 40.1 H Sodium Level 145 H Potassium Level 4.7 Chloride Level 114 H Carbon Dioxide Level 24 Anion Gap 12 Blood Urea Nitrogen 24 H Creatinine 1.44 H Glucose Level 98 # Calcium Level 8.6 Magnesium Level 2.0 Total Bilirubin 0.1 L Direct Bilirubin 0.00 Indirect Bilirubin 0.1 Aspartate Amino Transf (AST/SGOT) 11 L Alanine Aminotransferase (ALT/SGPT) 18 Alkaline Phosphatase 80 Total Protein 6.6 Albumin 3.0 L Globulin 3.60 H Albumin/Globulin Ratio 0.83 Carcinoembryonic Antigen 5.7 H Test 09/01/17 09:36 09/01/17 11:48 Bedside Glucose 104 91 Medications Medications Current Medications Ondansetron HCl (Zofran Inj) 4 mg Q6H PRN IV NAUSEA AND/OR VOMITING; Start at 14:00 Acetaminophen (Tylenol Tab) 650 mg Q6H PRN PO PAIN LEVEL 1-3 OR FEVER; Start 08/30/17 at 14:00 Acetaminophen (Tylenol Supp) 650 mg Q6H PRN [place] PAIN LEVEL 1-3 OR FEVER; Start 08/30/17 at 14:00 Morphine Sulfate (morphine) 2 mg Q4H PRN IV SEVERE PAIN LEVEL 7-10; Start at 14:00 Carvedilol (Coreg) 12.5 mg BID PO Last administered on 09/01/17 11:01; Admin Dose 12.5 MG; Start 08/30/17 at 21:00 Gabapentin (Neurontin) 100 mg TID PO Last administered on 08/31/17 21:45; Admin Dose 100 MG; Start 08/30/17 at 21:00 Levetiracetam (Keppra) 500 mg BID PO Last administered on 08/31/17 21:45; Admin Dose 500 MG; Start 08/30/17 at 21:00 Losartan Potassium (Cozaar) 25 mg DAILY PO Last administered on 09/01/17 11: 00; Admin Dose 25 MG; Start 08/31/17 at 09:00 Atorvastatin Calcium (Lipitor) 10 mg DAILY@21 PO Last administered on 21:53; Admin Dose 10 MG; Start 08/30/17 at 21:00 Pantoprazole (Protonix Iv) 40 mg BID@06,18 IV Last administered on 09/01/17 05:54; Admin Dose 40 MG; Start 08/30/17 at 18:00 Insulin Glargine (Lantus) 14 unit DAILY@08 SC Last administered on 09/01/17 09:37; Admin Dose 14 UNIT; Start 08/31/17 at 08:00 Diagnostic Test (Pha) (Accu-Chek) 1 ea 02 XX ; Start 08/31/17 at 02:00 Amlodipine Besylate (Norvasc) 5 mg DAILY PO Last administered on 09/01/17 11: 00; Admin Dose 5 MG; Start 08/31/17 at 09:00 Miscellaneous Information 1 ea NOTE XX ; Start 08/30/17 at 14:30 Glucose (Glutose) 15 gm Q15M PRN PO DECREASED GLUCOSE; Start 08/30/17 at 14:30 Glucose (Glutose) 22.5 gm Q15M PRN PO DECREASED GLUCOSE; Start 08/30/17 at 14: 30 Dextrose (D50w Syringe) 25 ml Q15M PRN IV DECREASED GLUCOSE; Start 08/30/17 at 14:30 Dextrose (D50w Syringe) 50 ml Q15M PRN IV DECREASED GLUCOSE Last administered on 08/31/17 15:51; Admin Dose 50 ML; Start 08/30/17 at 14:30 Glucagon (Glucagen) 1 mg Q15M PRN IM DECREASED GLUCOSE; Start 08/30/17 at 14: 30 Glucose 15 gm 15 gm Q15M PRN BUCCAL DECREASED GLUCOSE; Start 08/30/17 at 14:30 Sodium Chloride 1,000 ml @ 70 mls/hr [id number] IV Last administered on 12:53; Admin Dose 70 MLS/HR; Start 08/30/17 at 16:30 Ferric Sodium Gluconate Complex/ Sodium Chloride (Ferrlecit/NS) 110 ml @ 110 mls/hr Q24H IVPB Last administered on 08/31/17 18:58; Admin Dose 110 MLS/HR; Start 08/30/17 at 18:00; Stop 09/03/17 at 18:59 Docusate Sodium (Colace) 100 mg BID PO Last administered on 08/31/17 09:15; Admin Dose 100 MG; Start 08/30/17 at 21:00 Bisacodyl (Dulcolax) 5 mg DAILY PRN PO CONSTIPATION; Start 08/30/17 at 20:00 LIANE CRAIG Sep 01, 2017 12:38
--- NOTE | 2017-09-01 12:55 | PN ---
Date/Time of Note Date/Time of Note DATE: 09/01/17 TIME: 12:50 Assessment/Plan VTE Prophylaxis VTE Prophylaxis Intervention: SCD's Lines/Catheters [facility] Urinary Cath still in place: No Assessment/Plan Problems: (1) History of acute pancreatitis Status: Resolved Comment: This is resolved. The patient does have a biliary stent was placed in from what I can determine for the patient she did know that this should be taken out. Is scheduled for feeling dealt with in 48 hours (2) Hyperlipidemia Status: Chronic Comment: Maintain statin therapy for the moment Qualifiers: Hyperlipidemia type: pure hypercholesterolemia Qualified Code: E78.00 - Pure hypercholesterolemia (3) Essential hypertension Status: Chronic Comment: Adequate control at the present time. (4) Diabetes mellitus type 2 in nonobese Status: Chronic Comment: She has multiple complications of this including peripheral vascular disease and chronic kidney disease. The present time her blood sugar control is adequate. Given the history of pancreatitis I would avoid the use of DPP 4 inhibitor drugs and GLP-1 drugs. (5) Colonic mass Status: Acute Comment: Final pathology reports are pending at this time however I have a bad feeling about this. Patient scheduled for CT scan today (6) Pancreatitis due to common bile duct stone Status: Resolved Comment: Noted as above (7) History of biliary duct stent placement Status: Chronic Comment: For removal in 48 hours (8) Chronic kidney disease Status: Acute Comment: Noted. Medication dosage adjustment as appropriate. Qualifiers: Chronic kidney disease stage: stage 3 (moderate) Qualified Code: N18.3 - Stage 3 chronic kidney disease (9) Lower GI bleed Status: Acute Comment: Patient is receiving 1 unit of blood transfusion as per GI. In addition because the iron deficiency anemia the receiving IV iron. Subjective 24 Hr Interval Summary Free Text/Dictation Charming female lying in bed. She reports no abdominal pain. Constitutional: no complaints Respiratory: no complaints Cardiovascular: no complaints Gastrointestinal: no complaints Genitourinary: no complaints Musculoskeletal: no complaints Exam/Review of Systems Vital Signs Vitals Vital Signs Date Time Temp Pulse Resp B/P Pulse Ox O2 Delivery O2 Flow Rate FiO2 09/01/17 07:39 98.5 77 18 149/67 99 08/31/17 18:25 Room Air 08/31/17 10:56 21 08/30/17 09:51 2 Intake and Output 08/31/17 08/31/17 09/01/17 15:00 23:00 07:00 Intake Total 650 ml 710 ml 870 ml Balance 650 ml 710 ml 870 ml Exam Constitutional: alert, oriented Neck: non-tender, supple Respiratory: clear to auscultation, normal air movement Cardiovascular: nl pulses, regular rate and rhythm Gastrointestinal: nl liver, spleen, non-tender, soft Results Result Diagram: 09/01/17 0424 09/01/17 0424 Results 24 hrs Laboratory Tests Test 08/31/17 15:49 08/31/17 16:01 08/31/17 16:16 08/31/17 17:25 Bedside Glucose 62 L 270 H 234 H Hemoglobin 7.9 L Hematocrit 25.6 L Test 08/31/17 18:28 08/31/17 21:43 09/01/17 04:24 09/01/17 07:59 Bedside Glucose 159 185 97 White Blood Count 8.2 Red Blood Count 2.93 L Hemoglobin 7.6 L Hematocrit 25.1 L Mean Corpuscular Volume 85.7 Mean Corpuscular Hemoglobin 25.9 L Mean Corpuscular Hemoglobin Concent 30.3 L Red Cell Distribution Width 13.8 Platelet Count 390 Mean Platelet Volume 10.0 Neutrophils % 64.8 Lymphocytes % 24.5 Monocytes % 7.7 Eosinophils % 2.2 Basophils % 0.4 Nucleated Red Blood Cells % 0.0 Neutrophils # 5.3 Lymphocytes # 2.0 Monocytes # 0.6 Eosinophils # 0.2 Basophils # 0.0 Nucleated Red Blood Cells # 0.0 Prothrombin Time 13.2 Prothrombin Time Ratio 1.0 INR International Normalized Ratio 1.00 Activated Partial Thromboplast Time 40.1 H Sodium Level 145 H Potassium Level 4.7 Chloride Level 114 H Carbon Dioxide Level 24 Anion Gap 12 Blood Urea Nitrogen 24 H Creatinine 1.44 H Glucose Level 98 # Calcium Level 8.6 Magnesium Level 2.0 Total Bilirubin 0.1 L Direct Bilirubin 0.00 Indirect Bilirubin 0.1 Aspartate Amino Transf (AST/SGOT) 11 L Alanine Aminotransferase (ALT/SGPT) 18 Alkaline Phosphatase 80 Total Protein 6.6 Albumin 3.0 L Globulin 3.60 H Albumin/Globulin Ratio 0.83 Carcinoembryonic Antigen 5.7 H Test 09/01/17 09:36 09/01/17 11:48 Bedside Glucose 104 91 Medications Medications Current Medications Ondansetron HCl (Zofran Inj) 4 mg Q6H PRN IV NAUSEA AND/OR VOMITING; Start at 14:00 Acetaminophen (Tylenol Tab) 650 mg Q6H PRN PO PAIN LEVEL 1-3 OR FEVER; Start 08/30/17 at 14:00 Acetaminophen (Tylenol Supp) 650 mg Q6H PRN [place] PAIN LEVEL 1-3 OR FEVER; Start 08/30/17 at 14:00 Morphine Sulfate (morphine) 2 mg Q4H PRN IV SEVERE PAIN LEVEL 7-10; Start at 14:00 Carvedilol (Coreg) 12.5 mg BID PO Last administered on 09/01/17 11:01; Admin Dose 12.5 MG; Start 08/30/17 at 21:00 Gabapentin (Neurontin) 100 mg TID PO Last administered on 08/31/17 21:45; Admin Dose 100 MG; Start 08/30/17 at 21:00 Levetiracetam (Keppra) 500 mg BID PO Last administered on 08/31/17 21:45; Admin Dose 500 MG; Start 08/30/17 at 21:00 Losartan Potassium (Cozaar) 25 mg DAILY PO Last administered on 09/01/17 11: 00; Admin Dose 25 MG; Start 08/31/17 at 09:00 Atorvastatin Calcium (Lipitor) 10 mg DAILY@21 PO Last administered on 21:53; Admin Dose 10 MG; Start 08/30/17 at 21:00 Pantoprazole (Protonix Iv) 40 mg BID@06,18 IV Last administered on 09/01/17 05:54; Admin Dose 40 MG; Start 08/30/17 at 18:00 Insulin Glargine (Lantus) 14 unit DAILY@08 SC Last administered on 09/01/17 09:37; Admin Dose 14 UNIT; Start 08/31/17 at 08:00 Diagnostic Test (Pha) (Accu-Chek) 1 ea 02 XX ; Start 08/31/17 at 02:00 Amlodipine Besylate (Norvasc) 5 mg DAILY PO Last administered on 09/01/17 11: 00; Admin Dose 5 MG; Start 08/31/17 at 09:00 Miscellaneous Information 1 ea NOTE XX ; Start 08/30/17 at 14:30 Glucose (Glutose) 15 gm Q15M PRN PO DECREASED GLUCOSE; Start 08/30/17 at 14:30 Glucose (Glutose) 22.5 gm Q15M PRN PO DECREASED GLUCOSE; Start 08/30/17 at 14: 30 Dextrose (D50w Syringe) 25 ml Q15M PRN IV DECREASED GLUCOSE; Start 08/30/17 at 14:30 Dextrose (D50w Syringe) 50 ml Q15M PRN IV DECREASED GLUCOSE Last administered on 08/31/17 15:51; Admin Dose 50 ML; Start 08/30/17 at 14:30 Glucagon (Glucagen) 1 mg Q15M PRN IM DECREASED GLUCOSE; Start 08/30/17 at 14: 30 Glucose 15 gm 15 gm Q15M PRN BUCCAL DECREASED GLUCOSE; Start 08/30/17 at 14:30 Sodium Chloride 1,000 ml @ 70 mls/hr [id number] IV Last administered on 12:53; Admin Dose 70 MLS/HR; Start 08/30/17 at 16:30 Ferric Sodium Gluconate Complex/ Sodium Chloride (Ferrlecit/NS) 110 ml @ 110 mls/hr Q24H IVPB Last administered on 08/31/17 18:58; Admin Dose 110 MLS/HR; Start 08/30/17 at 18:00; Stop 09/03/17 at 18:59 Docusate Sodium (Colace) 100 mg BID PO Last administered on 08/31/17 09:15; Admin Dose 100 MG; Start 08/30/17 at 21:00 Bisacodyl (Dulcolax) 5 mg DAILY PRN PO CONSTIPATION; Start 08/30/17 at 20:00 KRYSTAL JOYCE MD Sep 01, 2017 12:55
[2017-09-01 13:31] VITALS: BP 133/64; PULSE 79; RESP 18
[2017-09-01] MEDS ORDERED: SOD CHLORIDE 0.9% 100 ML ONE (15:38)
[2017-09-01] MEDS ORDERED: IODIXANOL LOCM 100 ML BTL ONE (15:38)
--- NOTE | 2017-09-01 16:39 | PN ---
Date/Time of Note Date/Time of Note DATE: 09/01/17 TIME: 16:35 Assessment/Plan VTE Prophylaxis VTE Prophylaxis Intervention: SCD's Lines/Catheters [facility] Urinary Cath still in place: No Assessment/Plan Chief Complaint/Hosp Course Summary Assessment and Plan: Assessment: Anemia-hypochromic Positive FOBT (outpatient) Colonoscopy Large semicircumferential malignant mass mid ascending colon. Multiple biopsies obtained. Localization tattoo applied. Moderate-sized internal hemorrhoids Otherwise normal colonoscopy to cecum Plan: Ct abd/pelvis-pending Review pathology as soon as available Surgical consult maintain clear liquid diet Patient seen in collaboration with Subjective: Course reviewed with nursing staff Patient interviewed and examined All labs, imaging and other results reviewed Family at bedside, discussed results of colonoscopy and tentative plan. Surgical consult Will adjust plan of care based on CT and bx results PHYSICAL EXAMINATION: GENERAL: Well developed, well nourished, alert & oriented x 3, in no acute distress SKIN: No lesions, no stigmata chronic liver disease, no evidence of bleeding diathesis LYMPHATIC: No palpable lymphadenopathy. HEAD: Normocephalic, atraumatic, no tenderness. EYES: Pupils equal reactive to light and accommodation, full extraocular movements, sclera clear, non-icteric, no discharge. EARS/NOSE AND THROAT: Ears normal, nose normal, oropharynx normal, oral membranes well hydrated without lesions. NECK: Supple, no masses, thyroid normal, JVP within normal limits, carotids normal without bruits. CHEST: Inspection within normal limits. CARDIOVASCULAR: Heart: Regular rate and rhythm, no murmurs, gallops or rubs. Peripheral pulses present within normal limits, no cyanosis, clubbing or edemas. No pulsatile abdominal mass RESPIRATORY: Lungs clear to auscultation and percussion, no wheezing, no rubs GASTROINTESTINAL AND LIVER: Abdomen: Soft, non tenderness, non-distended, no hernias, no masses, no organomegaly, no ascites, no guarding, no rebound tenderness, normoactive bowel sounds. Rectal: Deferred. GENITOURINARY: Female genitalia within normal limits. EXTREMITIES: No cyanosis, clubbing or edema. Problems: Exam/Review of Systems Vital Signs Vitals Vital Signs Date Time Temp Pulse Resp B/P Pulse Ox O2 Delivery O2 Flow Rate FiO2 09/01/17 13:31 98.6 79 18 133/64 09/01/17 07:39 99 08/31/17 18:25 Room Air 08/31/17 10:56 21 08/30/17 09:51 2 Intake and Output 08/31/17 08/31/17 09/01/17 15:00 23:00 07:00 Intake Total 650 ml 710 ml 870 ml Balance 650 ml 710 ml 870 ml Results Result Diagram: 09/01/17 0424 09/01/17 0424 Results 24 hrs Laboratory Tests Test 08/31/17 17:25 08/31/17 18:28 08/31/17 21:43 09/01/17 04:24 Hemoglobin 7.9 L 7.6 L Hematocrit 25.6 L 25.1 L Bedside Glucose 159 185 White Blood Count 8.2 Red Blood Count 2.93 L Mean Corpuscular Volume 85.7 Mean Corpuscular Hemoglobin 25.9 L Mean Corpuscular Hemoglobin Concent 30.3 L Red Cell Distribution Width 13.8 Platelet Count 390 Mean Platelet Volume 10.0 Neutrophils % 64.8 Lymphocytes % 24.5 Monocytes % 7.7 Eosinophils % 2.2 Basophils % 0.4 Nucleated Red Blood Cells % 0.0 Neutrophils # 5.3 Lymphocytes # 2.0 Monocytes # 0.6 Eosinophils # 0.2 Basophils # 0.0 Nucleated Red Blood Cells # 0.0 Prothrombin Time 13.2 Prothrombin Time Ratio 1.0 INR International Normalized Ratio 1.00 Activated Partial Thromboplast Time 40.1 H Sodium Level 145 H Potassium Level 4.7 Chloride Level 114 H Carbon Dioxide Level 24 Anion Gap 12 Blood Urea Nitrogen 24 H Creatinine 1.44 H Glucose Level 98 # Calcium Level 8.6 Magnesium Level 2.0 Total Bilirubin 0.1 L Direct Bilirubin 0.00 Indirect Bilirubin 0.1 Aspartate Amino Transf (AST/SGOT) 11 L Alanine Aminotransferase (ALT/SGPT) 18 Alkaline Phosphatase 80 Total Protein 6.6 Albumin 3.0 L Globulin 3.60 H Albumin/Globulin Ratio 0.83 Carcinoembryonic Antigen 5.7 H Test 09/01/17 07:59 09/01/17 09:36 09/01/17 11:48 Bedside Glucose 97 104 91 Medications Medications Current Medications Ondansetron HCl (Zofran Inj) 4 mg Q6H PRN IV NAUSEA AND/OR VOMITING; Start at 14:00 Acetaminophen (Tylenol Tab) 650 mg Q6H PRN PO PAIN LEVEL 1-3 OR FEVER; Start 08/30/17 at 14:00 Acetaminophen (Tylenol Supp) 650 mg Q6H PRN [place] PAIN LEVEL 1-3 OR FEVER; Start 08/30/17 at 14:00 Morphine Sulfate (morphine) 2 mg Q4H PRN IV SEVERE PAIN LEVEL 7-10; Start at 14:00 Carvedilol (Coreg) 12.5 mg BID PO Last administered on 09/01/17 11:01; Admin Dose 12.5 MG; Start 08/30/17 at 21:00 Gabapentin (Neurontin) 100 mg TID PO Last administered on 08/31/17 21:45; Admin Dose 100 MG; Start 08/30/17 at 21:00 Levetiracetam (Keppra) 500 mg BID PO Last administered on 08/31/17 21:45; Admin Dose 500 MG; Start 08/30/17 at 21:00 Losartan Potassium (Cozaar) 25 mg DAILY PO Last administered on 09/01/17 11: 00; Admin Dose 25 MG; Start 08/31/17 at 09:00 Atorvastatin Calcium (Lipitor) 10 mg DAILY@21 PO Last administered on 21:53; Admin Dose 10 MG; Start 08/30/17 at 21:00 Pantoprazole (Protonix Iv) 40 mg BID@06,18 IV Last administered on 09/01/17 05:54; Admin Dose 40 MG; Start 08/30/17 at 18:00 Insulin Glargine (Lantus) 14 unit DAILY@08 SC Last administered on 09/01/17 09:37; Admin Dose 14 UNIT; Start 08/31/17 at 08:00 Diagnostic Test (Pha) (Accu-Chek) 1 ea 02 XX ; Start 08/31/17 at 02:00 Amlodipine Besylate (Norvasc) 5 mg DAILY PO Last administered on 09/01/17 11: 00; Admin Dose 5 MG; Start 08/31/17 at 09:00 Miscellaneous Information 1 ea NOTE XX ; Start 08/30/17 at 14:30 Glucose (Glutose) 15 gm Q15M PRN PO DECREASED GLUCOSE; Start 08/30/17 at 14:30 Glucose (Glutose) 22.5 gm Q15M PRN PO DECREASED GLUCOSE; Start 08/30/17 at 14: 30 Dextrose (D50w Syringe) 25 ml Q15M PRN IV DECREASED GLUCOSE; Start 08/30/17 at 14:30 Dextrose (D50w Syringe) 50 ml Q15M PRN IV DECREASED GLUCOSE Last administered on 08/31/17 15:51; Admin Dose 50 ML; Start 08/30/17 at 14:30 Glucagon (Glucagen) 1 mg Q15M PRN IM DECREASED GLUCOSE; Start 08/30/17 at 14: 30 Glucose 15 gm 15 gm Q15M PRN BUCCAL DECREASED GLUCOSE; Start 08/30/17 at 14:30 Sodium Chloride 1,000 ml @ 70 mls/hr [id number] IV Last administered on 12:53; Admin Dose 70 MLS/HR; Start 08/30/17 at 16:30 Ferric Sodium Gluconate Complex/ Sodium Chloride (Ferrlecit/NS) 110 ml @ 110 mls/hr Q24H IVPB Last administered on 08/31/17 18:58; Admin Dose 110 MLS/HR; Start 08/30/17 at 18:00; Stop 09/03/17 at 18:59 Docusate Sodium (Colace) 100 mg BID PO Last administered on 08/31/17 09:15; Admin Dose 100 MG; Start 08/30/17 at 21:00 Bisacodyl (Dulcolax) 5 mg DAILY PRN PO CONSTIPATION; Start 08/30/17 at 20:00 EFRAIN CADENA Sep 01, 2017 16:39
[2017-09-01] MEDS: SOD FERRIC GLUC COMPLX 125 MG in SOD CHLORIDE 0.9% 100 ML IVPB SCH (18:22)
[2017-09-01] MEDS: ATORVASTATIN 10 MG TAB PO SCH (20:57)
[2017-09-01 21:51] VITALS: BP 175/77; RESP 18
[2017-09-01 22:07] VITALS: BP 153/72; PULSE 76
[2017-09-02] MEDS: ACCU-CHEK XX SCH (02:00)
[2017-09-02] MEDS: SOD CHLORIDE 0.45% 1,000 ML IV SCH ×3 (02:26→21:44)
[2017-09-02 03:00] VITALS: BP 164/74; RESP 19
[2017-09-02] MEDS: hydrALAzine 20 MG INJ IV PRN (03:17)
[2017-09-02 04:16] VITALS: BP 135/60; PULSE 78
[2017-09-02] MEDS: PANTOPRAZOLE 40 MG INJ IV SCH ×2 (05:05→17:28)
[2017-09-02 07:50] VITALS: BP 150/68; RESP 17
[2017-09-02] MEDS: INSULIN ASPART [NOVOLOG] 3 ML PEN SC SCH ×4 (08:00→20:40)
--- NOTE | 2017-09-02 08:17 | RADRPT ---
PROCEDURE: CT scan of the abdomen and pelvis with IV contrast. CLINICAL INDICATION: 72-year-old female with ascending colon mass. TECHNIQUE: Thin section axial, coronal and sagittal images were performed through the abdomen and pelvis following uncomplicated intravenous administration of 100 ccs of Omnipaque-300 contrast. Imag es were performed on a [employer] scanner. Radiation Dose: CTDI: 8.91 and DLP: 502.6 One or more of the following dose reduction techniques were used: - Automated exposure control. - Adjustment of the mA and/or kV according to patient size. Use of iterative reconstruction technique. COMPARISON: CT scan abdomen pelvis 01/14/2016. FINDINGS: Soft tissues: Lungs and pleural spaces: There are plate-like densities in the right left lower lobes with bibasila r ground-glass infiltrates consistent with areas of atelectasis. No pleural effusion or pulmonary no dule is identified. Heart: There are vascular calcifications in the left coronary artery. The heart is normal in size. N o pericardial effusion is identified. The liver, common bile duct and gallbladder: There is moderate intrahepatic biliary ductal dilatatio n. The extrahepatic common bile duct is dilated. A biliary stent is noted in place. No hepatic metas tasis identified. The hepatic and portal veins are patent. Pericholecystic fluid is noted adjacent t o the gallbladder. The gallbladder wall is normal. There is no evidence of cholelithiasis. Gastrointestinal: Radiodensities are noted in the dorsal wall of the distal esophagus which are unch anged and may relate to prior surgery. Gastric wall thickening is noted but likely relates to incomp lete distension. The small bowel loops have a normal caliber. A biliary stent extends from the commo n bile duct into the duodenum. There is a mass in the ascending colon which measures at least a 4.7 cm in length, likely up to 6.7 cm in length. Extension of the mass to the serosal surface of the col on is not excluded. No additional colonic lesion is noted. The vermiform appendix is normal. Pancreas: Normal. The extrahepatic common bile duct is dilated measuring up to 17 mm.. The main panc reatic duct is normal. Resolution of the peripancreatic fatty infiltrative changes since the prior study of 01/14/2016. Kidneys, bladder and adrenal glands : The adrenal glands are normal. There is some stranding adjacen t to the cortex of the both kidneys. There is focal cortical scarring involving both kidneys. 84 mm subcapsular cyst is noted off the dorsal mid pole of the right kidney. This requires no additional f ollow-up. The urinary bladder is normal. Some air is noted in the urinary bladder. This may have bee n introduced iatrogenically but clinical correlation is needed. There secondary to a gas-forming org anism could have a similar appearance. Spleen: A new lesion has developed in the subcapsular midbody of the spleen measuring 8.5 mm. The sp lenic metastasis or granuloma might present this fashion. Lymph nodes: Normal. Reproductive system and pelvis : The uterus is retroverted. No free fluid is noted in the pelvis. No abnormal adnexal mass is identified. No ovarian mass is identified. Bony elements: There are degenerative osteophytes in the thoracic and lumbar spine. A benign hemangi erica is noted in the right side of the L3. It is unchanged compared to 01/14/2016. Vasculature: There are vascular calcifications in the lower thoracic and abdominal aorta. There are vascular calcifications in the common iliac arteries, internal and external iliac and common femoral arteries. There is a vascular stent in the left inguinal area. IMPRESSION: 1. A mass is identified in the ascending colon extending from just above the cecum to just below th e hepatic flexure. It measures between 4.7 and 6.7 cm in length. Invasion of tumor into the serosa m ay be present. 2. Interval development of a 8.5 mm lesion in the spleen. Splenic metastasis must be considered. Co nsider PET CT scan for further evaluation. 3. Pericholecystic fluid. 4. Moderate intrahepatic and extrahepatic biliary ductal dilatation. Biliary stent extending from t he level of the common hepatic duct to the duodenum. 5. Renal cortical scarring with a 4 mm subcapsular benign cyst in the dorsal midpole of the right k idney. 6. Benign hemangioma in the right side of L3. 7. Retroverted uterus. 8. The urinary bladder contains fluid and air. Etiology unclear. Clinical correlation is needed. 9. Vascular stent in the left inguinal area unchanged compared to 01/14/2016. RPTAT:AAJJ Audie aDisy, Physician Date Time Electronically viewed and signed by Audie Villa Physician on 09/02/2017 08:16 SOLOMON/
[2017-09-02] MEDS: INSULIN GLARGINE [LANtus] 3 ML PEN SC SCH (08:21)
[2017-09-02] MEDS: ACETAMINOPHEN 325 MG TAB PO PRN (08:24)
[2017-09-02] MEDS: LEVETIRACETAM 500 MG TAB PO SCH ×2 (08:24→20:39)
[2017-09-02] MEDS: GABAPENTIN 100 MG CAP PO SCH ×3 (08:24→20:39)
[2017-09-02] MEDS: DOCUSATE SODIUM 100 MG CAP PO SCH ×2 (08:24→20:40)
[2017-09-02] MEDS: AMLODIPINE 5 MG TAB PO SCH (08:25)
[2017-09-02] MEDS: LOSARTAN 25 MG TAB PO SCH (08:26)
[2017-09-02 10:13] VITALS: BP 128/58; PULSE 73
--- NOTE | 2017-09-02 11:32 | PN ---
Date/Time of Note Date/Time of Note DATE: 09/02/17 TIME: 11:29 Assessment/Plan VTE Prophylaxis VTE Prophylaxis Intervention: other Lines/Catheters IV [facility] Saline Lock Urinary Cath still in place: No Assessment/Plan Problems: (1) Hyperlipidemia Status: Chronic Comment: Continue with statin therapy as per standard of care Qualifiers: Hyperlipidemia type: pure hypercholesterolemia Qualified Code: E78.00 - Pure hypercholesterolemia (2) Essential hypertension Status: Chronic Comment: Adequate control. However some side effects with the amlodipine. Discontinue amlodipine titrated up on the losartan first and then the beta- blockers after (3) Diabetes mellitus type 2 in nonobese Status: Chronic Comment: Good control (4) Colonic mass Status: Acute Comment: Noted. Please see the CT scan report. I am especially concerned about the report of air in the urinary bladder. Culture is being obtained we will place her on Zosyn pending the report of the culture final pathology is pending. Oncology consult once we have that (5) Lower GI bleed Status: Acute Comment: As above being treated with IV iron (6) History of acute pancreatitis Status: Resolved Comment: Noted. (7) History of biliary duct stent placement Status: Chronic Comment: For removal in morning. Subjective 24 Hr Interval Summary Free Text/Dictation Extremely charming woman who reports she is otherwise doing relatively well Constitutional: no complaints Respiratory: no complaints Cardiovascular: no complaints Gastrointestinal: no complaints Genitourinary: dysuria Exam/Review of Systems Vital Signs Vitals Vital Signs Date Time Temp Pulse Resp B/P Pulse Ox O2 Delivery O2 Flow Rate FiO2 09/02/17 10:13 98.3 73 128/58 09/02/17 07:50 17 97 08/31/17 18:25 Room Air 08/31/17 10:56 21 08/30/17 09:51 2 Intake and Output 09/01/17 09/01/17 09/02/17 15:00 23:00 07:00 Intake Total 1070 ml 610 ml Balance 1070 ml 610 ml Exam Constitutional: alert, oriented Neck: non-tender, supple Respiratory: clear to auscultation, normal air movement Cardiovascular: nl pulses, regular rate and rhythm Results Result Diagram: 09/01/17 0424 09/01/17 0424 Results 24 hrs Laboratory Tests Test 09/01/17 11:48 09/01/17 16:35 09/01/17 17:03 09/01/17 17:24 Bedside Glucose 91 68 L 95 Urine Color YELLOW Urine Clarity SLIGHTLY CLOUDY A Urine pH 5.0 Urine Specific [place] 1.012 Urine Ketones NEGATIVE Urine Nitrite NEGATIVE Urine Bilirubin NEGATIVE Urine Urobilinogen NEGATIVE Urine Leukocyte Esterase 3+ H Urine Microscopic RBC 3 Urine Microscopic WBC 80 H Urine Squamous Epithelial Cells FEW Urine Bacteria FEW A Urine Hemoglobin 1+ H Urine Glucose NEGATIVE Urine Total Protein 1+ H Test 09/01/17 17:46 09/01/17 20:54 09/02/17 05:35 09/02/17 08:07 Bedside Glucose 113 106 107 Lab Scanned Report BLOOD TRANSFUSION Test 09/02/17 10:05 Bedside Glucose 155 Medications Medications Current Medications Ondansetron HCl (Zofran Inj) 4 mg Q6H PRN IV NAUSEA AND/OR VOMITING; Start at 14:00 Acetaminophen (Tylenol Tab) 650 mg Q6H PRN PO PAIN LEVEL 1-3 OR FEVER Last administered on 09/02/17 08:24; Admin Dose 650 MG; Start 08/30/17 at 14:00 Acetaminophen (Tylenol Supp) 650 mg Q6H PRN IN PAIN LEVEL 1-3 OR FEVER; Start 08/30/17 at 14:00 Morphine Sulfate (morphine) 2 mg Q4H PRN IV SEVERE PAIN LEVEL 7-10; Start at 14:00 Carvedilol (Coreg) 12.5 mg BID PO Last administered on 09/02/17 08:25; Admin Dose 12.5 MG; Start 08/30/17 at 21:00 Gabapentin (Neurontin) 100 mg TID PO Last administered on 09/02/17 08:24; Admin Dose 100 MG; Start 08/30/17 at 21:00 Levetiracetam (Keppra) 500 mg BID PO Last administered on 09/02/17 08:24; Admin Dose 500 MG; Start 08/30/17 at 21:00 Losartan Potassium (Cozaar) 25 mg DAILY PO Last administered on 09/02/17 08: 26; Admin Dose 25 MG; Start 08/31/17 at 09:00 Atorvastatin Calcium (Lipitor) 10 mg DAILY@21 PO Last administered on 20:57; Admin Dose 10 MG; Start 08/30/17 at 21:00 Pantoprazole (Protonix Iv) 40 mg BID@06,18 IV Last administered on 09/02/17 05:05; Admin Dose 40 MG; Start 08/30/17 at 18:00 Insulin Glargine (Lantus) 14 unit DAILY@08 SC Last administered on 09/02/17 08:21; Admin Dose 14 UNIT; Start 08/31/17 at 08:00 Diagnostic Test (Pha) (Accu-Chek) 1 ea 02 XX ; Start 08/31/17 at 02:00 Amlodipine Besylate (Norvasc) 5 mg DAILY PO Last administered on 09/02/17 08: 25; Admin Dose 5 MG; Start 08/31/17 at 09:00 Miscellaneous Information 1 ea NOTE XX ; Start 08/30/17 at 14:30 Glucose (Glutose) 15 gm Q15M PRN PO DECREASED GLUCOSE; Start 08/30/17 at 14:30 Glucose (Glutose) 22.5 gm Q15M PRN PO DECREASED GLUCOSE; Start 08/30/17 at 14: 30 Dextrose (D50w Syringe) 25 ml Q15M PRN IV DECREASED GLUCOSE; Start 08/30/17 at 14:30 Dextrose (D50w Syringe) 50 ml Q15M PRN IV DECREASED GLUCOSE Last administered on 08/31/17 15:51; Admin Dose 50 ML; Start 08/30/17 at 14:30 Glucagon (Glucagen) 1 mg Q15M PRN IM DECREASED GLUCOSE; Start 08/30/17 at 14: 30 Glucose 15 gm 15 gm Q15M PRN BUCCAL DECREASED GLUCOSE; Start 08/30/17 at 14:30 Sodium Chloride 1,000 ml @ 70 mls/hr [id number] IV Last administered on 02:26; Admin Dose 70 MLS/HR; Start 08/30/17 at 16:30 Ferric Sodium Gluconate Complex/ Sodium Chloride (Ferrlecit/NS) 110 ml @ 110 mls/hr Q24H IVPB Last administered on 09/01/17 18:22; Admin Dose 110 MLS/HR; Start 08/30/17 at 18:00; Stop 09/03/17 at 18:59 Docusate Sodium (Colace) 100 mg BID PO Last administered on 09/02/17 08:24; Admin Dose 100 MG; Start 08/30/17 at 21:00 Bisacodyl (Dulcolax) 5 mg DAILY PRN PO CONSTIPATION; Start 08/30/17 at 20:00 Hydralazine HCl 10 mg 10 mg Q4H PRN IV ELEVATED BLOOD PRESSURE Last administered on 09/02/17 03:17; Admin Dose 10 MG; Start 09/02/17 at 03:30 Piperacillin Sod/ Tazobactam Sod (Zosyn 3.375gm/ 100 ml (Pmx)) 100 ml @ 200 mls /hr Q8 IVPB ; Start 09/02/17 at 14:00 KRYSTAL JOYCE MD Sep 02, 2017 11:32
[2017-09-02] MEDS: PIPER-TAZO 3.375 GM IV (PMX) 100 ML IVPB SCH ×2 (13:16→21:44)
[2017-09-02 15:12] VITALS: BP 137/65; RESP 17
--- NOTE | 2017-09-02 16:54 | CONS ---
Date/Time of Note Date/Time of Note DATE: 09/02/17 TIME: 16:50 Assessment/Plan Assessment/Plan Additional Assessment/Plan 72-year-old female with a past medical history of hypertension, hypercholesterolemia, type 2 diabetes, iron deficiency anemia,atherosclerosis, left AKA, Pancreatitis with status post ERCP with sphincterotomy and stent placement, who was sent by patient's primary care doctor for evaluation of anemia with rectal bleed/positive FOBT. Renal has been consulted for RODRICK, Metabolic acidosis and Hyperkalemia Additional Assessment/Plan 1. Non oliguric Acute kidney injury on possible CKD due to prerenal azotemi + ATN Bun/cr 28/11.44- trending down - CT abdomen/pelvis today- 2. 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 Acute hyperkalemia due to RODRICK on CKD- resolved 4. Severe Iron deficiency anemia with possible FOBT Positive, pt also has contributing anemia of CKD - PER GI - SP PRBC 1 unit transfusion 5. H/o Type II DM poorly controlled with HBA1c 8.9 6. H/o HTN 7. 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 -continue 1/2 NS at 75 cc/hr -Plan for endoscopy for GI bleeding work up today by GI -will follow up - Plan of care marianne Shearer/staff Consultation Date/Type/Reason Admit Date/Time Aug 30, 2017 at 10:29 Initial Consult Date 08/30/17 Type of Consultation: NEPHROLOGY Referring Provider: JUSTIN CHANDLER 24 HR Interval Summary Free Text/Dictation NAD, FEELS BETTER, FAMILY AT BED SIDE- all qs answered, Constitutional: improved Detailed Summary Respiratory: no complaints Cardiovascular: no complaints Gastrointestinal: no complaints Genitourinary: no complaints Musculoskeletal: no complaints Exam/Review of Systems Vital Signs Vitals Vital Signs Date Time Temp Pulse Resp B/P Pulse Ox O2 Delivery O2 Flow Rate FiO2 09/02/17 15:12 98.0 68 17 137/65 98 08/31/17 18:25 Room Air 08/31/17 10:56 21 08/30/17 09:51 2 Intake and Output 09/01/17 09/01/17 09/02/17 15:00 23:00 07:00 Intake Total 1070 ml 610 ml Balance 1070 ml 610 ml Exam Constitutional: alert, oriented, well developed Respiratory: clear to auscultation, diminished breath sounds Cardiovascular: nl pulses, other (s1s2) Gastrointestinal: non-tender, soft Musculoskeletal: nl extremities to inspection Neurological: nl mental status, nl speech Results Result Diagram: 09/01/174 09/01/17 0424 Results 24 hrs Laboratory Tests Test 09/01/17 17:03 09/01/17 17:24 09/01/17 17:46 09/01/17 18:00 Bedside Glucose 68 L 95 113 Stool Occult Blood NEGATIVE Test 09/01/17 20:54 09/02/17 05:35 09/02/17 08:07 09/02/17 10:05 Bedside Glucose 106 107 155 Lab Scanned Report BLOOD TRANSFUSION Test 09/02/17 12:06 09/02/17 14:30 Bedside Glucose 140 Urine Color YELLOW Urine Clarity CLOUDY A Urine pH 6.0 Urine Specific [place] 1.008 Urine Ketones NEGATIVE Urine Nitrite NEGATIVE Urine Bilirubin NEGATIVE Urine Urobilinogen NEGATIVE Urine Leukocyte Esterase 3+ H Urine Microscopic RBC 4 Urine Microscopic WBC 149 H Urine Bacteria FEW A Urine Hemoglobin 1+ H Urine Glucose NEGATIVE Urine Total Protein 2+ H Medications Medications Current Medications Ondansetron HCl (Zofran Inj) 4 mg Q6H PRN IV NAUSEA AND/OR VOMITING; Start at 14:00 Acetaminophen (Tylenol Tab) 650 mg Q6H PRN PO PAIN LEVEL 1-3 OR FEVER Last administered on 09/02/17 08:24; Admin Dose 650 MG; Start 08/30/17 at 14:00 Acetaminophen (Tylenol Supp) 650 mg Q6H PRN [place] PAIN LEVEL 1-3 OR FEVER; Start 08/30/17 at 14:00 Morphine Sulfate (morphine) 2 mg Q4H PRN IV SEVERE PAIN LEVEL 7-10; Start at 14:00 Carvedilol (Coreg) 12.5 mg BID PO Last administered on 09/02/17 08:25; Admin Dose 12.5 MG; Start 08/30/17 at 21:00 Gabapentin (Neurontin) 100 mg TID PO Last administered on 09/02/17 13:13; Admin Dose 100 MG; Start 08/30/17 at 21:00 Levetiracetam (Keppra) 500 mg BID PO Last administered on 09/02/17 08:24; Admin Dose 500 MG; Start 08/30/17 at 21:00 Atorvastatin Calcium (Lipitor) 10 mg DAILY@21 PO Last administered on 20:57; Admin Dose 10 MG; Start 08/30/17 at 21:00 Pantoprazole (Protonix Iv) 40 mg BID@06,18 IV Last administered on 09/02/17 05:05; Admin Dose 40 MG; Start 08/30/17 at 18:00 Insulin Glargine (Lantus) 14 unit DAILY@08 SC Last administered on 09/02/17 08:21; Admin Dose 14 UNIT; Start 08/31/17 at 08:00 Diagnostic Test (Pha) (Accu-Chek) 1 ea 02 XX ; Start 08/31/17 at 02:00 Miscellaneous Information 1 ea NOTE XX ; Start 08/30/17 at 14:30 Glucose (Glutose) 15 gm Q15M PRN PO DECREASED GLUCOSE; Start 08/30/17 at 14:30 Glucose (Glutose) 22.5 gm Q15M PRN PO DECREASED GLUCOSE; Start 08/30/17 at 14: 30 Dextrose (D50w Syringe) 25 ml Q15M PRN IV DECREASED GLUCOSE; Start 08/30/17 at 14:30 Dextrose (D50w Syringe) 50 ml Q15M PRN IV DECREASED GLUCOSE Last administered on 08/31/17 15:51; Admin Dose 50 ML; Start 08/30/17 at 14:30 Glucagon (Glucagen) 1 mg Q15M PRN IM DECREASED GLUCOSE; Start 08/30/17 at 14: 30 Glucose 15 gm 15 gm Q15M PRN BUCCAL DECREASED GLUCOSE; Start 08/30/17 at 14:30 Sodium Chloride 1,000 ml @ 70 mls/hr [id number] IV Last administered on 02:26; Admin Dose 70 MLS/HR; Start 08/30/17 at 16:30 Ferric Sodium Gluconate Complex/ Sodium Chloride (Ferrlecit/NS) 110 ml @ 110 mls/hr Q24H IVPB Last administered on 09/01/17 18:22; Admin Dose 110 MLS/HR; Start 08/30/17 at 18:00; Stop 09/03/17 at 18:59 Docusate Sodium (Colace) 100 mg BID PO Last administered on 09/02/17 08:24; Admin Dose 100 MG; Start 08/30/17 at 21:00 Bisacodyl (Dulcolax) 5 mg DAILY PRN PO CONSTIPATION; Start 08/30/17 at 20:00 Hydralazine HCl 10 mg 10 mg Q4H PRN IV ELEVATED BLOOD PRESSURE Last administered on 09/02/17 03:17; Admin Dose 10 MG; Start 09/02/17 at 03:30 Piperacillin Sod/ Tazobactam Sod (Zosyn 3.375gm/ 100 ml (Pmx)) 100 ml @ 200 mls /hr Q8 IVPB Last administered on 09/02/17 13:16; Admin Dose 200 MLS/HR; Start 09/02/17 at 14:00 Losartan Potassium (Cozaar) 50 mg DAILY PO ; Start 09/03/17 at 09:00 LIANE CRAIG Sep 02, 2017 16:54
[2017-09-02] MEDS: SOD FERRIC GLUC COMPLX 125 MG in SOD CHLORIDE 0.9% 100 ML IVPB SCH (17:28)
--- NOTE | 2017-09-02 17:46 | PN ---
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 Multiple biopsies obtained. Localization tattoo applied. Moderate-sized internal hemorrhoids Otherwise normal colonoscopy to cecum Plan: Ct abd/pelvis-reviewed Review pathology as soon as available Patient will need Surgical consult Continue clear liquid diet Patient seen in collaboration with Subjective: Course reviewed with nursing staff Patient interviewed and examined All labs, imaging and other results reviewed Pt currently stable denies abd pain, nausea, or vomiting. Monica family at bedside PHYSICAL EXAMINATION: GENERAL: Well developed, well nourished, alert & oriented x 3, in no acute distress SKIN: No lesions, no stigmata chronic liver disease, no evidence of bleeding diathesis LYMPHATIC: No palpable lymphadenopathy. HEAD: Normocephalic, atraumatic, no tenderness. EYES: Pupils equal reactive to light and accommodation, full extraocular movements, sclera clear, non-icteric, no discharge. EARS/NOSE AND THROAT: Ears normal, nose normal, oropharynx normal, oral membranes well hydrated without lesions. NECK: Supple, no masses, thyroid normal, JVP within normal limits, carotids normal without bruits. CHEST: Inspection within normal limits. CARDIOVASCULAR: Heart: Regular rate and rhythm, no murmurs, gallops or rubs. Peripheral pulses present within normal limits, no cyanosis, clubbing or edemas. No pulsatile abdominal mass RESPIRATORY: Lungs clear to auscultation and percussion, no wheezing, no rubs GASTROINTESTINAL AND LIVER: Abdomen: Soft, non tenderness, non-distended, no hernias, no masses, no organomegaly, no ascites, no guarding, no rebound tenderness, normoactive bowel sounds. Rectal: Deferred. GENITOURINARY: Female genitalia within normal limits. EXTREMITIES: No cyanosis, clubbing or edema. Problems: Exam/Review of Systems Vital Signs Vitals Vital Signs Date Time Temp Pulse Resp B/P Pulse Ox O2 Delivery O2 Flow Rate FiO2 09/02/17 15:12 98.0 68 17 137/65 98 08/31/17 18:25 Room Air 08/31/17 10:56 21 08/30/17 09:51 2 Intake and Output 09/01/17 09/01/17 09/02/17 15:00 23:00 07:00 Intake Total 1070 ml 610 ml Balance 1070 ml 610 ml Results Result Diagram: 09/01/17 0424 09/01/17 0424 Results 24 hrs Laboratory Tests Test 09/01/17 17:46 09/01/17 18:00 09/01/17 20:54 09/02/17 05:35 Bedside Glucose 113 106 Stool Occult Blood NEGATIVE Lab Scanned Report BLOOD TRANSFUSION Test 09/02/17 08:07 09/02/17 10:05 09/02/17 12:06 09/02/17 14:30 Bedside Glucose 107 155 140 Urine Color YELLOW Urine Clarity CLOUDY A Urine pH 6.0 Urine Specific [place] 1.008 Urine Ketones NEGATIVE Urine Nitrite NEGATIVE Urine Bilirubin NEGATIVE Urine Urobilinogen NEGATIVE Urine Leukocyte Esterase 3+ H Urine Microscopic RBC 4 Urine Microscopic WBC 149 H Urine Bacteria FEW A Urine Hemoglobin 1+ H Urine Glucose NEGATIVE Urine Total Protein 2+ H Test 09/02/17 16:58 09/02/17 17:27 Bedside Glucose 57 L 135 Medications Medications Current Medications Ondansetron HCl (Zofran Inj) 4 mg Q6H PRN IV NAUSEA AND/OR VOMITING; Start at 14:00 Acetaminophen (Tylenol Tab) 650 mg Q6H PRN PO PAIN LEVEL 1-3 OR FEVER Last administered on 09/02/17 08:24; Admin Dose 650 MG; Start 08/30/17 at 14:00 Acetaminophen (Tylenol Supp) 650 mg Q6H PRN [place] PAIN LEVEL 1-3 OR FEVER; Start 08/30/17 at 14:00 Morphine Sulfate (morphine) 2 mg Q4H PRN IV SEVERE PAIN LEVEL 7-10; Start at 14:00 Carvedilol (Coreg) 12.5 mg BID PO Last administered on 09/02/17 08:25; Admin Dose 12.5 MG; Start 08/30/17 at 21:00 Gabapentin (Neurontin) 100 mg TID PO Last administered on 09/02/17 13:13; Admin Dose 100 MG; Start 08/30/17 at 21:00 Levetiracetam (Keppra) 500 mg BID PO Last administered on 09/02/17 08:24; Admin Dose 500 MG; Start 08/30/17 at 21:00 Atorvastatin Calcium (Lipitor) 10 mg DAILY@21 PO Last administered on 20:57; Admin Dose 10 MG; Start 08/30/17 at 21:00 Pantoprazole (Protonix Iv) 40 mg BID@06,18 IV Last administered on 09/02/17 17:28; Admin Dose 40 MG; Start 08/30/17 at 18:00 Insulin Glargine (Lantus) 14 unit DAILY@08 SC Last administered on 09/02/17 08:21; Admin Dose 14 UNIT; Start 08/31/17 at 08:00 Diagnostic Test (Pha) (Accu-Chek) 1 ea 02 XX ; Start 08/31/17 at 02:00 Miscellaneous Information 1 ea NOTE XX ; Start 08/30/17 at 14:30 Glucose (Glutose) 15 gm Q15M PRN PO DECREASED GLUCOSE; Start 08/30/17 at 14:30 Glucose (Glutose) 22.5 gm Q15M PRN PO DECREASED GLUCOSE; Start 08/30/17 at 14: 30 Dextrose (D50w Syringe) 25 ml Q15M PRN IV DECREASED GLUCOSE; Start 08/30/17 at 14:30 Dextrose (D50w Syringe) 50 ml Q15M PRN IV DECREASED GLUCOSE Last administered on 08/31/17 15:51; Admin Dose 50 ML; Start 08/30/17 at 14:30 Glucagon (Glucagen) 1 mg Q15M PRN IM DECREASED GLUCOSE; Start 08/30/17 at 14: 30 Glucose 15 gm 15 gm Q15M PRN BUCCAL DECREASED GLUCOSE; Start 08/30/17 at 14:30 Sodium Chloride 1,000 ml @ 70 mls/hr [id number] IV Last administered on 02:26; Admin Dose 70 MLS/HR; Start 08/30/17 at 16:30 Ferric Sodium Gluconate Complex/ Sodium Chloride (Ferrlecit/NS) 110 ml @ 110 mls/hr Q24H IVPB Last administered on 09/02/17 17:28; Admin Dose 110 MLS/HR; Start 08/30/17 at 18:00; Stop 09/03/17 at 18:59 Docusate Sodium (Colace) 100 mg BID PO Last administered on 09/02/17 08:24; Admin Dose 100 MG; Start 08/30/17 at 21:00 Bisacodyl (Dulcolax) 5 mg DAILY PRN PO CONSTIPATION; Start 08/30/17 at 20:00 Hydralazine HCl 10 mg 10 mg Q4H PRN IV ELEVATED BLOOD PRESSURE Last administered on 09/02/17 03:17; Admin Dose 10 MG; Start 09/02/17 at 03:30 Piperacillin Sod/ Tazobactam Sod (Zosyn 3.375gm/ 100 ml (Pmx)) 100 ml @ 200 mls /hr Q8 IVPB Last administered on 09/02/17 13:16; Admin Dose 200 MLS/HR; Start 09/02/17 at 14:00 Losartan Potassium (Cozaar) 50 mg DAILY PO ; Start 09/03/17 at 09:00 EFRAIN CADENA Sep 02, 2017 17:46
[2017-09-02 19:58] VITALS: BP 156/68; RESP 20
[2017-09-02] MEDS: ATORVASTATIN 10 MG TAB PO SCH (20:40)
[2017-09-03] MEDS: ACCU-CHEK XX SCH (01:57)
[2017-09-03 02:00] VITALS: BP 136/63; RESP 18
[2017-09-03] MEDS: PANTOPRAZOLE 40 MG INJ IV SCH ×2 (05:31→17:27)
[2017-09-03] MEDS: PIPER-TAZO 3.375 GM IV (PMX) 100 ML IVPB SCH ×3 (05:31→21:47)
[2017-09-03] MEDS: INSULIN ASPART [NOVOLOG] 3 ML PEN SC SCH ×4 (07:53→21:00)
[2017-09-03 08:12] VITALS: BP 135/64; RESP 18
[2017-09-03] MEDS: INSULIN GLARGINE [LANtus] 3 ML PEN SC SCH (08:14)
[2017-09-03] MEDS: DOCUSATE SODIUM 100 MG CAP PO SCH ×2 (08:14→21:38)
[2017-09-03] MEDS: GABAPENTIN 100 MG CAP PO SCH ×3 (08:14→21:38)
[2017-09-03] MEDS: LEVETIRACETAM 500 MG TAB PO SCH ×2 (08:15→21:38)
[2017-09-03] MEDS: LOSARTAN 50 MG TAB PO SCH (08:15)
--- NOTE | 2017-09-03 11:50 | PN ---
Date/Time of Note Date/Time of Note DATE: 09/03/17 TIME: 11:50 Assessment/Plan VTE Prophylaxis VTE Prophylaxis Intervention: ambulation Lines/Catheters IV Catheter Type (from [facility]): Peripheral IV Urinary Cath still in place: No Assessment/Plan Chief Complaint/Hosp Course 72-year-old female with family hx of colon cancer (mother), who was sent by primary care doctor to the emergency room for evaluation of anemia and positive FOBT done as outpatient. 1. Large colon mass-highly suspicious for malignancy.CT with possible tumor invasion to spleen. -Surgical consult to determine if mass is amenable to surgical resection. -Follow-up with biopsy results for heme/onco involvement. 2. Iron deficient Anemia with rectal bleed with suspicion of underlying possible colon malignancy. H&H stable. -Continue with iron replacement. 3. Urinary tract infection with possibility of emphysematous cystitis. This possibly explains the CT abdomen and pelvis findings of fluid and air in the urinary bladder along with positive urine culture growing gram-negative rods. Differential is possible colovesicular fistula given the findings of colonoscopy. -Insert Pathak catheter, continue broad-spectrum antibiotics. Follow-up with final cultures. 4. Hx biliary Pancreatitis, status post ERCP with sphincterotomy and stent placement. -Tentative plan for repeat ERCP with stent removal per GI team. 5. RODRICK on likely CKD. Note patient with long-standing hx of DM put her at risk of DM nephropathy. Function stabilizing. -Nephrology on board. -Monitor renal fxn closely-Renally dose meds 6. Essential hypertension -Continue home medications 7. Hypercholesterolemia. -Continue statin. 8. Type 2 diabetes. A1C 8.9. With good control. -Continue Accu-Cheks/ISS/Lantus 9. Diabetic neuropathy. -Continue gabapentin 10. Diabetic foot ulcer, right. Chronic - wound care 11. Peripheral vascular disease, status post left AKA. -Hold aspirin secondary to GI bleed. 12. Constipation. Stable -Stool softeners/ PRN Laxatives. 13. Hyperkalemia. Resolved. GI prophylaxis: PPI Patient was seen in collaboration with Dr. Tinsley Problems: Subjective 24 Hr Interval Summary Free Text/Dictation Overall, patient doing well. She denied any bleeding episodes. Patient had some burning when she urinates occasionally. Exam/Review of Systems Vital Signs Vitals Vital Signs Date Time Temp Pulse Resp B/P Pulse Ox O2 Delivery O2 Flow Rate FiO2 09/03/17 08:12 98.1 75 18 135/64 98 08/31/17 18:25 Room Air 08/31/17 10:56 21 08/30/17 09:51 2 Intake and Output 09/02/17 09/02/17 09/03/17 15:00 23:00 07:00 Intake Total 100 ml 2000 ml 1465 ml Balance 100 ml 2000 ml 1465 ml Exam General: Well developed,adequately built female, not in any acute distress . HEENT: Normocephalic, Atraumatic, No laceration or hematoma; Eyes: PEERL, Conjunctiva clear, Anicteric sclera Neck: Supple without any lymphadenopathy, nontender, no JVD, no carotid bruits, trachea midline, no thyromegaly Cardiac: S1, S2 auscultated, regular rhythm and rate, no mumurs or gallop Pulmonary: Normal respiratory effort. Chest clear to auscultation bilaterally, no adventitious breath sounds GI: Abdomen normal to inspection. Soft, non tender, non- distended, no masses, no rebound tenderness or guarding. Bowel sounds active on all four quadrants Genitourinary: With some dysuria. No hematuria. Extremities: Left AKA. No cyanosis, clubbing, or edema. Pulses [2+] bilaterally. Full ROM on all THREE extremities. No focal weakness appreciated. Neurologic: Alert to person, place, time, and situation. Affect appropriate, intact sensation. Skin: Clean,dry, and intact. No ecchymosis, no rashes, or lesions Results Result Diagram: 09/03/17 0501 09/03/17 0501 Results 24 hrs Laboratory Tests Test 09/02/17 12:06 09/02/17 14:30 09/02/17 16:58 09/02/17 17:27 Bedside Glucose 140 57 L 135 Urine Color YELLOW Urine Clarity CLOUDY A Urine pH 6.0 Urine Specific [place] 1.008 Urine Ketones NEGATIVE Urine Nitrite NEGATIVE Urine Bilirubin NEGATIVE Urine Urobilinogen NEGATIVE Urine Leukocyte Esterase 3+ H Urine Microscopic RBC 4 Urine Microscopic WBC 149 H Urine Bacteria FEW A Urine Hemoglobin 1+ H Urine Glucose NEGATIVE Urine Total Protein 2+ H Test 09/02/17 18:07 09/02/17 20:37 09/03/17 01:54 09/03/17 05:01 Bedside Glucose 251 H 285 H 163 White Blood Count 9.2 Red Blood Count 3.80 #L Hemoglobin 10.0 #L Hematocrit 32.1 #L Mean Corpuscular Volume 84.5 Mean Corpuscular Hemoglobin 26.3 L Mean Corpuscular Hemoglobin Concent 31.2 L Red Cell Distribution Width 13.7 Platelet Count 385 Mean Platelet Volume 9.9 Neutrophils % 67.7 Lymphocytes % 21.9 Monocytes % 7.6 Eosinophils % 2.1 Basophils % 0.3 Nucleated Red Blood Cells % 0.0 Neutrophils # 6.2 Lymphocytes # 2.0 Monocytes # 0.7 Eosinophils # 0.2 Basophils # 0.0 Nucleated Red Blood Cells # 0.0 Sodium Level 144 Potassium Level 4.1 Chloride Level 112 H Carbon Dioxide Level 22 Anion Gap 14 Blood Urea Nitrogen 14 Creatinine 1.60 H Glucose Level 107 Calcium Level 8.6 Total Bilirubin 0.2 Direct Bilirubin 0.00 Indirect Bilirubin 0.2 Aspartate Amino Transf (AST/SGOT) 13 L Alanine Aminotransferase (ALT/SGPT) 20 Alkaline Phosphatase 83 Total Protein 6.7 Albumin 3.1 L Globulin 3.60 H Albumin/Globulin Ratio 0.86 Test 09/03/17 07:52 09/03/17 11:42 Bedside Glucose 121 134 Medications Medications Current Medications Ondansetron HCl (Zofran Inj) 4 mg Q6H PRN IV NAUSEA AND/OR VOMITING; Start at 14:00 Acetaminophen (Tylenol Tab) 650 mg Q6H PRN PO PAIN LEVEL 1-3 OR FEVER Last administered on 09/02/17 08:24; Admin Dose 650 MG; Start 08/30/17 at 14:00 Acetaminophen (Tylenol Supp) 650 mg Q6H PRN [place] PAIN LEVEL 1-3 OR FEVER; Start 08/30/17 at 14:00 Morphine Sulfate (morphine) 2 mg Q4H PRN IV SEVERE PAIN LEVEL 7-10; Start at 14:00 Carvedilol (Coreg) 12.5 mg BID PO Last administered on 09/03/17 08:15; Admin Dose 12.5 MG; Start 08/30/17 at 21:00 Gabapentin (Neurontin) 100 mg TID PO Last administered on 09/03/17 08:14; Admin Dose 100 MG; Start 08/30/17 at 21:00 Levetiracetam (Keppra) 500 mg BID PO Last administered on 09/03/17 08:15; Admin Dose 500 MG; Start 08/30/17 at 21:00 Atorvastatin Calcium (Lipitor) 10 mg DAILY@21 PO Last administered on 20:40; Admin Dose 10 MG; Start 08/30/17 at 21:00 Pantoprazole (Protonix Iv) 40 mg BID@06,18 IV Last administered on 09/03/17 05:31; Admin Dose 40 MG; Start 08/30/17 at 18:00 Insulin Glargine (Lantus) 14 unit DAILY@08 SC Last administered on 09/03/17 08:14; Admin Dose 14 UNIT; Start 08/31/17 at 08:00 Diagnostic Test (Pha) (Accu-Chek) 1 ea 02 XX ; Start 08/31/17 at 02:00 Miscellaneous Information 1 ea NOTE XX ; Start 08/30/17 at 14:30 Glucose (Glutose) 15 gm Q15M PRN PO DECREASED GLUCOSE; Start 08/30/17 at 14:30 Glucose (Glutose) 22.5 gm Q15M PRN PO DECREASED GLUCOSE; Start 08/30/17 at 14: 30 Dextrose (D50w Syringe) 25 ml Q15M PRN IV DECREASED GLUCOSE; Start 08/30/17 at 14:30 Dextrose (D50w Syringe) 50 ml Q15M PRN IV DECREASED GLUCOSE Last administered on 08/31/17 15:51; Admin Dose 50 ML; Start 08/30/17 at 14:30 Glucagon (Glucagen) 1 mg Q15M PRN IM DECREASED GLUCOSE; Start 08/30/17 at 14: 30 Glucose 15 gm 15 gm Q15M PRN BUCCAL DECREASED GLUCOSE; Start 08/30/17 at 14:30 Sodium Chloride 1,000 ml @ 70 mls/hr [id number] IV Last administered on 21:44; Admin Dose 70 MLS/HR; Start 08/30/17 at 16:30 Ferric Sodium Gluconate Complex/ Sodium Chloride (Ferrlecit/NS) 110 ml @ 110 mls/hr Q24H IVPB Last administered on 09/02/17 17:28; Admin Dose 110 MLS/HR; Start 08/30/17 at 18:00; Stop 09/03/17 at 18:59 Docusate Sodium (Colace) 100 mg BID PO Last administered on 09/03/17 08:14; Admin Dose 100 MG; Start 08/30/17 at 21:00 Bisacodyl (Dulcolax) 5 mg DAILY PRN PO CONSTIPATION; Start 08/30/17 at 20:00 Hydralazine HCl 10 mg 10 mg Q4H PRN IV ELEVATED BLOOD PRESSURE Last administered on 09/02/17 03:17; Admin Dose 10 MG; Start 09/02/17 at 03:30 Piperacillin Sod/ Tazobactam Sod (Zosyn 3.375gm/ 100 ml (Pmx)) 100 ml @ 200 mls /hr Q8 IVPB Last administered on 09/03/17 05:31; Admin Dose 200 MLS/HR; Start 09/02/17 at 14:00 Losartan Potassium (Cozaar) 50 mg DAILY PO Last administered on 09/03/17 08: 15; Admin Dose 50 MG; Start 09/03/17 at 09:00 BERNARD PYLE NP Sep 03, 2017 11:50
[2017-09-03 14:00] VITALS: BP 153/70; RESP 18
[2017-09-03] MEDS: SOD CHLORIDE 0.45% 1,000 ML IV SCH ×2 (14:00→20:36)
[2017-09-03] MEDS: SOD FERRIC GLUC COMPLX 125 MG in SOD CHLORIDE 0.9% 100 ML IVPB SCH (17:27)
--- NOTE | 2017-09-03 17:39 | CONS ---
Date/Time of Note Date/Time of Note DATE: 09/03/17 TIME: 17:37 Assessment/Plan Assessment/Plan Chief Complaint/Hosp Course 72-year-old female with a past medical history of hypertension, hypercholesterolemia, type 2 diabetes, iron deficiency anemia,atherosclerosis, left AKA, Pancreatitis with status post ERCP with sphincterotomy and stent placement, who was sent by patient's primary care doctor for evaluation of anemia with rectal bleed/positive FOBT. pt give h/o positive FOBT but denies any BRBPR. Pt denies any previous PMHx of CKD, kidney stone and kidney cyst. In the emergency room, patient's hemoglobin was 8.1, hematocrit 26.6, potassium 5.6, BUN 44, and creatinine 2.12. Patient was given 30 g Kayexalate in the emergency room. pt also has severe iron deficiency with Iron saturation level 7. BP stable, afebrile Renal has been consulted for RODRICK, Metabolic acidosis and Hyperkalemia Problems: Additional Assessment/Plan 1. Non oliguric Acute kidney injury on possible CKD due to prerenal azotemi + ATN f 2. 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 Acute hyperkalemia due to RODRICK on CKD 4. Severe Iron deficiency anemia with possible FOBT Positive, pt also has contributing anemia of CKD 5. H/o Type II DM poorly controlled with HBA1c 8.9 6. H/o HTN 7. H/o PVD Plan: Pt has RODRICK on CKD- Today BUN/Cr improving - Cr 1.6 today K stable Ferrlecit 125mg IV daily x 5 days started for iron def anemia - Finishing today Renal US and Urine studies c/w low proteinuric CKD and medical renal disease continue 1/2 NS at 75 cc/hr- expectgn Cr to improve with IVF Other plan as per GI and PMD will follow up Consultation Date/Type/Reason Admit Date/Time Aug 30, 2017 at 10:29 Initial Consult Date 08/30/17 Type of Consultation: NEPHROLOGY Referring Provider: JUSTIN CHANDLER 24 HR Interval Summary Free Text/Dictation Cr 1.6, K normal, Exam/Review of Systems Vital Signs Vitals Vital Signs Date Time Temp Pulse Resp B/P Pulse Ox O2 Delivery O2 Flow Rate FiO2 09/03/17 14:00 97.6 68 18 153/70 98 08/31/17 18:25 Room Air 08/31/17 10:56 21 08/30/17 09:51 2 Intake and Output 09/02/17 09/02/17 09/03/17 15:00 23:00 07:00 Intake Total 100 ml 2000 ml 1465 ml Balance 100 ml 2000 ml 1465 ml Exam Constitutional: alert Respiratory: clear to auscultation, diminished breath sounds, normal air movement Cardiovascular: nl pulses, regular rate and rhythm Gastrointestinal: firm, non-tender, soft Musculoskeletal: muscle tone, muscle weakness, nl extremities to inspection, nl gait and stance Extremities: normal pulses Neurological: MIS[employer] PREFLIGHT II-XII intact, nl mental status, nl speech, nl strength Results Result Diagram: 09/03/17 0501 09/03/17 0501 Results 24 hrs Laboratory Tests Test 09/02/17 18:07 09/02/17 20:37 09/03/17 01:54 09/03/17 05:01 Bedside Glucose 251 H 285 H 163 White Blood Count 9.2 Red Blood Count 3.80 #L Hemoglobin 10.0 #L Hematocrit 32.1 #L Mean Corpuscular Volume 84.5 Mean Corpuscular Hemoglobin 26.3 L Mean Corpuscular Hemoglobin Concent 31.2 L Red Cell Distribution Width 13.7 Platelet Count 385 Mean Platelet Volume 9.9 Neutrophils % 67.7 Lymphocytes % 21.9 Monocytes % 7.6 Eosinophils % 2.1 Basophils % 0.3 Nucleated Red Blood Cells % 0.0 Neutrophils # 6.2 Lymphocytes # 2.0 Monocytes # 0.7 Eosinophils # 0.2 Basophils # 0.0 Nucleated Red Blood Cells # 0.0 Sodium Level 144 Potassium Level 4.1 Chloride Level 112 H Carbon Dioxide Level 22 Anion Gap 14 Blood Urea Nitrogen 14 Creatinine 1.60 H Glucose Level 107 Calcium Level 8.6 Total Bilirubin 0.2 Direct Bilirubin 0.00 Indirect Bilirubin 0.2 Aspartate Amino Transf (AST/SGOT) 13 L Alanine Aminotransferase (ALT/SGPT) 20 Alkaline Phosphatase 83 Total Protein 6.7 Albumin 3.1 L Globulin 3.60 H Albumin/Globulin Ratio 0.86 Test 09/03/17 07:52 09/03/17 11:42 Bedside Glucose 121 134 Medications Medications Current Medications Ondansetron HCl (Zofran Inj) 4 mg Q6H PRN IV NAUSEA AND/OR VOMITING; Start at 14:00 Acetaminophen (Tylenol Tab) 650 mg Q6H PRN PO PAIN LEVEL 1-3 OR FEVER Last administered on 09/02/17 08:24; Admin Dose 650 MG; Start 08/30/17 at 14:00 Acetaminophen (Tylenol Supp) 650 mg Q6H PRN [place] PAIN LEVEL 1-3 OR FEVER; Start 08/30/17 at 14:00 Morphine Sulfate (morphine) 2 mg Q4H PRN IV SEVERE PAIN LEVEL 7-10; Start at 14:00 Carvedilol (Coreg) 12.5 mg BID PO Last administered on 09/03/17 08:15; Admin Dose 12.5 MG; Start 08/30/17 at 21:00 Gabapentin (Neurontin) 100 mg TID PO Last administered on 09/03/17 13:56; Admin Dose 100 MG; Start 08/30/17 at 21:00 Levetiracetam (Keppra) 500 mg BID PO Last administered on 09/03/17 08:15; Admin Dose 500 MG; Start 08/30/17 at 21:00 Atorvastatin Calcium (Lipitor) 10 mg DAILY@21 PO Last administered on 20:40; Admin Dose 10 MG; Start 08/30/17 at 21:00 Pantoprazole (Protonix Iv) 40 mg BID@06,18 IV Last administered on 09/03/17 17:27; Admin Dose 40 MG; Start 08/30/17 at 18:00 Insulin Glargine (Lantus) 14 unit DAILY@08 SC Last administered on 09/03/17 08:14; Admin Dose 14 UNIT; Start 08/31/17 at 08:00 Diagnostic Test (Pha) (Accu-Chek) 1 ea 02 XX ; Start 08/31/17 at 02:00 Miscellaneous Information 1 ea NOTE XX ; Start 08/30/17 at 14:30 Glucose (Glutose) 15 gm Q15M PRN PO DECREASED GLUCOSE; Start 08/30/17 at 14:30 Glucose (Glutose) 22.5 gm Q15M PRN PO DECREASED GLUCOSE; Start 08/30/17 at 14: 30 Dextrose (D50w Syringe) 25 ml Q15M PRN IV DECREASED GLUCOSE; Start 08/30/17 at 14:30 Dextrose (D50w Syringe) 50 ml Q15M PRN IV DECREASED GLUCOSE Last administered on 08/31/17 15:51; Admin Dose 50 ML; Start 08/30/17 at 14:30 Glucagon (Glucagen) 1 mg Q15M PRN IM DECREASED GLUCOSE; Start 08/30/17 at 14: 30 Glucose 15 gm 15 gm Q15M PRN BUCCAL DECREASED GLUCOSE; Start 08/30/17 at 14:30 Sodium Chloride 1,000 ml @ 70 mls/hr [id number] IV Last administered on 14:00; Admin Dose 70 MLS/HR; Start 08/30/17 at 16:30 Ferric Sodium Gluconate Complex/ Sodium Chloride (Ferrlecit/NS) 110 ml @ 110 mls/hr Q24H IVPB Last administered on 09/03/17 17:27; Admin Dose 110 MLS/HR; Start 08/30/17 at 18:00; Stop 09/03/17 at 18:59 Docusate Sodium (Colace) 100 mg BID PO Last administered on 09/03/17 08:14; Admin Dose 100 MG; Start 08/30/17 at 21:00 Bisacodyl (Dulcolax) 5 mg DAILY PRN PO CONSTIPATION; Start 08/30/17 at 20:00 Hydralazine HCl 10 mg 10 mg Q4H PRN IV ELEVATED BLOOD PRESSURE Last administered on 09/02/17 03:17; Admin Dose 10 MG; Start 09/02/17 at 03:30 Piperacillin Sod/ Tazobactam Sod (Zosyn 3.375gm/ 100 ml (Pmx)) 100 ml @ 200 mls /hr Q8 IVPB Last administered on 09/03/17 13:58; Admin Dose 200 MLS/HR; Start 09/02/17 at 14:00 Losartan Potassium (Cozaar) 50 mg DAILY PO Last administered on 09/03/17 08: 15; Admin Dose 50 MG; Start 09/03/17 at 09:00 SHADI GOINS MD Sep 03, 2017 17:39
[2017-09-03 20:16] VITALS: BP 185/76; RESP 18
[2017-09-03] MEDS: ATORVASTATIN 10 MG TAB PO SCH (21:38)
[2017-09-03 23:13] VITALS: BP 134/63; PULSE 71
--- NOTE | 2017-09-04 00:50 | CONS ---
Date/Time of Note Date/Time of Note DATE: 09/03/17 TIME: 11:30 Assessment/Plan Assessment/Plan Chief Complaint/Hosp Course 1. Right colonic adenocarcinoma. Enlarged lymph node. Questionable splenic mass/metastasis -Oncology for evaluation -Will need eventual colectomy possible splenectomy (consider PET/CT to evaluate the splenic lesion) -Medical optimization -GI optimization (removal of biliary stent) 2. Biliary stent with biliary ductal dilatation and pericholecystic fluid. History of gallstone pancreatitis. -As above -Will need eventual surgery for gallbladder as well 3. Anemia secondary to lower GI bleed secondary to right colonic adenocarcinoma -As above -Transfuse as needed 4. Diabetes -Diet and medication optimization 5. Hypertension -Diet and medication optimization 6. Hypercholesterolemia -Diet and medication optimization 7. Atherosclerotic cardiovascular disease with peripheral vascular disease -Cardiac medical optimization. Patient at high risk for surgical intervention 8. Electrolyte imbalance -Correct prior to any surgical intervention Thank you very much for consulting me in this patient's care, Late entry 09/03 Problems: Consultation Date/Type/Reason Admit Date/Time Aug 30, 2017 at 10:29 Date of Consultation: Sep 03, 2017 Type of Consultation: General surgical Reason for Consultation Right colonic mass GI bleed with anemia Splenic lesion Referring Provider: BERNARD PYLE NP Hx of Present Illness [place] Contreras 72-year-old female with significant comorbidities who for the past almost month has had blackish stools with generalized progressive weakness and lack of energy who was found to the fecal occult blood test positive and anemic by her primary and was subsequently referred to the hospital for further evaluation and treatment. She is normally on aspirin and iron pills at home. She denies any trauma or sick contacts. She denies any fevers or chills. Denies chest pain, shortness of breath, visual, or other neurologic changes. Patient denies dysuria or abnormal vaginal discharge. Reports subjectively losing weight however has not weighed herself. She denies any new headache bone pain or lesions palpable. After admission she had colonoscopy by Dr. Culver who identified ascending colon lesion and multiple biopsies were obtained. Tattoo was placed. Subsequently patient had CT scan of the abdomen pelvis identifying right colonic lesion with lymph nodes and also splenic lesion. Pathology is positive for moderately well differentiated adenocarcinoma. Patient also has a biliary stent with biliary ductal dilatation and pericholecystic fluid. Surgical consult is obtained further evaluation and treatment. Constitutional: improved, No chills, No diaphoresis, No febrile Eyes: no complaints ENT: no complaints Respiratory: no complaints Cardiovascular: no complaints Gastrointestinal: blood (Black tarry stools), constipation, flatus, pain ( Minimal), No nausea, No vomiting Genitourinary: no complaints, No dysuria Musculoskeletal: no complaints, No back pain Skin: no complaints, No bruising Neurologic: no complaints Endocrine: no complaints Lymphatic: no complaints Psychological: no complaints Immunologic: no complaints Past Medical History Anemia Lower GI bleed Diabetes Hypertension Hypercholesterolemia Right colon mass, adenocarcinoma Splenic lesion Hepatic hemangioma Pericholecystic fluid Cholelithiasis Biliary Pancreatitis Atherosclerotic vascular disease Renal insufficiency with elevated creatinine Hypoalbuminemia Peripheral vascular disease Diabetic foot ulcer history Neuropathy Metabolic acidosis Hyperkalemia Constipation Medical History: other Past Surgical History ERCP with stent, still present Left AKA Colonoscopy Family History Significant Family History: no pertinent family hx Social History Alcohol Use: none Smoking Status: Never smoker Drug Use: none Exam/Review of Systems Vital Signs Vitals Vital Signs Date Time Temp Pulse Resp B/P Pulse Ox O2 Delivery O2 Flow Rate FiO2 09/03/17 23:13 71 134/63 09/03/17 20:16 98.2 18 98 08/31/17 18:25 Room Air 08/31/17 10:56 21 Intake and Output 09/03/17 09/03/17 09/04/17 15:00 23:00 07:00 Intake Total 575 ml 1240 ml Output Total 1300 ml Balance 575 ml -60 ml Exam Constitutional: alert, No distress Psych: nl mood/affect, No anxiety Head: atraumatic, normocephalic Eyes: EOMI, PERRL, nl conjunctiva, No icteric ENMT: mucosa pink and moist, nl external ears & nose, nl lips & teeth Neck: non-tender, supple, No jvd Respiratory: normal air movement, No congested cough, No labored breathing Cardiovascular: regular rate and rhythm, No edema Gastrointestinal: non-tender, soft, No distended, No rebound or guarding Musculoskeletal: nl extremities to inspection, nl gait and stance, No joint tenderness Extremities: normal pulses, No calf tenderness, No cyanosis, No edema Neurological: nl mental status, nl speech, nl strength, No confused Skin: nl turgor, No diaphoresis, No rash or lesions Lymph: nl lymph nodes Results Result Diagram: 09/03/17 0501 09/03/17 0501 Results 24 hrs Laboratory Tests Test 09/03/17 01:54 09/03/17 05:01 09/03/17 07:52 09/03/17 11:42 Bedside Glucose 163 121 134 White Blood Count 9.2 Red Blood Count 3.80 #L Hemoglobin 10.0 #L Hematocrit 32.1 #L Mean Corpuscular Volume 84.5 Mean Corpuscular Hemoglobin 26.3 L Mean Corpuscular Hemoglobin Concent 31.2 L Red Cell Distribution Width 13.7 Platelet Count 385 Mean Platelet Volume 9.9 Neutrophils % 67.7 Lymphocytes % 21.9 Monocytes % 7.6 Eosinophils % 2.1 Basophils % 0.3 Nucleated Red Blood Cells % 0.0 Neutrophils # 6.2 Lymphocytes # 2.0 Monocytes # 0.7 Eosinophils # 0.2 Basophils # 0.0 Nucleated Red Blood Cells # 0.0 Sodium Level 144 Potassium Level 4.1 Chloride Level 112 H Carbon Dioxide Level 22 Anion Gap 14 Blood Urea Nitrogen 14 Creatinine 1.60 H Glucose Level 107 Calcium Level 8.6 Total Bilirubin 0.2 Direct Bilirubin 0.00 Indirect Bilirubin 0.2 Aspartate Amino Transf (AST/SGOT) 13 L Alanine Aminotransferase (ALT/SGPT) 20 Alkaline Phosphatase 83 Total Protein 6.7 Albumin 3.1 L Globulin 3.60 H Albumin/Globulin Ratio 0.86 Test 09/03/17 17:26 09/03/17 17:43 09/03/17 18:04 09/03/17 21:34 Bedside Glucose 69 L 82 145 158 Imaging Free Text/Dictation CT A/P: 1. A mass is identified in the ascending colon extending from just above the cecum to just below the hepatic flexure. It measures between 4.7 and 6.7 cm in length. Invasion of tumor into the serosa may be present. 2. Interval development of a 8.5 mm lesion in the spleen. Splenic metastasis must be considered. Consider PET CT scan for further evaluation. 3. Pericholecystic fluid. 4. Moderate intrahepatic and extrahepatic biliary ductal dilatation. Biliary stent extending from the level of the common hepatic duct to the duodenum. 5. Renal cortical scarring with a 4 mm subcapsular benign cyst in the dorsal midpole of the right kidney. 6. Benign hemangioma in the right side of L3. 7. Retroverted uterus. 8. The urinary bladder contains fluid and air. Etiology unclear. Clinical correlation is needed. 9. Vascular stent in the left inguinal area unchanged compared to 01/14/2016. Medications Medications Current Medications Ondansetron HCl (Zofran Inj) 4 mg Q6H PRN IV NAUSEA AND/OR VOMITING; Start at 14:00 Acetaminophen (Tylenol Tab) 650 mg Q6H PRN PO PAIN LEVEL 1-3 OR FEVER Last administered on 09/02/17 08:24; Admin Dose 650 MG; Start 08/30/17 at 14:00 Acetaminophen (Tylenol Supp) 650 mg Q6H PRN [place] PAIN LEVEL 1-3 OR FEVER; Start 08/30/17 at 14:00 Morphine Sulfate (morphine) 2 mg Q4H PRN IV SEVERE PAIN LEVEL 7-10; Start at 14:00 Carvedilol (Coreg) 12.5 mg BID PO Last administered on 09/03/17 21:47; Admin Dose 12.5 MG; Start 08/30/17 at 21:00 Gabapentin (Neurontin) 100 mg TID PO Last administered on 09/03/17 21:38; Admin Dose 100 MG; Start 08/30/17 at 21:00 Levetiracetam (Keppra) 500 mg BID PO Last administered on 09/03/17 21:38; Admin Dose 500 MG; Start 08/30/17 at 21:00 Atorvastatin Calcium (Lipitor) 10 mg DAILY@21 PO Last administered on 21:38; Admin Dose 10 MG; Start 08/30/17 at 21:00 Pantoprazole (Protonix Iv) 40 mg BID@06,18 IV Last administered on 09/03/17 17:27; Admin Dose 40 MG; Start 08/30/17 at 18:00 Insulin Glargine (Lantus) 14 unit DAILY@08 SC Last administered on 09/03/17 08:14; Admin Dose 14 UNIT; Start 08/31/17 at 08:00 Diagnostic Test (Pha) (Accu-Chek) 1 ea 02 XX ; Start 08/31/17 at 02:00 Miscellaneous Information 1 ea NOTE XX ; Start 08/30/17 at 14:30 Glucose (Glutose) 15 gm Q15M PRN PO DECREASED GLUCOSE; Start 08/30/17 at 14:30 Glucose (Glutose) 22.5 gm Q15M PRN PO DECREASED GLUCOSE; Start 08/30/17 at 14: 30 Dextrose (D50w Syringe) 25 ml Q15M PRN IV DECREASED GLUCOSE; Start 08/30/17 at 14:30 Dextrose (D50w Syringe) 50 ml Q15M PRN IV DECREASED GLUCOSE Last administered on 08/31/17 15:51; Admin Dose 50 ML; Start 08/30/17 at 14:30 Glucagon (Glucagen) 1 mg Q15M PRN IM DECREASED GLUCOSE; Start 08/30/17 at 14: 30 Glucose 15 gm 15 gm Q15M PRN BUCCAL DECREASED GLUCOSE; Start 08/30/17 at 14:30 Sodium Chloride (1/2 NS) 1,000 ml @ 70 mls/hr [id number] IV Last administered on 09/03/17 14:00; Admin Dose 70 MLS/HR; Start 08/30/17 at 16:30 Docusate Sodium (Colace) 100 mg BID PO Last administered on 09/03/17 21:38; Admin Dose 100 MG; Start 08/30/17 at 21:00 Bisacodyl (Dulcolax) 5 mg DAILY PRN PO CONSTIPATION; Start 08/30/17 at 20:00 Hydralazine HCl 10 mg 10 mg Q4H PRN IV ELEVATED BLOOD PRESSURE Last administered on 09/02/17 03:17; Admin Dose 10 MG; Start 09/02/17 at 03:30 Piperacillin Sod/ Tazobactam Sod (Zosyn 3.375gm/ 100 ml (Pmx)) 100 ml @ 200 mls /hr Q8 IVPB Last administered on 09/03/17 21:47; Admin Dose 200 MLS/HR; Start 09/02/17 at 14:00 Losartan Potassium (Cozaar) 50 mg DAILY PO Last administered on 09/03/17 08: 15; Admin Dose 50 MG; Start 09/03/17 at 09:00 ROLANDA TYLER MD Sep 04, 2017 00:40
[2017-09-04] MEDS: ACCU-CHEK XX SCH (02:00)
[2017-09-04] MEDS: PIPER-TAZO 3.375 GM IV (PMX) 100 ML IVPB SCH (05:37)
[2017-09-04] MEDS: SOD CHLORIDE 0.45% 1,000 ML IV SCH (05:37)
[2017-09-04] MEDS: PANTOPRAZOLE 40 MG INJ IV SCH ×2 (05:38→17:44)
[2017-09-04 07:35] VITALS: BP 167/75; RESP 18
[2017-09-04] MEDS: INSULIN ASPART [NOVOLOG] 3 ML PEN SC SCH ×4 (08:00→21:00)
[2017-09-04] MEDS: INSULIN GLARGINE [LANtus] 3 ML PEN SC SCH (08:12)
[2017-09-04] MEDS: DOCUSATE SODIUM 100 MG CAP PO SCH ×2 (08:59→21:40)
[2017-09-04] MEDS: LEVETIRACETAM 500 MG TAB PO SCH ×2 (08:59→21:40)
[2017-09-04] MEDS: LOSARTAN 50 MG TAB PO SCH (09:00)
[2017-09-04] MEDS: GABAPENTIN 100 MG CAP PO SCH ×3 (09:00→21:40)
--- NOTE | 2017-09-04 09:23 | CONS ---
Date/Time of Note Date/Time of Note DATE: 09/04/17 TIME: 09:20 Assessment/Plan Assessment/Plan Chief Complaint/Hosp Course 72-year-old female with a past medical history of hypertension, hypercholesterolemia, type 2 diabetes, iron deficiency anemia,atherosclerosis, left AKA, Pancreatitis with status post ERCP with sphincterotomy and stent placement, who was sent by patient's primary care doctor for evaluation of anemia with rectal bleed/positive FOBT. pt give h/o positive FOBT but denies any BRBPR. Pt denies any previous PMHx of CKD, kidney stone and kidney cyst. In the emergency room, patient's hemoglobin was 8.1, hematocrit 26.6, potassium 5.6, BUN 44, and creatinine 2.12. Patient was given 30 g Kayexalate in the emergency room. pt also has severe iron deficiency with Iron saturation level 7. BP stable, afebrile Renal has been consulted for RODRICK, Metabolic acidosis and Hyperkalemia Problems: Additional Assessment/Plan 1. Non oliguric Acute kidney injury on possible CKD due to prerenal azotemi + ATN 2. 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 Acute hyperkalemia due to RODRICK on CKD 4. Severe Iron deficiency anemia with possible FOBT Positive, pt also has contributing anemia of CKD 5. H/o Type II DM poorly controlled with HBA1c 8.9 6. H/o HTN 7. H/o PVD Plan: Pt has RODRICK on CKD- Today BUN/Cr improving - Cr 1.55, K stable D/c IV fluids 1/2 NS s/p Ferrlecit 125mg IV daily x 5 days- finished it. Renal US and Urine studies c/w low proteinuric CKD and medical renal disease Other plan as per GI and PMD follow up with Dr.Kalpesh Goins in 1-2 week after discharge( office phone # ) will follow up Consultation Date/Type/Reason Admit Date/Time Aug 30, 2017 at 10:29 Initial Consult Date 08/30/17 Type of Consultation: NEPHROLOGY Referring Provider: BERNARD PYLE NP 24 HR Interval Summary Free Text/Dictation Cr improved to 1.55, Na 146, BP runs on systolic side 150-160mm Hg Exam/Review of Systems Vital Signs Vitals Vital Signs Date Time Temp Pulse Resp B/P Pulse Ox O2 Delivery O2 Flow Rate FiO2 09/04/17 07:35 98.3 77 18 167/75 96 08/31/17 18:25 Room Air 08/31/17 10:56 21 Intake and Output 09/03/17 09/03/17 09/04/17 15:00 23:00 07:00 Intake Total 575 ml 1440 ml 1170 ml Output Total 1300 ml 1600 ml Balance 575 ml 140 ml -430 ml Exam Constitutional: alert Respiratory: clear to auscultation, diminished breath sounds, normal air movement Cardiovascular: nl pulses, regular rate and rhythm Gastrointestinal: firm, non-tender, soft Musculoskeletal: muscle tone, muscle weakness, nl extremities to inspection, nl gait and stance Extremities: normal pulses Neurological: PERSONAL CARE ATTENDANT II-XII intact, nl mental status, nl speech, nl strength Results Result Diagram: 09/04/17 0445 09/04/17 0444 Results 24 hrs Laboratory Tests Test 09/03/17 11:42 09/03/17 17:26 09/03/17 17:43 09/03/17 18:04 Bedside Glucose 134 69 L 82 145 Test 09/03/17 21:34 09/04/17 04:44 09/04/17 04:45 09/04/17 08:09 Bedside Glucose 158 99 Sodium Level 146 H Potassium Level 3.9 Chloride Level 113 H Carbon Dioxide Level 26 Anion Gap 11 Blood Urea Nitrogen 10 Creatinine 1.55 H Glucose Level 85 Calcium Level 8.5 Magnesium Level 1.6 L White Blood Count 7.0 # Red Blood Count 3.56 L Hemoglobin 9.6 L Hematocrit 30.7 L Mean Corpuscular Volume 86.2 Mean Corpuscular Hemoglobin 27.0 L Mean Corpuscular Hemoglobin Concent 31.3 L Red Cell Distribution Width 13.5 Platelet Count 381 Mean Platelet Volume 9.8 Neutrophils % 63.4 Lymphocytes % 23.5 Monocytes % 7.8 Eosinophils % 4.6 Basophils % 0.6 Nucleated Red Blood Cells % 0.0 Neutrophils # 4.5 Lymphocytes # 1.7 Monocytes # 0.6 Eosinophils # 0.3 Basophils # 0.0 Nucleated Red Blood Cells # 0.0 Medications Medications Current Medications Ondansetron HCl (Zofran Inj) 4 mg Q6H PRN IV NAUSEA AND/OR VOMITING; Start at 14:00 Acetaminophen (Tylenol Tab) 650 mg Q6H PRN PO PAIN LEVEL 1-3 OR FEVER Last administered on 09/02/17 08:24; Admin Dose 650 MG; Start 08/30/17 at 14:00 Acetaminophen (Tylenol Supp) 650 mg Q6H PRN [place] PAIN LEVEL 1-3 OR FEVER; Start 08/30/17 at 14:00 Morphine Sulfate (morphine) 2 mg Q4H PRN IV SEVERE PAIN LEVEL 7-10; Start at 14:00 Carvedilol (Coreg) 12.5 mg BID PO Last administered on 09/04/17 09:00; Admin Dose 12.5 MG; Start 08/30/17 at 21:00 Gabapentin (Neurontin) 100 mg TID PO Last administered on 09/04/17 09:00; Admin Dose 100 MG; Start 08/30/17 at 21:00 Levetiracetam (Keppra) 500 mg BID PO Last administered on 09/04/17 08:59; Admin Dose 500 MG; Start 08/30/17 at 21:00 Atorvastatin Calcium (Lipitor) 10 mg DAILY@21 PO Last administered on 21:38; Admin Dose 10 MG; Start 08/30/17 at 21:00 Pantoprazole (Protonix Iv) 40 mg BID@06,18 IV Last administered on 09/04/17 05:38; Admin Dose 40 MG; Start 08/30/17 at 18:00 Insulin Glargine (Lantus) 14 unit DAILY@08 SC Last administered on 09/04/17 08:12; Admin Dose 14 UNIT; Start 08/31/17 at 08:00 Diagnostic Test (Pha) (Accu-Chek) 1 ea 02 XX ; Start 08/31/17 at 02:00 Miscellaneous Information 1 ea NOTE XX ; Start 08/30/17 at 14:30 Glucose (Glutose) 15 gm Q15M PRN PO DECREASED GLUCOSE; Start 08/30/17 at 14:30 Glucose (Glutose) 22.5 gm Q15M PRN PO DECREASED GLUCOSE; Start 08/30/17 at 14: 30 Dextrose (D50w Syringe) 25 ml Q15M PRN IV DECREASED GLUCOSE; Start 08/30/17 at 14:30 Dextrose (D50w Syringe) 50 ml Q15M PRN IV DECREASED GLUCOSE Last administered on 08/31/17 15:51; Admin Dose 50 ML; Start 08/30/17 at 14:30 Glucagon (Glucagen) 1 mg Q15M PRN IM DECREASED GLUCOSE; Start 08/30/17 at 14: 30 Glucose 15 gm 15 gm Q15M PRN BUCCAL DECREASED GLUCOSE; Start 08/30/17 at 14:30 Sodium Chloride (1/2 NS) 1,000 ml @ 70 mls/hr [id number] IV Last administered on 09/04/17 05:37; Admin Dose 70 MLS/HR; Start 08/30/17 at 16:30 Docusate Sodium (Colace) 100 mg BID PO Last administered on 09/04/17 08:59; Admin Dose 100 MG; Start 08/30/17 at 21:00 Bisacodyl (Dulcolax) 5 mg DAILY PRN PO CONSTIPATION; Start 08/30/17 at 20:00 Hydralazine HCl 10 mg 10 mg Q4H PRN IV ELEVATED BLOOD PRESSURE Last administered on 09/02/17 03:17; Admin Dose 10 MG; Start 09/02/17 at 03:30 Piperacillin Sod/ Tazobactam Sod (Zosyn 3.375gm/ 100 ml (Pmx)) 100 ml @ 200 mls /hr Q8 IVPB Last administered on 09/04/17 05:37; Admin Dose 200 MLS/HR; Start 09/02/17 at 14:00 Losartan Potassium (Cozaar) 50 mg DAILY PO Last administered on 09/04/17 09: 00; Admin Dose 50 MG; Start 09/03/17 at 09:00 SHADI GOINS MD Sep 04, 2017 09:23
[2017-09-04 10:16] VITALS: BP 156/70; PULSE 70
--- NOTE | 2017-09-04 10:48 | PN ---
Date/Time of Note Date/Time of Note DATE: 09/04/17 TIME: 10:46 Assessment/Plan VTE Prophylaxis VTE Prophylaxis Intervention: ambulation Lines/Catheters IV Catheter Type (from Nrs): Peripheral IV Urinary Cath still in place: Yes Reason Cath still needed: other (indicate) Assessment/Plan Chief Complaint/Hosp Course 72-year-old female with family hx of colon cancer (mother), who was sent by primary care doctor to the emergency room for evaluation of anemia and positive FOBT done as outpatient. 1. 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 -Surgery evaluation appreciated. Plan is eventual colectomy possible splenectomy -We will also have oncology evaluation with . 2. Iron deficient Anemia with rectal bleed 2/2 colon malignancy. H&H stable. -Continue with iron replacement. 3. K.Pneumoniae Urinary tract infection with possible emphysematous cystitis. This possibly explains the CT abdomen and pelvis findings of fluid and air in the urinary bladder along with positive urine culture growing gram-negative rods. Differential is possible colovesicular fistula given the findings of pathology. -Continue Pathak catheter, narrow down antibiotics to Cipro. 4. Hx biliary Pancreatitis, status post ERCP with sphincterotomy and stent placement. -Tentative plan for repeat ERCP with stent removal per GI team. 5. RODRICK on likely CKD. Note patient with long-standing hx of DM put her at risk of DM nephropathy. Renal function stabilizing. -Nephrology on board. -Monitor renal fxn closely-Renally dose meds 6. Essential hypertension -Continue home medications 7. Hypercholesterolemia. -Continue statin. 8. Type 2 diabetes. A1C 8.9. With good control. -Continue Accu-Cheks/ISS/Lantus 9. Diabetic neuropathy. -Continue gabapentin 10. Diabetic foot ulcer, right. Chronic - wound care 11. Peripheral vascular disease, status post left AKA. -Hold aspirin secondary to GI bleed. 12. Constipation. Stable -Stool softeners/ PRN Laxatives. Plan: Follow-up with oncology/surgery recommendation on further management. Follow-up with GI regarding plan for biliary stent removal. GI prophylaxis: PPI Patient was seen in collaboration with Dr. Tinsley Problems: Subjective 24 Hr Interval Summary Free Text/Dictation No acute distress. Denied any rectal bleed. Tolerates diet. Exam/Review of Systems Vital Signs Vitals Vital Signs Date Time Temp Pulse Resp B/P Pulse Ox O2 Delivery O2 Flow Rate FiO2 09/04/17 10:16 70 156/70 09/04/17 07:35 98.3 18 96 08/31/17 18:25 Room Air 08/31/17 10:56 21 Intake and Output 09/03/17 09/03/17 09/04/17 15:00 23:00 07:00 Intake Total 575 ml 1440 ml 1170 ml Output Total 1300 ml 1600 ml Balance 575 ml 140 ml -430 ml Exam General: Well developed,adequately built female, not in any acute distress . HEENT: Normocephalic, Atraumatic, No laceration or hematoma; Eyes: PEERL, Conjunctiva clear, Anicteric sclera Neck: Supple without any lymphadenopathy, nontender, no JVD, no carotid bruits, trachea midline, no thyromegaly Cardiac: S1, S2 auscultated, regular rhythm and rate, no mumurs or gallop Pulmonary: Normal respiratory effort. Chest clear to auscultation bilaterally, no adventitious breath sounds GI: Abdomen normal to inspection. Soft, non tender, non- distended, no masses, no rebound tenderness or guarding. Bowel sounds active on all four quadrants Genitourinary: Denies dysuria/hematuria. Pathak draining clear urine. Extremities: Left AKA. No cyanosis, clubbing, or edema. Pulses [2+] bilaterally. Full ROM on all THREE extremities. No focal weakness appreciated. Neurologic: Alert to person, place, time, and situation. Affect appropriate, intact sensation. Skin: Clean,dry, and intact. No ecchymosis, no rashes, or lesions Results Result Diagram: 09/04/17 0445 09/04/17 0444 Results 24 hrs Laboratory Tests Test 09/03/17 11:42 09/03/17 17:26 09/03/17 17:43 09/03/17 18:04 Bedside Glucose 134 69 L 82 145 Test 09/03/17 21:34 09/04/17 04:44 09/04/17 04:45 09/04/17 08:09 Bedside Glucose 158 99 Sodium Level 146 H Potassium Level 3.9 Chloride Level 113 H Carbon Dioxide Level 26 Anion Gap 11 Blood Urea Nitrogen 10 Creatinine 1.55 H Glucose Level 85 Calcium Level 8.5 Magnesium Level 1.6 L White Blood Count 7.0 # Red Blood Count 3.56 L Hemoglobin 9.6 L Hematocrit 30.7 L Mean Corpuscular Volume 86.2 Mean Corpuscular Hemoglobin 27.0 L Mean Corpuscular Hemoglobin Concent 31.3 L Red Cell Distribution Width 13.5 Platelet Count 381 Mean Platelet Volume 9.8 Neutrophils % 63.4 Lymphocytes % 23.5 Monocytes % 7.8 Eosinophils % 4.6 Basophils % 0.6 Nucleated Red Blood Cells % 0.0 Neutrophils # 4.5 Lymphocytes # 1.7 Monocytes # 0.6 Eosinophils # 0.3 Basophils # 0.0 Nucleated Red Blood Cells # 0.0 Medications Medications Current Medications Ondansetron HCl (Zofran Inj) 4 mg Q6H PRN IV NAUSEA AND/OR VOMITING; Start at 14:00 Acetaminophen (Tylenol Tab) 650 mg Q6H PRN PO PAIN LEVEL 1-3 OR FEVER Last administered on 09/02/17 08:24; Admin Dose 650 MG; Start 08/30/17 at 14:00 Acetaminophen (Tylenol Supp) 650 mg Q6H PRN [place] PAIN LEVEL 1-3 OR FEVER; Start 08/30/17 at 14:00 Morphine Sulfate (morphine) 2 mg Q4H PRN IV SEVERE PAIN LEVEL 7-10; Start at 14:00 Carvedilol (Coreg) 12.5 mg BID PO Last administered on 09/04/17 09:00; Admin Dose 12.5 MG; Start 08/30/17 at 21:00 Gabapentin (Neurontin) 100 mg TID PO Last administered on 09/04/17 09:00; Admin Dose 100 MG; Start 08/30/17 at 21:00 Levetiracetam (Keppra) 500 mg BID PO Last administered on 09/04/17 08:59; Admin Dose 500 MG; Start 08/30/17 at 21:00 Atorvastatin Calcium (Lipitor) 10 mg DAILY@21 PO Last administered on 21:38; Admin Dose 10 MG; Start 08/30/17 at 21:00 Pantoprazole (Protonix Iv) 40 mg BID@06,18 IV Last administered on 09/04/17 05:38; Admin Dose 40 MG; Start 08/30/17 at 18:00 Insulin Glargine (Lantus) 14 unit DAILY@08 SC Last administered on 09/04/17 08:12; Admin Dose 14 UNIT; Start 08/31/17 at 08:00 Diagnostic Test (Pha) (Accu-Chek) 1 ea 02 XX ; Start 08/31/17 at 02:00 Miscellaneous Information 1 ea NOTE XX ; Start 08/30/17 at 14:30 Glucose (Glutose) 15 gm Q15M PRN PO DECREASED GLUCOSE; Start 08/30/17 at 14:30 Glucose (Glutose) 22.5 gm Q15M PRN PO DECREASED GLUCOSE; Start 08/30/17 at 14: 30 Dextrose (D50w Syringe) 25 ml Q15M PRN IV DECREASED GLUCOSE; Start 08/30/17 at 14:30 Dextrose (D50w Syringe) 50 ml Q15M PRN IV DECREASED GLUCOSE Last administered on 08/31/17 15:51; Admin Dose 50 ML; Start 08/30/17 at 14:30 Glucagon (Glucagen) 1 mg Q15M PRN IM DECREASED GLUCOSE; Start 08/30/17 at 14: 30 Glucose (Glutose) 15 gm Q15M PRN BUCCAL DECREASED GLUCOSE; Start 08/30/17 at 14:30 Docusate Sodium (Colace) 100 mg BID PO Last administered on 09/04/17 08:59; Admin Dose 100 MG; Start 08/30/17 at 21:00 Bisacodyl (Dulcolax) 5 mg DAILY PRN PO CONSTIPATION; Start 08/30/17 at 20:00 Hydralazine HCl 10 mg 10 mg Q4H PRN IV ELEVATED BLOOD PRESSURE Last administered on 09/02/17 03:17; Admin Dose 10 MG; Start 09/02/17 at 03:30 Piperacillin Sod/ Tazobactam Sod (Zosyn 3.375gm/ 100 ml (Pmx)) 100 ml @ 200 mls /hr Q8 IVPB Last administered on 09/04/17 05:37; Admin Dose 200 MLS/HR; Start 09/02/17 at 14:00 Losartan Potassium (Cozaar) 50 mg DAILY PO Last administered on 09/04/17 09: 00; Admin Dose 50 MG; Start 09/03/17 at 09:00 BERNARD PYLE NP Sep 04, 2017 10:48
[2017-09-04] MEDS ORDERED: MAGNESIUM SULFATE 2 GM/50 ML 50 ML IVPB ONE (12:00)
[2017-09-04 13:51] VITALS: BP 149/70; RESP 18
--- NOTE | 2017-09-04 14:24 | PN ---
Date/Time of Note Date/Time of Note DATE: 09/04/17 TIME: 14:22 Assessment/Plan VTE Prophylaxis VTE Prophylaxis Intervention: SCD's Lines/Catheters IV Catheter Type (from Nrs): Peripheral IV Urinary Cath still in place: Yes Reason Cath still needed: other (indicate) (moniotr output) Assessment/Plan Chief Complaint/Hosp Course Summary Assessment and Plan: Assessment: Anemia-hypochromic Positive FOBT (outpatient) Colonoscopy Large semicircumferential malignant mass mid ascending colon. Multiple biopsies obtained. Localization tattoo applied. Moderate-sized internal hemorrhoids Otherwise normal colonoscopy to cecum Plan: Advance diet as tolerated Continue to monitor H/H Patient seen in collaboration with Subjective: Course reviewed with nursing staff Patient interviewed and examined All labs, imaging and other results reviewed Pt currently stable denies abd pain, nausea, or vomiting. Monica family at bedside- plan for possible surgery in near future Late entry: Pt to f/u with GI as outpatient- for stent removal PHYSICAL EXAMINATION: GENERAL: Well developed, well nourished, alert & oriented x 3, in no acute distress SKIN: No lesions, no stigmata chronic liver disease, no evidence of bleeding diathesis LYMPHATIC: No palpable lymphadenopathy. HEAD: Normocephalic, atraumatic, no tenderness. EYES: Pupils equal reactive to light and accommodation, full extraocular movements, sclera clear, non-icteric, no discharge. EARS/NOSE AND THROAT: Ears normal, nose normal, oropharynx normal, oral membranes well hydrated without lesions. NECK: Supple, no masses, thyroid normal, JVP within normal limits, carotids normal without bruits. CHEST: Inspection within normal limits. CARDIOVASCULAR: Heart: Regular rate and rhythm, no murmurs, gallops or rubs. Peripheral pulses present within normal limits, no cyanosis, clubbing or edemas. No pulsatile abdominal mass RESPIRATORY: Lungs clear to auscultation and percussion, no wheezing, no rubs GASTROINTESTINAL AND LIVER: Abdomen: Soft, non tenderness, non-distended, no hernias, no masses, no organomegaly, no ascites, no guarding, no rebound tenderness, normoactive bowel sounds. Rectal: Deferred. GENITOURINARY: Female genitalia within normal limits. EXTREMITIES: No cyanosis, clubbing or edema. Problems: Exam/Review of Systems Vital Signs Vitals Vital Signs Date Time Temp Pulse Resp B/P Pulse Ox O2 Delivery O2 Flow Rate FiO2 09/04/17 13:51 98.3 78 18 149/70 96 08/31/17 18:25 Room Air 08/31/17 10:56 21 Intake and Output 09/03/17 09/03/17 09/04/17 15:00 23:00 07:00 Intake Total 575 ml 1440 ml 1170 ml Output Total 1300 ml 1600 ml Balance 575 ml 140 ml -430 ml Results Result Diagram: 09/04/17 0445 09/04/17 0444 Results 24 hrs Laboratory Tests Test 09/03/17 17:26 09/03/17 17:43 09/03/17 18:04 09/03/17 21:34 Bedside Glucose 69 L 82 145 158 Test 09/04/17 04:44 09/04/17 04:45 09/04/17 08:09 09/04/17 11:50 Sodium Level 146 H Potassium Level 3.9 Chloride Level 113 H Carbon Dioxide Level 26 Anion Gap 11 Blood Urea Nitrogen 10 Creatinine 1.55 H Glucose Level 85 Calcium Level 8.5 Magnesium Level 1.6 L White Blood Count 7.0 # Red Blood Count 3.56 L Hemoglobin 9.6 L Hematocrit 30.7 L Mean Corpuscular Volume 86.2 Mean Corpuscular Hemoglobin 27.0 L Mean Corpuscular Hemoglobin Concent 31.3 L Red Cell Distribution Width 13.5 Platelet Count 381 Mean Platelet Volume 9.8 Neutrophils % 63.4 Lymphocytes % 23.5 Monocytes % 7.8 Eosinophils % 4.6 Basophils % 0.6 Nucleated Red Blood Cells % 0.0 Neutrophils # 4.5 Lymphocytes # 1.7 Monocytes # 0.6 Eosinophils # 0.3 Basophils # 0.0 Nucleated Red Blood Cells # 0.0 Bedside Glucose 99 118 Medications Medications Current Medications Ondansetron HCl (Zofran Inj) 4 mg Q6H PRN IV NAUSEA AND/OR VOMITING; Start at 14:00 Acetaminophen (Tylenol Tab) 650 mg Q6H PRN PO PAIN LEVEL 1-3 OR FEVER Last administered on 09/02/17t 08:24; Admin Dose 650 MG; Start 08/30/17 at 14:00 Acetaminophen (Tylenol Supp) 650 mg Q6H PRN [place] PAIN LEVEL 1-3 OR FEVER; Start 08/30/17 at 14:00 Morphine Sulfate (morphine) 2 mg Q4H PRN IV SEVERE PAIN LEVEL 7-10; Start at 14:00 Carvedilol (Coreg) 12.5 mg BID PO Last administered on 09/04/17 09:00; Admin Dose 12.5 MG; Start 08/30/17 at 21:00 Gabapentin (Neurontin) 100 mg TID PO Last administered on 09/04/17 12:35; Admin Dose 100 MG; Start 08/30/17 at 21:00 Levetiracetam (Keppra) 500 mg BID PO Last administered on 09/04/17 08:59; Admin Dose 500 MG; Start 08/30/17 at 21:00 Atorvastatin Calcium (Lipitor) 10 mg DAILY@21 PO Last administered on 21:38; Admin Dose 10 MG; Start 08/30/17 at 21:00 Pantoprazole (Protonix Iv) 40 mg BID@06,18 IV Last administered on 09/04/17 05:38; Admin Dose 40 MG; Start 08/30/17 at 18:00 Insulin Glargine (Lantus) 14 unit DAILY@08 SC Last administered on 09/04/17 08:12; Admin Dose 14 UNIT; Start 08/31/17 at 08:00 Diagnostic Test (Pha) (Accu-Chek) 1 ea 02 XX ; Start 08/31/17 at 02:00 Miscellaneous Information 1 ea NOTE XX ; Start 08/30/17 at 14:30 Glucose (Glutose) 15 gm Q15M PRN PO DECREASED GLUCOSE; Start 08/30/17 at 14:30 Glucose (Glutose) 22.5 gm Q15M PRN PO DECREASED GLUCOSE; Start 08/30/17 at 14: 30 Dextrose (D50w Syringe) 25 ml Q15M PRN IV DECREASED GLUCOSE; Start 08/30/17 at 14:30 Dextrose (D50w Syringe) 50 ml Q15M PRN IV DECREASED GLUCOSE Last administered on 08/31/17 15:51; Admin Dose 50 ML; Start 08/30/17 at 14:30 Glucagon (Glucagen) 1 mg Q15M PRN IM DECREASED GLUCOSE; Start 08/30/17 at 14: 30 Glucose (Glutose) 15 gm Q15M PRN BUCCAL DECREASED GLUCOSE; Start 08/30/17 at 14:30 Docusate Sodium (Colace) 100 mg BID PO Last administered on 09/04/17 08:59; Admin Dose 100 MG; Start 08/30/17 at 21:00 Bisacodyl (Dulcolax) 5 mg DAILY PRN PO CONSTIPATION; Start 08/30/17 at 20:00 Hydralazine HCl (Apresoline) 10 mg Q4H PRN IV ELEVATED BLOOD PRESSURE Last administered on 09/02/17 03:17; Admin Dose 10 MG; Start 09/02/17 at 03:30 Losartan Potassium 50 mg 50 mg DAILY PO Last administered on 09/04/17 09:00; Admin Dose 50 MG; Start 09/03/17 at 09:00 Ciprofloxacin/ Dextrose (Cipro Ivpb) 200 ml @ 200 mls/hr Q12 IVPB ; Start at 21:00 EFRAIN CADENA Sep 04, 2017 14:24
--- NOTE | 2017-09-04 14:58 | PN ---
Date/Time of Note Date/Time of Note DATE: 09/04/17 TIME: 14:41 Assessment/Plan Lines/Catheters IV Catheter Type (from [facility]): Peripheral IV Pathak in Place (from [facility]): Yes Assessment/Plan Chief Complaint/Hosp Course 1. Right colonic adenocarcinoma. Enlarged lymph node. Questionable splenic mass/metastasis -pending oncology for evaluation -Will need eventual colectomy possible splenectomy (consider PET/CT to evaluate the splenic lesion) -Medical optimization -GI optimization (removal of biliary stent) 2. Biliary stent with biliary ductal dilatation and pericholecystic fluid. History of gallstone pancreatitis. -As above -Will need eventual surgery for gallbladder as well 3. Anemia secondary to lower GI bleed secondary to right colonic adenocarcinoma : no acute bleed -As above -Transfuse as needed 4. Diabetes -Diet and medication optimization 5. Hypertension -Diet and medication optimization 6. Hypercholesterolemia -Diet and medication optimization 7. Atherosclerotic cardiovascular disease with peripheral vascular disease -Cardiac medical optimization. Patient at high risk for surgical intervention 8. Electrolyte imbalance -Correct prior to any surgical intervention 9. UTI: +urine cultures -abx per sensitivity -frequent bladder emptying/cath care Thank you. Patient seen and examined in collaboration with Dr. Maximo Matos. Problems: Subjective 24 Hr Interval Summary Feels well. No c/o abdominal pain or discomfort. No fevers, chills, sob, congested cough, cp, palpitations, carrasco, dizziness, n/v/d/dysuria. Tolerating diet. +bowel function Exam/Review of Systems Vital Signs Vitals Vital Signs Date Time Temp Pulse Resp B/P Pulse Ox O2 Delivery O2 Flow Rate FiO2 09/04/17 13:51 98.3 78 18 149/70 96 08/31/17 18:25 Room Air 08/31/17 10:56 21 Intake and Output 09/03/17 09/03/17 09/04/17 15:00 23:00 07:00 Intake Total 575 ml 1440 ml 1170 ml Output Total 1300 ml 1600 ml Balance 575 ml 140 ml -430 ml Exam Free Text/Dictation Constitutional: alert, No distress Psych: nl mood/affect, No anxiety Head: atraumatic, normocephalic Eyes: EOMI, PERRL, nl conjunctiva, No icteric ENMT: mucosa pink and moist, nl external ears & nose, nl lips & teeth Neck: non-tender, supple, No jvd Respiratory: normal air movement, No congested cough, No labored breathing Cardiovascular: regular rate and rhythm, No edema Gastrointestinal: non-tender, soft, No distended, No rebound or guarding Musculoskeletal: nl extremities to inspection, nl gait and stance, No joint tenderness Extremities: normal pulses, No calf tenderness, No cyanosis, No edema Neurological: nl mental status, nl speech, nl strength, No confused Skin: nl turgor, No diaphoresis, No rash or lesions Lymph: nl lymph nodes Results Result Diagram: 09/04/17 0445 09/04/17 0444 NISA LAYNE NP Sep 04, 2017 14:51
[2017-09-04 20:06] VITALS: BP 189/88; RESP 18
[2017-09-04] MEDS: CIPROFLOXACIN 400MG/D5W 200 ML IVPB SCH (21:39)
[2017-09-04] MEDS: ATORVASTATIN 10 MG TAB PO SCH (21:40)
[2017-09-04 22:05] VITALS: BP 176/79; PULSE 78
[2017-09-05 01:45] VITALS: BP 176/81; RESP 17
[2017-09-05] MEDS: ACCU-CHEK XX SCH (02:00)
[2017-09-05] MEDS: hydrALAzine 20 MG INJ IV PRN (02:47)
[2017-09-05] MEDS: ACETAMINOPHEN 325 MG TAB PO PRN (04:19)
[2017-09-05 04:28] VITALS: BP 163/71; PULSE 80
[2017-09-05] MEDS: PANTOPRAZOLE 40 MG INJ IV SCH (05:18)
[2017-09-05] MEDS: INSULIN ASPART [NOVOLOG] 3 ML PEN SC SCH ×2 (08:08→11:50)
[2017-09-05] MEDS: INSULIN GLARGINE [LANtus] 3 ML PEN SC SCH (08:08)
[2017-09-05 08:24] VITALS: BP 133/59; RESP 18
[2017-09-05] MEDS: DOCUSATE SODIUM 100 MG CAP PO SCH (09:00)
[2017-09-05] MEDS: CIPROFLOXACIN 400MG/D5W 200 ML IVPB SCH (09:12)
[2017-09-05] MEDS: GABAPENTIN 100 MG CAP PO SCH ×2 (09:12→12:22)
[2017-09-05] MEDS: LEVETIRACETAM 500 MG TAB PO SCH (09:13)
[2017-09-05] MEDS: LOSARTAN 50 MG TAB PO SCH (09:13)
--- NOTE | 2017-09-05 11:08 | PN ---
Date/Time of Note Date/Time of Note DATE: 09/05/17 TIME: 10:59 Assessment/Plan VTE Prophylaxis VTE Prophylaxis Intervention: ambulation Lines/Catheters IV [facility] ([facility] Saline Lock Urinary Cath still in place: No Assessment/Plan Chief Complaint/Hosp Course 72-year-old female with family hx of colon cancer (mother), who was sent by primary care doctor to the emergency room for evaluation of anemia and positive FOBT done as outpatient. 1. 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 -Surgery /oncology evaluation appreciated. Recommendation is outpatient PET scan to determine whether tumor had mets to other organs and determine whether patient can be benefited from surgical approach versus chemotherapy. -Case management for arranging authorization for PET scan as outpatient and outpatient follow-up with Dr. Matos and Dr. Sánchez. 2. Iron deficient Anemia with rectal bleed 2/2 colon malignancy. H&H stable. -Continue with iron replacement. 3. K.Pneumoniae Urinary tract infection with possible emphysematous cystitis. This possibly explains the CT abdomen and pelvis findings of fluid and air in the urinary bladder along with positive urine culture growing gram-negative rods. Differential is possible colovesicular fistula given the findings of pathology. -Change antibiotic to oral Cipro 5 more days. DC Pathak. 4. Hx biliary Pancreatitis, status post ERCP with sphincterotomy and stent placement. -Needs ERCP with stent removal with GI team-outpatient prior to any surgery. 5. RODRICK on likely CKD. Note patient with long-standing hx of DM put her at risk of DM nephropathy. Renal function stabilized. -Nephrology on board-needs outpt follow-up. -Monitor renal fxn closely-Renally dose meds 6. Essential hypertension -Continue home medications 7. Hypercholesterolemia. -Continue statin. 8. Type 2 diabetes. A1C 8.9. With good control. -Continue Accu-Cheks/ISS/Lantus 9. Diabetic neuropathy. -Continue gabapentin 10. Diabetic foot ulcer, right. Chronic - wound care 11. Peripheral vascular disease, status post left AKA. -Hold aspirin secondary to GI bleed. 12. Constipation. Stable -Stool softeners/ PRN Laxatives. Plan: Discharge planning with outpatient PET scan and outpatient follow-up with // and . GI prophylaxis: PPI Patient was seen in collaboration with Dr. Tinsley Problems: Subjective 24 Hr Interval Summary Free Text/Dictation Patient doing well. She denied any rectal bleed. Tolerates diet. Denies any further urinary discomfort. Afebrile. Exam/Review of Systems Vital Signs Vitals Vital Signs Date Time Temp Pulse Resp B/P Pulse Ox O2 Delivery O2 Flow Rate FiO2 09/05/17 08:24 97.8 78 18 133/59 96 Intake and Output 09/04/17 09/04/17 09/05/17 15:00 23:00 07:00 Intake Total 250 ml 1000 ml 240 ml Output Total 1000 ml 1100 ml Balance 250 ml 0 ml -860 ml Exam General: Well developed,adequately built female, not in any acute distress . HEENT: Normocephalic, Atraumatic, No laceration or hematoma; Eyes: PEERL, Conjunctiva clear, Anicteric sclera Neck: Supple without any lymphadenopathy, nontender, no JVD, no carotid bruits, trachea midline, no thyromegaly Cardiac: S1, S2 auscultated, regular rhythm and rate, no mumurs or gallop Pulmonary: Normal respiratory effort. Chest clear to auscultation bilaterally, no adventitious breath sounds GI: Abdomen normal to inspection. Soft, non tender, non- distended, no masses, no rebound tenderness or guarding. Bowel sounds active on all four quadrants Genitourinary: Denies dysuria/hematuria. Pathak draining clear urine. Extremities: Left AKA. No cyanosis, clubbing, or edema. Pulses [2+] bilaterally. Full ROM on all THREE extremities. No focal weakness appreciated. Neurologic: Alert to person, place, time, and situation. Affect appropriate, intact sensation. Skin: Clean,dry, and intact. No ecchymosis, no rashes, or lesions Results Result Diagram: 09/05/17 0501 09/05/17 0501 Results 24 hrs Laboratory Tests Test 09/04/17 11:50 09/04/17 17:38 09/04/17 18:05 09/04/17 18:19 Bedside Glucose 118 64 L 105 112 Test 09/04/17 21:36 09/05/17 05:01 09/05/17 08:05 Bedside Glucose 136 178 White Blood Count 11.0 #H Red Blood Count 3.76 L Hemoglobin 10.0 L Hematocrit 32.6 L Mean Corpuscular Volume 86.7 Mean Corpuscular Hemoglobin 26.6 L Mean Corpuscular Hemoglobin Concent 30.7 L Red Cell Distribution Width 13.7 Platelet Count 380 Mean Platelet Volume 9.7 Neutrophils % 72.5 Lymphocytes % 16.7 Monocytes % 6.4 Eosinophils % 3.5 Basophils % 0.4 Nucleated Red Blood Cells % 0.0 Neutrophils # 8.0 H Lymphocytes # 1.8 Monocytes # 0.7 Eosinophils # 0.4 Basophils # 0.0 Nucleated Red Blood Cells # 0.0 Sodium Level 143 Potassium Level 3.7 Chloride Level 108 Carbon Dioxide Level 23 Anion Gap 16 Blood Urea Nitrogen 9 Creatinine 1.25 H Glucose Level 135 # Calcium Level 8.0 L Magnesium Level 1.8 Medications Medications Current Medications Ondansetron HCl (Zofran Inj) 4 mg Q6H PRN IV NAUSEA AND/OR VOMITING; Start at 14:00 Acetaminophen (Tylenol Tab) 650 mg Q6H PRN PO PAIN LEVEL 1-3 OR FEVER Last administered on 09/05/17 04:19; Admin Dose 650 MG; Start 08/30/17 at 14:00 Acetaminophen (Tylenol Supp) 650 mg Q6H PRN [place] PAIN LEVEL 1-3 OR FEVER; Start 08/30/17 at 14:00 Morphine Sulfate (morphine) 2 mg Q4H PRN IV SEVERE PAIN LEVEL 7-10; Start at 14:00 Carvedilol (Coreg) 12.5 mg BID PO Last administered on 09/05/17 09:13; Admin Dose 12.5 MG; Start 08/30/17 at 21:00 Gabapentin (Neurontin) 100 mg TID PO Last administered on 09/05/17 09:12; Admin Dose 100 MG; Start 08/30/17 at 21:00 Levetiracetam (Keppra) 500 mg BID PO Last administered on 09/05/17 09:13; Admin Dose 500 MG; Start 08/30/17 at 21:00 Atorvastatin Calcium (Lipitor) 10 mg DAILY@21 PO Last administered on 21:40; Admin Dose 10 MG; Start 08/30/17 at 21:00 Pantoprazole (Protonix Iv) 40 mg BID@,18 IV Last administered on 09/05/17 05 :18; Admin Dose 40 MG; Start 08/30/17 at 18:00 Insulin Glargine (Lantus) 14 unit DAILY@08 SC Last administered on 09/05/17 08 :08; Admin Dose 14 UNIT; Start 08/31/17 at 08:00 Diagnostic Test (Pha) (Accu-Chek) 1 ea 02 XX ; Start 08/31/17 at 02:00 Miscellaneous Information 1 ea NOTE XX ; Start 08/30/17 at 14:30 Glucose (Glutose) 15 gm Q15M PRN PO DECREASED GLUCOSE; Start 08/30/17 at 14:30 Glucose (Glutose) 22.5 gm Q15M PRN PO DECREASED GLUCOSE; Start 08/30/17 at 14: 30 Dextrose (D50w Syringe) 25 ml Q15M PRN IV DECREASED GLUCOSE; Start 08/30/17 at 14:30 Dextrose (D50w Syringe) 50 ml Q15M PRN IV DECREASED GLUCOSE Last administered on 08/31/17 15:51; Admin Dose 50 ML; Start 08/30/17 at 14:30 Glucagon (Glucagen) 1 mg Q15M PRN IM DECREASED GLUCOSE; Start 08/30/17 at 14: 30 Glucose (Glutose) 15 gm Q15M PRN BUCCAL DECREASED GLUCOSE; Start 08/30/17 at 14:30 Docusate Sodium (Colace) 100 mg BID PO Last administered on 09/04/17 21:40; Admin Dose 100 MG; Start 08/30/17 at 21:00 Bisacodyl (Dulcolax) 5 mg DAILY PRN PO CONSTIPATION; Start 08/30/17 at 20:00 Hydralazine HCl (Apresoline) 10 mg Q4H PRN IV ELEVATED BLOOD PRESSURE Last administered on 09/05/17 02:47; Admin Dose 10 MG; Start 09/02/17 at 03:30 Losartan Potassium 50 mg 50 mg DAILY PO Last administered on 09/05/17 09:13; Admin Dose 50 MG; Start 09/03/17 at 09:00 Ciprofloxacin/ Dextrose (Cipro Ivpb) 200 ml @ 200 mls/hr Q12 IVPB Last administered on 09/05/17 09:12; Admin Dose 200 MLS/HR; Start 09/04/17 at 21:00 BERNARD PYLE NP Sep 05, 2017 11:08
--- NOTE | 2017-09-05 11:08 | PN ---
Date/Time of Note Date/Time of Note DATE: 09/05/17 TIME: 11:00 Assessment/Plan Lines/Catheters IV Catheter Type (from [facility] [place]): Saline Lock Pathak in Place (from [facility] [place]): Yes Assessment/Plan Chief Complaint/Hosp Course 1. Right colonic adenocarcinoma. Enlarged lymph node. Questionable splenic mass/metastasis -per oncology will need PET scan prior to surgical intervention -Will need eventual colectomy possible splenectomy- to be scheduled outpatient after PET scan -Medical optimization -GI optimization (removal of biliary stent) 2. Biliary stent with biliary ductal dilatation and pericholecystic fluid. History of gallstone pancreatitis. -As above -Will need eventual surgery for gallbladder as well 3. Anemia secondary to lower GI bleed secondary to right colonic adenocarcinoma : no acute bleed -As above -Transfuse as needed 4. Diabetes -Diet and medication optimization 5. Hypertension -Diet and medication optimization 6. Hypercholesterolemia -Diet and medication optimization 7. Atherosclerotic cardiovascular disease with peripheral vascular disease -Cardiac medical optimization. Patient at high risk for surgical intervention 8. Electrolyte imbalance -Correct prior to any surgical intervention 9. UTI: +urine cultures -abx per sensitivity -frequent bladder emptying/cath care Thank you. Patient seen and examined in collaboration with Dr. Maximo Matos. Problems: Subjective 24 Hr Interval Summary Feels well. Tolerating diet. No c/o abdominal pain/discomfort. No fevers, chills , sob, congested cough, n/v/d/dysuria, carrasco, dizziness cp, palpitations. Exam/Review of Systems Vital Signs Vitals Vital Signs Date Time Temp Pulse Resp B/P Pulse Ox O2 Delivery O2 Flow Rate FiO2 09/05/17 08:24 97.8 78 18 133/59 96 Intake and Output 09/04/17 09/04/17 09/05/17 15:00 23:00 07:00 Intake Total 250 ml 1000 ml 240 ml Output Total 1000 ml 1100 ml Balance 250 ml 0 ml -860 ml Exam Free Text/Dictation Constitutional: alert, No distress Psych: nl mood/affect, No anxiety Head: atraumatic, normocephalic Eyes: EOMI, PERRL, nl conjunctiva, No icteric ENMT: mucosa pink and moist, nl external ears & nose, nl lips & teeth Neck: non-tender, supple, No jvd Respiratory: normal air movement, No congested cough, No labored breathing Cardiovascular: regular rate and rhythm, No edema Gastrointestinal: non-tender, soft, No distended, No rebound or guarding Musculoskeletal: nl extremities to inspection, nl gait and stance, No joint tenderness Extremities: normal pulses, No calf tenderness, No cyanosis, No edema Neurological: nl mental status, nl speech, nl strength, No confused Skin: nl turgor, No diaphoresis, No rash or lesions Lymph: nl lymph nodes Results Result Diagram: 09/05/17 0501 09/05/17 0501 NISA LAYNE NP Sep 05, 2017 11:08
--- NOTE | 2017-09-05 11:14 | PDOCDIS ---
Discharge Instructions CONDITION Patient Condition: Stable HOME CARE INSTRUCTIONS: Special Diet: SOFT ,CARB CONTROL FOLLOW UP/APPOINTMENTS Follow-up Plan 1.Follow-up with (Oncologist) in 2-3 days [id number] [facility] [address] [place] [address] Office 2.Follow-up with (Surgeon)in 1 week [id number] [facility] [address] [place] [address] Office 3.Follow-up with (Ems Educator) in 1 week [id number] [facility] [place] [address] Office 4.Follow-up with (Kidney doctor) in 1 week [id number] [facility] [address] [place] [address] Office 5.Follow up with primary care physician in 1 week If you don't have one please let someone know, we can give you resources that may help you pick one. You may also call your insurance company to assign one to you. Review your medication list with your nurse before leaving and if you need new prescriptions please let your nurse know. I may have made changes to your home medications or given you new prescriptions, please let your primary doctor know as well. Stay compliant with your medications and report any side effects to your PCP or pharmacist. Return to the ER if you have any concerns and cannot reach your doctors or call your insurance company, they usually have a nurse that can help you. 6. Call 911 or go to the nearest emergency room if experiencing loss of consciousness, dizziness, chest pain, shortness of breath, vomiting/abdominal pain, speech difficulties, motor weakness or any unusual symptoms. BERNARD PYLE NP Sep 05, 2017 11:14
--- NOTE | 2017-09-05 11:14 | PDOCDIS ---
Discharge Instructions CONDITION Patient Condition: Stable HOME CARE INSTRUCTIONS: Special Diet: SOFT ,CARB CONTROL FOLLOW UP/APPOINTMENTS Follow-up Plan 1.Follow-up with (Oncologist) in 2-3 days [id number] [facility] [address] [place] [address] Office 2.Follow-up with (Surgeon)in 1 week [id number] [facility] [address] [place] [address] Office 3.Follow-up with (Lehr Operator) in 1 week [address] [facility] [place] [address] Office 4.Follow-up with (Kidney doctor) in 1 week [id number] [facility] [address] [place] [address] Office 5.Follow up with primary care physician in 1 week If you don't have one please let someone know, we can give you resources that may help you pick one. You may also call your insurance company to assign one to you. Review your medication list with your nurse before leaving and if you need new prescriptions please let your nurse know. I may have made changes to your home medications or given you new prescriptions, please let your primary doctor know as well. Stay compliant with your medications and report any side effects to your PCP or pharmacist. Return to the ER if you have any concerns and cannot reach your doctors or call your insurance company, they usually have a nurse that can help you. 6. Call 911 or go to the nearest emergency room if experiencing loss of consciousness, dizziness, chest pain, shortness of breath, vomiting/abdominal pain, speech difficulties, motor weakness or any unusual symptoms. BERNARD PYLE NP Sep 05, 2017 11:14
--- NOTE | 2017-09-05 11:14 | PDOCDIS ---
Discharge Instructions CONDITION Patient Condition: Stable HOME CARE INSTRUCTIONS: Special Diet: SOFT ,CARB CONTROL FOLLOW UP/APPOINTMENTS Follow-up Plan 1.Follow-up with (Oncologist) in 2-3 days [id number] [facility] [address] [place] [address] Office 2.Follow-up with (Surgeon)in 1 week [id number] [facility] [address] [place] [address] Office 3.Follow-up with (Level Glass Forming Machine Operator) in 1 week [address] [facility] [place] [address] Office 4.Follow-up with (Kidney doctor) in 1 week [id number] [facility] [address] [place] [address] Office 5.Follow up with primary care physician in 1 week If you don't have one please let someone know, we can give you resources that may help you pick one. You may also call your insurance company to assign one to you. Review your medication list with your nurse before leaving and if you need new prescriptions please let your nurse know. I may have made changes to your home medications or given you new prescriptions, please let your primary doctor know as well. Stay compliant with your medications and report any side effects to your PCP or pharmacist. Return to the ER if you have any concerns and cannot reach your doctors or call your insurance company, they usually have a nurse that can help you. 6. Call 911 or go to the nearest emergency room if experiencing loss of consciousness, dizziness, chest pain, shortness of breath, vomiting/abdominal pain, speech difficulties, motor weakness or any unusual symptoms. BERNARD PYLE NP Sep 05, 2017 11:14
[2017-09-05] MEDS ORDERED: CIPR500T4 PO (11:22)
[2017-09-05] MEDS ORDERED: HYDR-906 PO (11:22)
[2017-09-05] MEDS ORDERED: BISA5TAB6 PO (11:22)
[2017-09-05] MEDS ORDERED: DOCU-216 PO (11:22)
[2017-09-05] MEDS ORDERED: FER325 PO (11:28)
--- NOTE | 2017-09-05 11:29 | DS ---
Date/Time of Note Date/Time of Note DATE: 09/05/17 TIME: 11:29 Discharge Summary Admission/Discharge Info Admit Date/Time Aug 30, 2017 at 10:29 Discharge Date/Time Discharge Diagnosis 1. 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 Needs outpatient PET scan and follow-up with and Dr. Matos. 2. Iron deficient Anemia with rectal bleed 2/2 colon malignancy. 3. K.Pneumoniae Urinary tract infection with possible emphysematous cystitis. 4. Hx biliary Pancreatitis, status post ERCP with sphincterotomy and stent placement. Needs biliary stent removal as outpatient with . 5. RODRICK on likely CKD. Note patient with long-standing hx of DM put her at risk of DM nephropathy. Renal function stabilized. 6. Essential hypertension 7. Hypercholesterolemia. 8. Type 2 diabetes. A1C 8.9. 9. Diabetic neuropathy. 10. Diabetic foot ulcer, right. Chronic 11. Peripheral vascular disease, status post left AKA. 12. Constipation. Consults , oncology , gastroenterology Dr. Matos, surgery Procedures 08/31/2017. Colonoscopy. Impression: Large semicircumferential malignant mass mid ascending colon. Multiple biopsies obtained. Localization tattoo applied. Moderate-sized internal hemorrhoids Otherwise normal colonoscopy to cecum 09/01/2017. CT abdomen and pelvis with IV contrast. IMPRESSION: 1. A mass is identified in the ascending colon extending from just above the cecum to just below the hepatic flexure. It measures between 4.7 and 6.7 cm in length. Invasion of tumor into the serosa may be present. 2. Interval development of a 8.5 mm lesion in the spleen. Splenic metastasis must be considered. Consider PET CT scan for further evaluation. 3. Pericholecystic fluid. 4. Moderate intrahepatic and extrahepatic biliary ductal dilatation. Biliary stent extending from the level of the common hepatic duct to the duodenum. 5. Renal cortical scarring with a 4 mm subcapsular benign cyst in the dorsal midpole of the right kidney. 6. Benign hemangioma in the right side of L3. 7. Retroverted uterus. 8. The urinary bladder contains fluid and air. Etiology unclear. Clinical correlation is needed. 9. Vascular stent in the left inguinal area unchanged compared to 01/14/2016. Hx of Present Illness This is a 72-year-old female with a past medical history of hypertension, hypercholesterolemia, type 2 diabetes, iron deficiency anemia,atherosclerosis, left AKA, Pancreatitis with status post ERCP with sphincterotomy and stent placement, who was sent by patient's primary care doctor for evaluation of anemia with rectal bleed/positive FOBT. Patient denied any visible melena, hematochezia, or hematemesis,unintentional weight loss or poor appetitive. However, she reported that she has been tested for positive occult blood before and her mother of colon cancer. Patient also takes aspirin and iron at home. She is also constipated. Patient denied nausea, vomiting, abdominal pain , loss of appetite, dysuria, hematuria, hemoptysis, cough, chest pain, palpitation, shortness of breath or other constitutional symptoms. Patient denied fever or chills. She denied any hx of cancer.She never had colonoscopy or endoscopy. In the emergency room, patient's hemoglobin was 8.1, hematocrit 26.6, potassium 5.6, BUN 44, and creatinine 2.12. Patient was given 30 g Kayexalate in the emergency room. There is no repeat potassium available at this time. Hospital Course A gastroenterology consultation was called for considering patient for colonoscopy in-house as there was suspicion for colon malignancy with outpatient positive FOBT as well as family history. She was continued on iron supplements. H&H remained stable. Patient did not have any rectal bleed in- house. Her stool OB was also negative. Patient was also seen by electronics warfare technician for underlying CKD. Her renal function remained at baseline. Hyperkalemia resolved. Patient was continued on insulin for underlying diabetes. She was also continued on her home medications for hypertension and hypercholesterolemia. Patient was then evaluated by career services coordinator. On , patient had undergone colonoscopy with the findings of Large semicircumferential malignant mass mid ascending colon and moderate-sized internal hemorrhoids. A CT abdomen and pelvis with IV contrast showed 4.7 and 6.7 cm in length mass in the ascending colon extending from just above the cecum to just below the hepatic flexure with interval development of a 8.5 mm lesion in the spleen with possible Splenic metastasis. Pathology was positive for moderately well-differentiated adenocarcinoma. Patient was evaluated by surgery and oncology services. Recommendation is outpatient PET scan to determine whether tumor had mets to other organs and determine whether patient can be benefited from surgical approach versus chemotherapy. CT abdomen and pelvis also suggestive of some fluid and air in the urinary bladder . Patient was also noted with Klebsiella pneumoniae urinary tract infection and this is the most likely culprit of CT findings of possible emphysematous cystitis. This was treated with IV antibiotics and Pathak cath insertion. Patient did not have any further urinary symptoms of dysuria, hematuria or urgency or retention. At this time, there is no further workup indicated for this. Patient was feeling back to her baseline. She was able to tolerate diet and activities well. At this time, as per surgery and oncology recommendation, best recommendation is to discharge patient home with outpatient PET scan and outpatient surgery and oncology follow-up. Patient was also recommended to follow-up with gastroenterology as she also needs to have biliary stent removed prior to any further surgical intervention for her underlying colon cancer. Patient and family verbalized discharge instructions. At this time I would like to thank Dr. Sánchez, Dr. Matos, Dr. Nevarez and for seeing the patient, providing medical recommendation and performing appropriate procedures on this patient. Patient was seen in collaboration with . Approximately 60 minutes was spent in coordinating the discharge on this patient. Home Meds Active Scripts Ferrous Sulfate* (Ferrous Sulfate*) 325 Mg Tabec, 325 MG PO BID, #60 TAB Prov:PYLE,BERNARD V. GATE AGENT 09/05/17 Hydrocodone/Acetaminophen ([place] 5-325 Tablet) 1 Each Tablet, 1 EACH PO Q6H for PAIN, #30 TAB Prov:PYLE,BERNARD V. GATE AGENT 09/05/17 Ciprofloxacin Hcl* (Ciprofloxacin Hcl*) 500 Mg Tablet, 500 MG PO BID, #10 TAB Prov:PYLE,BERNARD V. GATE AGENT 09/05/17 Bisacodyl* (Bisacodyl*) 5 Mg Tablet., 5 MG PO DAILY Y for CONSTIPATION, #30 TAB Prov:PYLE,BERNARD V. GATE AGENT 09/05/17 Docusate Sodium (Dok) 100 Mg Capsule, 100 MG PO BID, #60 CAP Prov:PYLE,BERNARD V. GATE AGENT 09/05/17 Reported Medications Omeprazole* (Omeprazole*) 20 Mg Capsule., 20 MG PO DAILY, #30 CAP 08/30/17 Losartan Potassium* (Losartan Potassium*) 25 Mg Tablet, 25 MG PO DAILY, TAB 08/30/17 Simvastatin* (Zocor*) 10 Mg Tablet, 10 MG PO QHS, #30 TAB 08/30/17 Insulin Glargine/Lixisenatide (Soliqua 100 Unit-33 Mcg/ml Pen) 3 Ml Insuln.pen, 20 UNITS SQ DAILY 08/30/17 Carvedilol* (Coreg*) 12.5 Mg Tablet, 12.5 MG PO BID, #60 TAB 08/30/17 Aspirin* (Aspirin* EC) 81 Mg Tablet.dr, 81 MG PO DAILY, TAB 08/30/17 Gabapentin* (Gabapentin*) 100 Mg Capsule, 100 MG PO TID, #90 CAP 01/14/16 Levetiracetam* (Levetiracetam*) 500 Mg Tablet, 500 MG PO BID, TAB 06/13/15 Discontinued Reported Medications Levetiracetam* (Keppra*) 500 Mg Tablet, 500 MG PO BID, TAB 08/30/17 Amlodipine Besylate* (Norvasc*) 5 Mg Tablet, 5 MG PO DAILY, TAB 08/30/17 Ibuprofen* (Motrin*) 600 Mg Tab, 600 MG PO Q6H Y for PAIN, TAB 05/16/17 Insulin Lispro (Humalog Kwikpen) 200 Unit/1 Ml Insuln.pen, 5 UNIT SQ AC MEALS, EA 05/16/17 Insulin Glargine,Hum.rec.anlog (Tourehanao Genoostar) 300 Unit/1 Ml Insuln.pen, 10 UNIT SQ QHS 05/16/17 Omeprazole* (Omeprazole*) 20 Mg Capsule.dr, 20 MG PO DAILY, #30 CAP 05/16/17 Metformin Hcl* (Metformin Hcl*) 1,000 Mg Tablet, 1000 MG PO BID WITH MEALS, TAB 06/13/15 Lisinopril* (Lisinopril*) 20 Mg Tablet, 20 MG PO DAILY, TAB 06/13/15 Aspirin (Low Dose Aspirin) 81 Mg Tablet.dr, 81 MG PO DAILY 06/13/15 Discontinued Scripts Ferrous Sulfate (Ferrous Sulfate) 324 Mg Tabsr, 324 MG PO BID, #60 0 Refills Prov:GRAY GARSIA MD 01/18/16 Amlodipine Besylate* (Norvasc*) 5 Mg Tablet, 10 MG PO DAILY, #30 TAB 1 Refill Prov:GRAY GARSIA MD 01/18/16 Carvedilol* (Carvedilol*) 25 Mg Tablet, 50 MG PO BID, #60 TAB 1 Refill Prov:GRAY GARSIA MD 01/18/16 Follow-up Plan 1.Follow-up with (Oncologist) in 2-3 days [id number] [facility] [address] [place] [address] Office 2.Follow-up with (Surgeon)in 1 week [id number] [facility] [address] [place] [address] Office 3.Follow-up with (Senior Network Architect) in 1 week [address] [facility] [place] [address] Office 4.Follow-up with (Kidney doctor) in 1 week [id number] [facility] [address] [place] [address] Office 5.Follow up with primary care physician in 1 week If you don't have one please let someone know, we can give you resources that may help you pick one. You may also call your insurance company to assign one to you. Review your medication list with your nurse before leaving and if you need new prescriptions please let your nurse know. I may have made changes to your home medications or given you new prescriptions, please let your primary doctor know as well. Stay compliant with your medications and report any side effects to your PCP or pharmacist. Return to the ER if you have any concerns and cannot reach your doctors or call your insurance company, they usually have a nurse that can help you. 6. Call 911 or go to the nearest emergency room if experiencing loss of consciousness, dizziness, chest pain, shortness of breath, vomiting/abdominal pain, speech difficulties, motor weakness or any unusual symptoms. Primary Care Provider Not On Staff Doctor Pending Labs Laboratory Tests Test 09/04/17 11:50 09/04/17 17:38 09/04/17 18:05 09/04/17 18:19 Bedside Glucose 118mg/dL (70-220) 64mg/dL (70-220) 105mg/dL (70-220) 112mg/dL (70-220) Test 09/04/17 21:36 09/05/17 05:01 09/05/17 08:05 Bedside Glucose 136mg/dL (70-220) 178mg/dL (70-220) White Blood Count 11.010^3/ul (4.8-10.8) Red Blood Count 3.7610^6/ul (4.20-5.40) Hemoglobin 10.0g/dl (12.0-16.0) Hematocrit 32.6% (37.0-47.0) Mean Corpuscular Volume 86.7fl (82.0-101.0) Mean Corpuscular Hemoglobin 26.6pg (29.0-33.0) Mean Corpuscular Hemoglobin Concent 30.7g/dl (32.0-37.0) Red Cell Distribution Width 13.7% (11.5-14.5) Platelet Count 02528^3/UL (140-415) Mean Platelet Volume 9.7fl (7.4-10.4) Neutrophils % 72.5% (39.0-77.0) Lymphocytes % 16.7% (15.0-51.0) Monocytes % 6.4% (0.0-11.0) Eosinophils % 3.5% (0.0-7.0) Basophils % 0.4% (0.0-2.0) Nucleated Red Blood Cells % 0.0/100WBC (0.0-0.0) Neutrophils # 8.010^3/ul (1.6-7.5) Lymphocytes # 1.810^3/ul (0.8-2.9) Monocytes # 0.710^3/ul (0.3-0.9) Eosinophils # 0.410^3/ul (0.0-0.5) Basophils # 0.010^3/ul (0.0-0.1) Nucleated Red Blood Cells # 0.010^3/ul (0.0-0.0) Sodium Level 143mmol/L (135-144) Potassium Level 3.7mmol/L (3.5-5.1) Chloride Level 108mmol/L (97-110) Carbon Dioxide Level 23mmol/L (21-31) Anion Gap 16 (8-16) Blood Urea Nitrogen 9mg/dl (7-20) Creatinine 1.25mg/dl (0.44-1.00) Glucose Level 135mg/dl (70-220) Calcium Level 8.0mg/dl (8.4-10.2) Magnesium Level 1.8mg/dl (1.7-2.5) BERNARD PYLE NP Sep 05, 2017 11:29
--- NOTE | 2017-09-05 11:29 | DS ---
Date/Time of Note Date/Time of Note DATE: 09/05/17 TIME: 11:29 Discharge Summary Admission/Discharge Info Admit Date/Time Aug 30, 2017 at 10:29 Discharge Date/Time Discharge Diagnosis 1. 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 Needs outpatient PET scan and follow-up with and Dr. Matos. 2. Iron deficient Anemia with rectal bleed 2/2 colon malignancy. 3. K.Pneumoniae Urinary tract infection with possible emphysematous cystitis. 4. Hx biliary Pancreatitis, status post ERCP with sphincterotomy and stent placement. Needs biliary stent removal as outpatient with . 5. RODRICK on likely CKD. Note patient with long-standing hx of DM put her at risk of DM nephropathy. Renal function stabilized. 6. Essential hypertension 7. Hypercholesterolemia. 8. Type 2 diabetes. A1C 8.9. 9. Diabetic neuropathy. 10. Diabetic foot ulcer, right. Chronic 11. Peripheral vascular disease, status post left AKA. 12. Constipation. Consults , oncology , gastroenterology Dr. Matos, surgery Procedures 08/31/2017. Colonoscopy. Impression: Large semicircumferential malignant mass mid ascending colon. Multiple biopsies obtained. Localization tattoo applied. Moderate-sized internal hemorrhoids Otherwise normal colonoscopy to cecum 09/01/2017. CT abdomen and pelvis with IV contrast. IMPRESSION: 1. A mass is identified in the ascending colon extending from just above the cecum to just below the hepatic flexure. It measures between 4.7 and 6.7 cm in length. Invasion of tumor into the serosa may be present. 2. Interval development of a 8.5 mm lesion in the spleen. Splenic metastasis must be considered. Consider PET CT scan for further evaluation. 3. Pericholecystic fluid. 4. Moderate intrahepatic and extrahepatic biliary ductal dilatation. Biliary stent extending from the level of the common hepatic duct to the duodenum. 5. Renal cortical scarring with a 4 mm subcapsular benign cyst in the dorsal midpole of the right kidney. 6. Benign hemangioma in the right side of L3. 7. Retroverted uterus. 8. The urinary bladder contains fluid and air. Etiology unclear. Clinical correlation is needed. 9. Vascular stent in the left inguinal area unchanged compared to 01/14/2016. Hx of Present Illness This is a 72-year-old female with a past medical history of hypertension, hypercholesterolemia, type 2 diabetes, iron deficiency anemia,atherosclerosis, left AKA, Pancreatitis with status post ERCP with sphincterotomy and stent placement, who was sent by patient's primary care doctor for evaluation of anemia with rectal bleed/positive FOBT. Patient denied any visible melena, hematochezia, or hematemesis,unintentional weight loss or poor appetitive. However, she reported that she has been tested for positive occult blood before and her mother of colon cancer. Patient also takes aspirin and iron at home. She is also constipated. Patient denied nausea, vomiting, abdominal pain , loss of appetite, dysuria, hematuria, hemoptysis, cough, chest pain, palpitation, shortness of breath or other constitutional symptoms. Patient denied fever or chills. She denied any hx of cancer.She never had colonoscopy or endoscopy. In the emergency room, patient's hemoglobin was 8.1, hematocrit 26.6, potassium 5.6, BUN 44, and creatinine 2.12. Patient was given 30 g Kayexalate in the emergency room. There is no repeat potassium available at this time. Hospital Course A gastroenterology consultation was called for considering patient for colonoscopy in-house as there was suspicion for colon malignancy with outpatient positive FOBT as well as family history. She was continued on iron supplements. H&H remained stable. Patient did not have any rectal bleed in- house. Her stool OB was also negative. Patient was also seen by oil heater installer for underlying CKD. Her renal function remained at baseline. Hyperkalemia resolved. Patient was continued on insulin for underlying diabetes. She was also continued on her home medications for hypertension and hypercholesterolemia. Patient was then evaluated by title one teacher. On , patient had undergone colonoscopy with the findings of Large semicircumferential malignant mass mid ascending colon and moderate-sized internal hemorrhoids. A CT abdomen and pelvis with IV contrast showed 4.7 and 6.7 cm in length mass in the ascending colon extending from just above the cecum to just below the hepatic flexure with interval development of a 8.5 mm lesion in the spleen with possible Splenic metastasis. Pathology was positive for moderately well-differentiated adenocarcinoma. Patient was evaluated by surgery and oncology services. Recommendation is outpatient PET scan to determine whether tumor had mets to other organs and determine whether patient can be benefited from surgical approach versus chemotherapy. CT abdomen and pelvis also suggestive of some fluid and air in the urinary bladder . Patient was also noted with Klebsiella pneumoniae urinary tract infection and this is the most likely culprit of CT findings of possible emphysematous cystitis. This was treated with IV antibiotics and Pathak cath insertion. Patient did not have any further urinary symptoms of dysuria, hematuria or urgency or retention. At this time, there is no further workup indicated for this. Patient was feeling back to her baseline. She was able to tolerate diet and activities well. At this time, as per surgery and oncology recommendation, best recommendation is to discharge patient home with outpatient PET scan and outpatient surgery and oncology follow-up. Patient was also recommended to follow-up with gastroenterology as she also needs to have biliary stent removed prior to any further surgical intervention for her underlying colon cancer. Patient and family verbalized discharge instructions. At this time I would like to thank Dr. Sánchez, Dr. Matos, Dr. Nevarez and for seeing the patient, providing medical recommendation and performing appropriate procedures on this patient. Patient was seen in collaboration with . Approximately 60 minutes was spent in coordinating the discharge on this patient. Home Meds Active Scripts Ferrous Sulfate* (Ferrous Sulfate*) 325 Mg Tabec, 325 MG PO BID, #60 TAB Prov:PYLE,BERNARD V. HANDLE BAR ASSEMBLER 09/05/17 Hydrocodone/Acetaminophen ([place] 5-325 Tablet) 1 Each Tablet, 1 EACH PO Q6H for PAIN, #30 TAB Prov:PYLE,BERNARD V. HANDLE BAR ASSEMBLER 09/05/17 Ciprofloxacin Hcl* (Ciprofloxacin Hcl*) 500 Mg Tablet, 500 MG PO BID, #10 TAB Prov:PYLE,BERNARD V. HANDLE BAR ASSEMBLER 09/05/17 Bisacodyl* (Bisacodyl*) 5 Mg Tablet., 5 MG PO DAILY Y for CONSTIPATION, #30 TAB Prov:PYLE,BERNARD V. HANDLE BAR ASSEMBLER 09/05/17 Docusate Sodium (Dok) 100 Mg Capsule, 100 MG PO BID, #60 CAP Prov:PYLE,BERNARD V. HANDLE BAR ASSEMBLER 09/05/17 Reported Medications Omeprazole* (Omeprazole*) 20 Mg Capsule., 20 MG PO DAILY, #30 CAP 08/30/17 Losartan Potassium* (Losartan Potassium*) 25 Mg Tablet, 25 MG PO DAILY, TAB 08/30/17 Simvastatin* (Zocor*) 10 Mg Tablet, 10 MG PO QHS, #30 TAB 08/30/17 Insulin Glargine/Lixisenatide (Soliqua 100 Unit-33 Mcg/ml Pen) 3 Ml Insuln.pen, 20 UNITS SQ DAILY 08/30/17 Carvedilol* (Coreg*) 12.5 Mg Tablet, 12.5 MG PO BID, #60 TAB 08/30/17 Aspirin* (Aspirin* EC) 81 Mg Tablet.dr, 81 MG PO DAILY, TAB 08/30/17 Gabapentin* (Gabapentin*) 100 Mg Capsule, 100 MG PO TID, #90 CAP 01/14/16 Levetiracetam* (Levetiracetam*) 500 Mg Tablet, 500 MG PO BID, TAB 06/13/15 Discontinued Reported Medications Levetiracetam* (Keppra*) 500 Mg Tablet, 500 MG PO BID, TAB 08/30/17 Amlodipine Besylate* (Norvasc*) 5 Mg Tablet, 5 MG PO DAILY, TAB 08/30/17 Ibuprofen* (Motrin*) 600 Mg Tab, 600 MG PO Q6H Y for PAIN, TAB 05/16/17 Insulin Lispro (Humalog Kwikpen) 200 Unit/1 Ml Insuln.pen, 5 UNIT SQ AC MEALS, EA 05/16/17 Insulin Glargine,Hum.rec.anlog (Tourehanao Genoostar) 300 Unit/1 Ml Insuln.pen, 10 UNIT SQ QHS 05/16/17 Omeprazole* (Omeprazole*) 20 Mg Capsule.dr, 20 MG PO DAILY, #30 CAP 05/16/17 Metformin Hcl* (Metformin Hcl*) 1,000 Mg Tablet, 1000 MG PO BID WITH MEALS, TAB 06/13/15 Lisinopril* (Lisinopril*) 20 Mg Tablet, 20 MG PO DAILY, TAB 06/13/15 Aspirin (Low Dose Aspirin) 81 Mg Tablet.dr, 81 MG PO DAILY 06/13/15 Discontinued Scripts Ferrous Sulfate (Ferrous Sulfate) 324 Mg Tabsr, 324 MG PO BID, #60 0 Refills Prov:GRAY GARSIA MD 01/18/16 Amlodipine Besylate* (Norvasc*) 5 Mg Tablet, 10 MG PO DAILY, #30 TAB 1 Refill Prov:GRAY GARSIA MD 01/18/16 Carvedilol* (Carvedilol*) 25 Mg Tablet, 50 MG PO BID, #60 TAB 1 Refill Prov:GRAY GARSIA MD 01/18/16 Follow-up Plan 1.Follow-up with (Oncologist) in 2-3 days [id number] [facility] [address] [place] [address] Office 2.Follow-up with (Surgeon)in 1 week [id number] [facility] [address] [place] [address] Office 3.Follow-up with (Frame Opener) in 1 week [id number] [facility] [place] [address] Office 4.Follow-up with (Kidney doctor) in 1 week [id number] [facility] [address] [place] [address] Office 5.Follow up with primary care physician in 1 week If you don't have one please let someone know, we can give you resources that may help you pick one. You may also call your insurance company to assign one to you. Review your medication list with your nurse before leaving and if you need new prescriptions please let your nurse know. I may have made changes to your home medications or given you new prescriptions, please let your primary doctor know as well. Stay compliant with your medications and report any side effects to your PCP or pharmacist. Return to the ER if you have any concerns and cannot reach your doctors or call your insurance company, they usually have a nurse that can help you. 6. Call 911 or go to the nearest emergency room if experiencing loss of consciousness, dizziness, chest pain, shortness of breath, vomiting/abdominal pain, speech difficulties, motor weakness or any unusual symptoms. Primary Care Provider Not On Staff Doctor Pending Labs Laboratory Tests Test 09/04/17 11:50 09/04/17 17:38 09/04/17 18:05 09/04/17 18:19 Bedside Glucose 118mg/dL (70-220) 64mg/dL (70-220) 105mg/dL (70-220) 112mg/dL (70-220) Test 09/04/17 21:36 09/05/17 05:01 09/05/17 08:05 Bedside Glucose 136mg/dL (70-220) 178mg/dL (70-220) White Blood Count 11.010^3/ul (4.8-10.8) Red Blood Count 3.7610^6/ul (4.20-5.40) Hemoglobin 10.0g/dl (12.0-16.0) Hematocrit 32.6% (37.0-47.0) Mean Corpuscular Volume 86.7fl (82.0-101.0) Mean Corpuscular Hemoglobin 26.6pg (29.0-33.0) Mean Corpuscular Hemoglobin Concent 30.7g/dl (32.0-37.0) Red Cell Distribution Width 13.7% (11.5-14.5) Platelet Count 61881^3/UL (140-415) Mean Platelet Volume 9.7fl (7.4-10.4) Neutrophils % 72.5% (39.0-77.0) Lymphocytes % 16.7% (15.0-51.0) Monocytes % 6.4% (0.0-11.0) Eosinophils % 3.5% (0.0-7.0) Basophils % 0.4% (0.0-2.0) Nucleated Red Blood Cells % 0.0/100WBC (0.0-0.0) Neutrophils # 8.010^3/ul (1.6-7.5) Lymphocytes # 1.810^3/ul (0.8-2.9) Monocytes # 0.710^3/ul (0.3-0.9) Eosinophils # 0.410^3/ul (0.0-0.5) Basophils # 0.010^3/ul (0.0-0.1) Nucleated Red Blood Cells # 0.010^3/ul (0.0-0.0) Sodium Level 143mmol/L (135-144) Potassium Level 3.7mmol/L (3.5-5.1) Chloride Level 108mmol/L (97-110) Carbon Dioxide Level 23mmol/L (21-31) Anion Gap 16 (8-16) Blood Urea Nitrogen 9mg/dl (7-20) Creatinine 1.25mg/dl (0.44-1.00) Glucose Level 135mg/dl (70-220) Calcium Level 8.0mg/dl (8.4-10.2) Magnesium Level 1.8mg/dl (1.7-2.5) BERNARD PYLE NP Sep 05, 2017 11:29
--- NOTE | 2017-09-05 11:29 | DS ---
Date/Time of Note Date/Time of Note DATE: 09/05/17 TIME: 11:29 Discharge Summary Admission/Discharge Info Admit Date/Time Aug 30, 2017 at 10:29 Discharge Date/Time Discharge Diagnosis 1. 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 Needs outpatient PET scan and follow-up with and Dr. Matos. 2. Iron deficient Anemia with rectal bleed 2/2 colon malignancy. 3. K.Pneumoniae Urinary tract infection with possible emphysematous cystitis. 4. Hx biliary Pancreatitis, status post ERCP with sphincterotomy and stent placement. Needs biliary stent removal as outpatient with . 5. RODRICK on likely CKD. Note patient with long-standing hx of DM put her at risk of DM nephropathy. Renal function stabilized. 6. Essential hypertension 7. Hypercholesterolemia. 8. Type 2 diabetes. A1C 8.9. 9. Diabetic neuropathy. 10. Diabetic foot ulcer, right. Chronic 11. Peripheral vascular disease, status post left AKA. 12. Constipation. Consults , oncology , gastroenterology Dr. Matos, surgery Procedures 08/31/2017. Colonoscopy. Impression: Large semicircumferential malignant mass mid ascending colon. Multiple biopsies obtained. Localization tattoo applied. Moderate-sized internal hemorrhoids Otherwise normal colonoscopy to cecum 09/01/2017. CT abdomen and pelvis with IV contrast. IMPRESSION: 1. A mass is identified in the ascending colon extending from just above the cecum to just below the hepatic flexure. It measures between 4.7 and 6.7 cm in length. Invasion of tumor into the serosa may be present. 2. Interval development of a 8.5 mm lesion in the spleen. Splenic metastasis must be considered. Consider PET CT scan for further evaluation. 3. Pericholecystic fluid. 4. Moderate intrahepatic and extrahepatic biliary ductal dilatation. Biliary stent extending from the level of the common hepatic duct to the duodenum. 5. Renal cortical scarring with a 4 mm subcapsular benign cyst in the dorsal midpole of the right kidney. 6. Benign hemangioma in the right side of L3. 7. Retroverted uterus. 8. The urinary bladder contains fluid and air. Etiology unclear. Clinical correlation is needed. 9. Vascular stent in the left inguinal area unchanged compared to 01/14/2016. Hx of Present Illness This is a 72-year-old female with a past medical history of hypertension, hypercholesterolemia, type 2 diabetes, iron deficiency anemia,atherosclerosis, left AKA, Pancreatitis with status post ERCP with sphincterotomy and stent placement, who was sent by patient's primary care doctor for evaluation of anemia with rectal bleed/positive FOBT. Patient denied any visible melena, hematochezia, or hematemesis,unintentional weight loss or poor appetitive. However, she reported that she has been tested for positive occult blood before and her mother of colon cancer. Patient also takes aspirin and iron at home. She is also constipated. Patient denied nausea, vomiting, abdominal pain , loss of appetite, dysuria, hematuria, hemoptysis, cough, chest pain, palpitation, shortness of breath or other constitutional symptoms. Patient denied fever or chills. She denied any hx of cancer.She never had colonoscopy or endoscopy. In the emergency room, patient's hemoglobin was 8.1, hematocrit 26.6, potassium 5.6, BUN 44, and creatinine 2.12. Patient was given 30 g Kayexalate in the emergency room. There is no repeat potassium available at this time. Hospital Course A gastroenterology consultation was called for considering patient for colonoscopy in-house as there was suspicion for colon malignancy with outpatient positive FOBT as well as family history. She was continued on iron supplements. H&H remained stable. Patient did not have any rectal bleed in- house. Her stool OB was also negative. Patient was also seen by chemical test engineer for underlying CKD. Her renal function remained at baseline. Hyperkalemia resolved. Patient was continued on insulin for underlying diabetes. She was also continued on her home medications for hypertension and hypercholesterolemia. Patient was then evaluated by dye tub operator. On , patient had undergone colonoscopy with the findings of Large semicircumferential malignant mass mid ascending colon and moderate-sized internal hemorrhoids. A CT abdomen and pelvis with IV contrast showed 4.7 and 6.7 cm in length mass in the ascending colon extending from just above the cecum to just below the hepatic flexure with interval development of a 8.5 mm lesion in the spleen with possible Splenic metastasis. Pathology was positive for moderately well-differentiated adenocarcinoma. Patient was evaluated by surgery and oncology services. Recommendation is outpatient PET scan to determine whether tumor had mets to other organs and determine whether patient can be benefited from surgical approach versus chemotherapy. CT abdomen and pelvis also suggestive of some fluid and air in the urinary bladder . Patient was also noted with Klebsiella pneumoniae urinary tract infection and this is the most likely culprit of CT findings of possible emphysematous cystitis. This was treated with IV antibiotics and Pathak cath insertion. Patient did not have any further urinary symptoms of dysuria, hematuria or urgency or retention. At this time, there is no further workup indicated for this. Patient was feeling back to her baseline. She was able to tolerate diet and activities well. At this time, as per surgery and oncology recommendation, best recommendation is to discharge patient home with outpatient PET scan and outpatient surgery and oncology follow-up. Patient was also recommended to follow-up with gastroenterology as she also needs to have biliary stent removed prior to any further surgical intervention for her underlying colon cancer. Patient and family verbalized discharge instructions. At this time I would like to thank Dr. Sánchez, Dr. Matos, Dr. Nevarez and for seeing the patient, providing medical recommendation and performing appropriate procedures on this patient. Patient was seen in collaboration with . Approximately 60 minutes was spent in coordinating the discharge on this patient. Home Meds Active Scripts Ferrous Sulfate* (Ferrous Sulfate*) 325 Mg Tabec, 325 MG PO BID, #60 TAB Prov:PYLE,BERNARD V. LOGGING EQUIPMENT MECHANIC 09/05/17 Hydrocodone/Acetaminophen ([place] 5-325 Tablet) 1 Each Tablet, 1 EACH PO Q6H for PAIN, #30 TAB Prov:PYLE,BERNARD V. LOGGING EQUIPMENT MECHANIC 09/05/17 Ciprofloxacin Hcl* (Ciprofloxacin Hcl*) 500 Mg Tablet, 500 MG PO BID, #10 TAB Prov:PYLE,BERNARD V. LOGGING EQUIPMENT MECHANIC 09/05/17 Bisacodyl* (Bisacodyl*) 5 Mg Tablet., 5 MG PO DAILY Y for CONSTIPATION, #30 TAB Prov:PYLE,BERNARD V. LOGGING EQUIPMENT MECHANIC 09/05/17 Docusate Sodium (Dok) 100 Mg Capsule, 100 MG PO BID, #60 CAP Prov:PYLE,BERNARD V. LOGGING EQUIPMENT MECHANIC 09/05/17 Reported Medications Omeprazole* (Omeprazole*) 20 Mg Capsule., 20 MG PO DAILY, #30 CAP 08/30/17 Losartan Potassium* (Losartan Potassium*) 25 Mg Tablet, 25 MG PO DAILY, TAB 08/30/17 Simvastatin* (Zocor*) 10 Mg Tablet, 10 MG PO QHS, #30 TAB 08/30/17 Insulin Glargine/Lixisenatide ([place] 100 Unit-33 Mcg/ml Pen) 3 Ml Insuln.pen, 20 UNITS SQ DAILY 08/30/17 Carvedilol* (Coreg*) 12.5 Mg Tablet, 12.5 MG PO BID, #60 TAB 08/30/17 Aspirin* (Aspirin* EC) 81 Mg Tablet.dr, 81 MG PO DAILY, TAB 08/30/17 Gabapentin* (Gabapentin*) 100 Mg Capsule, 100 MG PO TID, #90 CAP 01/14/16 Levetiracetam* (Levetiracetam*) 500 Mg Tablet, 500 MG PO BID, TAB 06/13/15 Discontinued Reported Medications Levetiracetam* (Keppra*) 500 Mg Tablet, 500 MG PO BID, TAB 08/30/17 Amlodipine Besylate* (Norvasc*) 5 Mg Tablet, 5 MG PO DAILY, TAB 08/30/17 Ibuprofen* (Motrin*) 600 Mg Tab, 600 MG PO Q6H Y for PAIN, TAB 05/16/17 Insulin Lispro (Humalog Kwikpen) 200 Unit/1 Ml Insuln.pen, 5 UNIT SQ AC MEALS, EA 05/16/17 Insulin Glargine,Hum.rec.anlog (Tourehanao Genoostar) 300 Unit/1 Ml Insuln.pen, 10 UNIT SQ QHS 05/16/17 Omeprazole* (Omeprazole*) 20 Mg Capsule.dr, 20 MG PO DAILY, #30 CAP 05/16/17 Metformin Hcl* (Metformin Hcl*) 1,000 Mg Tablet, 1000 MG PO BID WITH MEALS, TAB 06/13/15 Lisinopril* (Lisinopril*) 20 Mg Tablet, 20 MG PO DAILY, TAB 06/13/15 Aspirin (Low Dose Aspirin) 81 Mg Tablet.dr, 81 MG PO DAILY 06/13/15 Discontinued Scripts Ferrous Sulfate (Ferrous Sulfate) 324 Mg Tabsr, 324 MG PO BID, #60 0 Refills Prov:GRAY GARSIA MD 01/18/16 Amlodipine Besylate* (Norvasc*) 5 Mg Tablet, 10 MG PO DAILY, #30 TAB 1 Refill Prov:GRAY GARSIA MD 01/18/16 Carvedilol* (Carvedilol*) 25 Mg Tablet, 50 MG PO BID, #60 TAB 1 Refill Prov:GRAY GARSIA MD 01/18/16 Follow-up Plan 1.Follow-up with (Oncologist) in 2-3 days [id number] [facility] [address] [place] [address] Office 2.Follow-up with (Surgeon)in 1 week [id number] [facility] [address] [place] [address] Office 3.Follow-up with (Horse Show Judge) in 1 week [id number] [facility] [place] [address] Office 4.Follow-up with (Kidney doctor) in 1 week [id number] [facility] [address] [place] [address] Office 5.Follow up with primary care physician in 1 week If you don't have one please let someone know, we can give you resources that may help you pick one. You may also call your insurance company to assign one to you. Review your medication list with your nurse before leaving and if you need new prescriptions please let your nurse know. I may have made changes to your home medications or given you new prescriptions, please let your primary doctor know as well. Stay compliant with your medications and report any side effects to your PCP or pharmacist. Return to the ER if you have any concerns and cannot reach your doctors or call your insurance company, they usually have a nurse that can help you. 6. Call 911 or go to the nearest emergency room if experiencing loss of consciousness, dizziness, chest pain, shortness of breath, vomiting/abdominal pain, speech difficulties, motor weakness or any unusual symptoms. Primary Care Provider Not On Staff Doctor Pending Labs Laboratory Tests Test 09/04/17 11:50 09/04/17 17:38 09/04/17 18:05 09/04/17 18:19 Bedside Glucose 118mg/dL (70-220) 64mg/dL (70-220) 105mg/dL (70-220) 112mg/dL (70-220) Test 09/04/17 21:36 09/05/17 05:01 09/05/17 08:05 Bedside Glucose 136mg/dL (70-220) 178mg/dL (70-220) White Blood Count 11.010^3/ul (4.8-10.8) Red Blood Count 3.7610^6/ul (4.20-5.40) Hemoglobin 10.0g/dl (12.0-16.0) Hematocrit 32.6% (37.0-47.0) Mean Corpuscular Volume 86.7fl (82.0-101.0) Mean Corpuscular Hemoglobin 26.6pg (29.0-33.0) Mean Corpuscular Hemoglobin Concent 30.7g/dl (32.0-37.0) Red Cell Distribution Width 13.7% (11.5-14.5) Platelet Count 94510^3/UL (140-415) Mean Platelet Volume 9.7fl (7.4-10.4) Neutrophils % 72.5% (39.0-77.0) Lymphocytes % 16.7% (15.0-51.0) Monocytes % 6.4% (0.0-11.0) Eosinophils % 3.5% (0.0-7.0) Basophils % 0.4% (0.0-2.0) Nucleated Red Blood Cells % 0.0/100WBC (0.0-0.0) Neutrophils # 8.010^3/ul (1.6-7.5) Lymphocytes # 1.810^3/ul (0.8-2.9) Monocytes # 0.710^3/ul (0.3-0.9) Eosinophils # 0.410^3/ul (0.0-0.5) Basophils # 0.010^3/ul (0.0-0.1) Nucleated Red Blood Cells # 0.010^3/ul (0.0-0.0) Sodium Level 143mmol/L (135-144) Potassium Level 3.7mmol/L (3.5-5.1) Chloride Level 108mmol/L (97-110) Carbon Dioxide Level 23mmol/L (21-31) Anion Gap 16 (8-16) Blood Urea Nitrogen 9mg/dl (7-20) Creatinine 1.25mg/dl (0.44-1.00) Glucose Level 135mg/dl (70-220) Calcium Level 8.0mg/dl (8.4-10.2) Magnesium Level 1.8mg/dl (1.7-2.5) BERNARD PYLE NP Sep 05, 2017 11:29
--- NOTE | 2017-09-05 15:29 | CONS ---
Date/Time of Note Date/Time of Note DATE: 09/05/17 TIME: 15:28 Assessment/Plan Assessment/Plan Chief Complaint/Hosp Course 72-year-old female with a past medical history of hypertension, hypercholesterolemia, type 2 diabetes, iron deficiency anemia,atherosclerosis, left AKA, Pancreatitis with status post ERCP with sphincterotomy and stent placement, who was sent by patient's primary care doctor for evaluation of anemia with rectal bleed/positive FOBT. pt give h/o positive FOBT but denies any BRBPR. Pt denies any previous PMHx of CKD, kidney stone and kidney cyst. In the emergency room, patient's hemoglobin was 8.1, hematocrit 26.6, potassium 5.6, BUN 44, and creatinine 2.12. Patient was given 30 g Kayexalate in the emergency room. pt also has severe iron deficiency with Iron saturation level 7. BP stable, afebrile Renal has been consulted for RODRICK, Metabolic acidosis and Hyperkalemia Problems: Additional Assessment/Plan 1. Non oliguric Acute kidney injury on possible CKD due to prerenal azotemi + ATN 2. 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 Acute hyperkalemia due to RODRICK on CKD 4. Severe Iron deficiency anemia with possible FOBT Positive, pt also has contributing anemia of CKD 5. H/o Type II DM poorly controlled with HBA1c 8.9 6. H/o HTN 7. H/o PVD Plan: Pt has RODRICK on CKD- Today BUN/Cr improving - Cr 1.25, K stable s/p Ferrlecit 125mg IV daily x 5 days- finished it. Renal US and Urine studies c/w low proteinuric CKD and medical renal disease Other plan as per GI and PMD follow up with Dr.Kalpesh Goins in 1-2 week after discharge( office phone # ) Ok to do CT with IV contrast if needed for Cancer staging work up will follow up Consultation Date/Type/Reason Admit Date/Time Aug 30, 2017 at 10:29 Initial Consult Date 08/30/17 Type of Consultation: NEPHROLOGY Referring Provider: BERNARD PYLE NP 24 HR Interval Summary Free Text/Dictation pt was seen in AM, expalined about plan , doing well, BP stable, afebrile Exam/Review of Systems Vital Signs Vitals Vital Signs Date Time Temp Pulse Resp B/P Pulse Ox O2 Delivery O2 Flow Rate FiO2 09/05/17 08:24 97.8 78 18 133/59 96 Intake and Output 09/04/17 09/04/17 09/05/17 15:00 23:00 07:00 Intake Total 250 ml 1000 ml 240 ml Output Total 1000 ml 1100 ml Balance 250 ml 0 ml -860 ml Results Result Diagram: 09/05/17 0501 09/05/17 0501 Results 24 hrs Laboratory Tests Test 09/04/17 17:38 09/04/17 18:05 09/04/17 18:19 09/04/17 21:36 Bedside Glucose 64 L 105 112 136 Test 09/05/17 05:01 09/05/17 08:05 09/05/17 11:41 White Blood Count 11.0 #H Red Blood Count 3.76 L Hemoglobin 10.0 L Hematocrit 32.6 L Mean Corpuscular Volume 86.7 Mean Corpuscular Hemoglobin 26.6 L Mean Corpuscular Hemoglobin Concent 30.7 L Red Cell Distribution Width 13.7 Platelet Count 380 Mean Platelet Volume 9.7 Neutrophils % 72.5 Lymphocytes % 16.7 Monocytes % 6.4 Eosinophils % 3.5 Basophils % 0.4 Nucleated Red Blood Cells % 0.0 Neutrophils # 8.0 H Lymphocytes # 1.8 Monocytes # 0.7 Eosinophils # 0.4 Basophils # 0.0 Nucleated Red Blood Cells # 0.0 Sodium Level 143 Potassium Level 3.7 Chloride Level 108 Carbon Dioxide Level 23 Anion Gap 16 Blood Urea Nitrogen 9 Creatinine 1.25 H Glucose Level 135 # Calcium Level 8.0 L Magnesium Level 1.8 Bedside Glucose 178 195 SHADI GOINS MD Sep 05, 2017 15:29
--- NOTE | 2017-09-05 16:04 | CONS ---
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 -out patient PET CT to be performed -if patient has disease localized to colon or oligometastatic disease to spleen she will be a candidate for surgery -if she has wide spread metastatic disease will need to start on systemic chemotherapy #Iron deficient Anemia -will check iron studies as an out patient -decide on IV iron at that time -s/p 1 unit of PRBC in house -continue po iron for now # Hx biliary Pancreatitis, status post ERCP with sphincterotomy and stent placement. -will need biliary stent removal as outpatient with #RODRICK on likely CKD from DM -continue to monitor Note patient with long-standing hx of DM put her at risk of DM nephropathy. Renal function stabilized. # Essential hypertension -continue current management per PMD # Hypercholesterolemia. -continue current management per PMD #Type 2 diabetes. A1C 8.9. -continue current management per PMD # Peripheral vascular disease, status post left AKA. --continue current management per PMD Problems: Consultation Date/Type/Reason Admit Date/Time Aug 30, 2017 at 10:29 Date of Consultation: Sep 05, 2017 Type of Consultation: oncology Reason for Consultation adenocarcinoma of colon Referring Provider: BERNARD PYLE NP Hx of Present Illness 72-year-old female with multiple medical problems including hypertension, hypercholesterolemia, type 2 diabetes, Pancreatitis with status post ERCP with sphincterotomy and stent placement, who was sent by patient's primary care doctor for evaluation of anemia with rectal bleed/positive FOBT. Patient denied any visible melena, hematochezia, or hematemesis,unintentional weight loss or poor appetitive. Of note patient had a ERCP with stent placement for gall stone pancreatitis. In the emergency room, patient's hemoglobin was 8.1, hematocrit 26.6, potassium 5.6, BUN 44, and creatinine 2.12. Patient was given 30 g Kayexalate in the emergency room. There is no repeat potassium available at this time. 08/30/17: pt received1 unit or PRBC 08/31/17: colonoscopy revealed Large semicircumferential malignant mass mid ascending colon.Moderate-sized internal hemorrhoids 08/31/17:Pathology revealed Moderately well-differentiated adenocarcinoma. 09/01/17 C TA/P:revealed amass is identified in the ascending colon extending from just above the cecum to just below the hepatic flexure measuring 4.7 and 6.7 cm in length. Invasion of tumor into the serosa may be present. Also ween is a 8.5 mm lesion in the spleen. Splenic metastasis must be considered. Consider PET CT scan for further evaluation. Also seen is moderate intrahepatic and extrahepatic biliary ductal dilatation. Biliary stent extending from the level of the common hepatic duct to the duodenum. Constitutional: improved, No chills, No diaphoresis, No febrile Eyes: no complaints ENT: no complaints Respiratory: no complaints Cardiovascular: no complaints Gastrointestinal: blood (Black tarry stools), constipation, flatus, pain ( Minimal), No nausea, No vomiting Genitourinary: no complaints, No dysuria Musculoskeletal: no complaints, No back pain Skin: no complaints, No bruising Neurologic: no complaints Endocrine: no complaints Lymphatic: no complaints Psychological: nl mood/affect, No anxiety Immunologic: no complaints Past Medical History hypertension hypercholesterolemia type 2 diabetes iron deficiency anemia atherosclerosis left AKA, gallstone Pancreatitis status post ERCP with sphincterotomy and stent placement 01/2017 Medical History: other Family History Significant Family History: no pertinent family hx Social History Alcohol Use: none Smoking Status: Never smoker Drug Use: none Exam/Review of Systems Vital Signs Vitals Vital Signs Date Time Temp Pulse Resp B/P Pulse Ox O2 Delivery O2 Flow Rate FiO2 09/05/17 08:24 97.8 78 18 133/59 96 Intake and Output 09/04/17 09/04/17 09/05/17 15:00 23:00 07:00 Intake Total 250 ml 1000 ml 240 ml Output Total 1000 ml 1100 ml Balance 250 ml 0 ml -860 ml Exam Constitutional: alert, frail, oriented Psych: no complaints Head: normocephalic Eyes: nl conjunctiva ENMT: nl external ears & nose, nl lips & teeth Neck: non-tender, supple Respiratory: clear to auscultation Cardiovascular: nl pulses, regular rate and rhythm Gastrointestinal: soft Musculoskeletal: nl extremities to inspection, nl gait and stance Extremities: normal pulses Results Result Diagram: 09/05/17 0501 09/05/17 0501 Results 24 hrs Laboratory Tests Test 09/04/17 17:38 09/04/17 18:05 09/04/17 18:19 09/04/17 21:36 Bedside Glucose 64 L 105 112 136 Test 09/05/17 05:01 09/05/17 08:05 09/05/17 11:41 White Blood Count 11.0 #H Red Blood Count 3.76 L Hemoglobin 10.0 L Hematocrit 32.6 L Mean Corpuscular Volume 86.7 Mean Corpuscular Hemoglobin 26.6 L Mean Corpuscular Hemoglobin Concent 30.7 L Red Cell Distribution Width 13.7 Platelet Count 380 Mean Platelet Volume 9.7 Neutrophils % 72.5 Lymphocytes % 16.7 Monocytes % 6.4 Eosinophils % 3.5 Basophils % 0.4 Nucleated Red Blood Cells % 0.0 Neutrophils # 8.0 H Lymphocytes # 1.8 Monocytes # 0.7 Eosinophils # 0.4 Basophils # 0.0 Nucleated Red Blood Cells # 0.0 Sodium Level 143 Potassium Level 3.7 Chloride Level 108 Carbon Dioxide Level 23 Anion Gap 16 Blood Urea Nitrogen 9 Creatinine 1.25 H Glucose Level 135 # Calcium Level 8.0 L Magnesium Level 1.8 Bedside Glucose 178 195 ANGELA MENDOZA M.D. Sep 05, 2017 16:04
[2017-09-05] MEDS ORDERED: PANTOPRAZOLE (EC) 40 MG TAB PO SCH (18:00)
== END 2017-09-05 14:27 | disposition home or self-care (01) | DRG 374 ==
LOC: E/R 09:06 → MS3 10:29 → UNDOADMIN 10:29 → PP2 15:40
PROVIDERS: ADMIT Hospitalist; ATTEND Hospitalist
PROC: 0DBK8ZX Excision of Ascending Colon, Via Natural or Artificial Opening Endoscopic, Diagnostic (ICD-10-PCS; principal; 2017-08-31 22:30)
DX: C18.2 Malignant neoplasm of ascending colon (principal); N17.0 Acute kidney failure with tubular necrosis; E87.2 Acidosis; K92.2 Gastrointestinal hemorrhage, unspecified; E11.22 Type 2 diabetes mellitus with diabetic chronic kidney disease; C78.89 Secondary malignant neoplasm of other digestive organs; E87.5 Hyperkalemia; B96.1 Klebsiella pneumoniae [K. pneumoniae] as the cause of diseases classified elsewhere; D50.9 Iron deficiency anemia, unspecified; I12.9 Hypertensive chronic kidney disease with stage 1 through stage 4 chronic kidney disease, or unspecified chronic kidney disease; D63.0 Anemia in neoplastic disease; N18.9 Chronic kidney disease, unspecified; Z80.0 Family history of malignant neoplasm of digestive organs; K59.00 Constipation, unspecified; Z89.612 Acquired absence of left leg above knee; N30.80 Other cystitis without hematuria
CPT/HCPCS: 36415; 36430; 74000; 74177; 76775; 80048; 80053; 80061; 81001; 81003; 82270; 82378; 82550; 82570; 82728; 82962; 83036; 83540; 83735; 84100; 84300; 84443; 84484; 84560; 85014; 85018; 85025; 85610; 85730; 86850; 86900; 86901; 86920; 87086; 88305; 89190; 90686; 93005; 94664; C9113; J0360; J0744; J1815; J2543; J2916; J3475; J7030; P9016; Q9967